=== PATIENT | female | born 1960 | race Caucasian/White ===

== ENCOUNTER → 2020-07-28 10:13 | Outpatient (BNVA) | payer OTHER, SELFPAY | PROVIDERS: PCP Internal Medicine Endocrinology, Diabetes & Metabolism; Referring Provider Internal Medicine Endocrinology, Diabetes & Metabolism; Visit Provider Internal Medicine Pulmonary Disease | DX: Z13.89 Encounter for screening for other disorder (principal) ==

== ENCOUNTER → 2021-02-09 11:28 | Outpatient (BNVA) | payer OTHER, SELFPAY | PROVIDERS: PCP Internal Medicine Endocrinology, Diabetes & Metabolism; Visit Provider Internal Medicine Pulmonary Disease ==

== ENCOUNTER 2021-07-04 10:20 | Day surgery (SDC) | payer OTHER, SELFPAY ==
[2021-07-04 10:52] VITALS: BP 125/78; PULSE 82; RESP 20; TEMP 36.6; O2SAT 98; BMI 22.4
[2021-07-04 12:12] VITALS: BP 98/64; PULSE 83; RESP 12; TEMP 36.6; O2SAT 96
--- NOTE | 2021-07-04 12:14 | P.BOP_ITS ---
Brief Operative Note Date of Service: 07/04/21 Pre-op diagnosis: GERD, Dysphagia Post-op diagnosis: other (Gastritis, Hiatal hernia, R/O EOE) Procedure: EGD with Balloon dilation of EG Junction, and biopsies Surgeon: Dominic Weems Anesthesia: MAC Was an Captain Waiter/Waitress used for this Procedure?: No Estimated blood loss (mL): 3.0 Pathology: other (A. Gastric antrum B. Esophagus at 25cm) Condition: stable Disposition: PACU
[2021-07-04 12:27] VITALS: BP 121/70; PULSE 71; RESP 18; TEMP 36.6; O2SAT 97
--- NOTE | 2021-07-04 22:09 | OP_ITS ---
SURGEON: Dominic Weems MD INDICATIONS: The patient presents for evaluation of dysphagia and gastroesophageal reflux. Full consent has been obtained from her for this, including risks of bleeding and perforation. PREOPERATIVE DIAGNOSIS: POSTOPERATIVE DIAGNOSIS: PROCEDURE PERFORMED: Esophagogastroduodenoscopy with balloon dilation of gastroesophageal junction, and biopsies. ESTIMATED BLOOD LOSS: COMPLICATIONS: ANESTHESIA: Monitored anesthesia care. ASSISTANTS: SPECIMENS: PREOPERATIVE DIAGNOSES: Gastroesophageal reflux and dysphagia. POSTOPERATIVE DIAGNOSES: Gastroesophageal reflux and dysphagia, small hiatal hernia, gastritis, rule out eosinophilic esophagitis. DESCRIPTION OF PROCEDURE: The patient was placed in the left lateral decubitus position. The Olympus video gastroscope was passed in the posterior oropharynx and upper esophagus under direct vision. The scope was passed slowly into the distal esophagus. The gastroesophageal junction appeared at 35 cm. There was no sign of any esophagitis. There was no sign of any esophageal stricture nor ring. The scope passed into the stomach easily. There was a minimal hiatal hernia. The scope was advanced to pylorus and duodenum was cannulated to the descending portion. The duodenum including the bulb appeared normal without mass or ulceration. The scope was withdrawn back into the stomach. The gastric antrum and body had some changes of edema and some erythema with associated some mild friability. There were no erosions or ulceration. There was good peristalsis. Biopsies were obtained from the antrum. Scope was retroflexed visualizing the proximal stomach carefully, which also appeared to show some changes consistent with gastritis, but there was no mass or ulceration. The scope was straightened out and withdrawn back into the esophagus. Given her symptomatology, I did use a [employer] incremental balloon to dilate the gastroesophageal junction from 18 mm to 19 mm to 20 mm at the recommended pressure for between 30 and 60 seconds each. Post dilation, there was some small amount of heme noted. The scope was withdrawn through the remainder of the esophagus, which appeared normal. There was no evidence of any proximal esophageal rings nor webs. Biopsies were obtained at 25 cm. The scope was withdrawn from the patient. She tolerated the procedure well and was returned to the recovery area in stable condition. IMPRESSION: 1. Small hiatal hernia. 2. Gastritis. 3. Rule out eosinophilic esophagitis. 4. Status post balloon dilation of gastroesophageal junction. PLAN: The results of the biopsy will be checked. We shall see how she does in response to today's balloon dilation. I shall have her increase the omeprazole to 20 mg b.i.d. and then see her in followup. She may need further evaluation with esophageal motility studies if her symptoms persist. She was advised to resume her aspirin tomorrow. MD EROS Dockery/LULU / [id number]
== END 2021-07-04 12:56 | disposition home or self-care (01) ==
PROVIDERS: Visit Provider Internal Medicine
PROC: (CPT 43249; principal; 2021-07-04 11:30)
DX: R13.19 Other dysphagia (principal); K21.9 Gastro-esophageal reflux disease without esophagitis; K29.70 Gastritis, unspecified, without bleeding; K44.9 Diaphragmatic hernia without obstruction or gangrene; I10 Essential (primary) hypertension; J44.9 Chronic obstructive pulmonary disease, unspecified; I25.2 Old myocardial infarction; Z79.82 Long term (current) use of aspirin; Z79.899 Other long term (current) drug therapy
CPT/HCPCS: 43249; 43239; 88305; 88342; C1726

== ENCOUNTER 2021-07-09 08:12 | Outpatient (REF) | payer OTHER, SELFPAY ==
--- NOTE | ~2021-07-09 | CT_ITS ---
EXAMINATION: CT CHEST WITHOUT CONTRAST CLINICAL INFORMATION: 61-year-old female with history of an abnormal finding of lung. COMPARISON: None TECHNIQUE: Multidetector volumetric CT imaging of the chest was done. Axial MIP volume rendering provided. Sagittal and coronal reformatted images were obtained. This CT examination was performed using dose optimization techniques as appropriate, variously including the following: *Automated exposure control *Adjustment of mA and/or kV according to patient size (this includes techniques or standardized protocols for targeted exams where dose is matched to indication/reason for exam; i.e. extremities or head) *Use of iterative reconstruction technique DLP: 131 mGy-cm FINDINGS: LUNGS AND PLEURA: Trachea and central airways are widely patent and normal in caliber. Mild centrilobular emphysema. Also, mild paraseptal emphysema is noted at lung apices. The subtle centrilobular groundglass attenuation in both lungs likely reflects presence of respiratory bronchiolitis secondary to chronic cigarette smoking (if in the proper clinical context). There is a suture line from wedge resection in the posterior left upper lobe. Linear opacities of atelectasis or scar are present in the lingula and lower lobes. No pulmonary consolidation or pleural effusion. Multiple noncalcified and calcified micronodules are present in both lungs, including a 0.3 cm noncalcified nodule in the lateral left lung apex (image 63, series 7). No suspicious-appearing nodule or mass. A small lymph node is seen along the left major fissure. CARDIOVASCULAR: The heart size is normal. [id number] atherosclerotic calcification of left anterior descending and left circumflex coronary arteries. There is scattered atherosclerotic calcification of the thoracic aorta without aneurysm. Pulmonary arteries are normal in size. Pericardial effusion. MEDIASTINUM AND LOWER NECK: The esophagus and visualized inferior portion of the thyroid gland are unremarkable. No mediastinal mass. LYMPHATICS: No axillary or internal mammary lymphadenopathy. No pathologic sized mediastinal or hilar lymph nodes. UPPER ABDOMEN: Gallbladder is surgically absent. Adrenal glands are normal. SKELETAL AND CHEST WALL: There is hyperkyphosis of the degenerated thoracic spine. Mild height loss of several thoracic vertebra. Also, there is an old T8 vertebral body compression fracture, approximately 45% anterior height loss, status post cement augmentation. No acute compression fractures. Multiple old, healed left rib fractures. CT/CT chest wo con IMPRESSION: * Mild pulmonary emphysema. * Prior wedge resection of posterior left upper lobe. No evidence of nodule or mass in the area of prior surgery. No lymphadenopathy. * Multiple noncalcified and calcified micronodules are present in both lungs, and some of the nodular foci likely represent secretions in peripheral airways. There are no large or suspicious appearing lung nodules. Based on Fleischner Society guidelines, noncontrast chest CT follow-up is not required in a low-risk patient and may be considered optional at 12 months in a high risk patient. * No acute fractures in the degenerated, hyperkyphotic thoracic spine. There has been cement augmentation of the T8 vertebral body compression fracture.
== END 2021-07-09 08:13 | disposition home or self-care (01) ==
LOC: HO.CT 08:12
PROVIDERS: PCP Internal Medicine Endocrinology, Diabetes & Metabolism; Visit Provider Internal Medicine Pulmonary Disease
DX: R91.8 Other nonspecific abnormal finding of lung field (principal)
CPT/HCPCS: 71250

== ENCOUNTER → 2021-07-30 09:57 | Outpatient (BNVA) | payer OTHER, SELFPAY | PROVIDERS: Visit Provider Internal Medicine Pulmonary Disease ==

== ENCOUNTER → 2022-01-11 13:56 | Outpatient (BNVA) | payer OTHER, SELFPAY | PROVIDERS: PCP Internal Medicine Endocrinology, Diabetes & Metabolism; Visit Provider Internal Medicine Pulmonary Disease | DX: Z13.89 Encounter for screening for other disorder (principal) ==

== ENCOUNTER 2022-01-29 12:22 | Outpatient (REF) | payer OTHER, SELFPAY ==
--- NOTE | ~2022-01-29 | CT_ITS ---
EXAMINATION: CT CHEST WITHOUT CONTRAST CLINICAL INFORMATION: Post COVID. COMPARISON: 07/09/2021 TECHNIQUE: Multidetector volumetric CT imaging of the chest was done. Axial MIP volume rendering provided. Sagittal and coronal reformatted images were obtained. This CT examination was performed using dose optimization techniques as appropriate, variously including the following: *Automated exposure control *Adjustment of mA and/or kV according to patient size (this includes techniques or standardized protocols for targeted exams where dose is matched to indication/reason for exam; i.e. extremities or head) *Use of iterative reconstruction technique DLP: 233 mGy-cm FINDINGS: LUNGS: No confluent parenchymal disease is identified. There is some bibasilar dependent atelectasis seen versus scarring. There is some mild bronchial wall thickening present without bronchiectasis which may be related to respiratory bronchiolitis of smoking. There are mild findings of centrilobular emphysema seen bilaterally. Numerous sub-4 mm densities are present bilaterally. Some of these have the appearance of tree-in-bud disease which could be infectious or related to mucus plugging. Calcified granulomas are seen. Patient is status post previous left upper lobe surgery with suture line in place. MEDIASTINUM: Visualized thyroid gland unremarkable. No mediastinal or hilar lymphadenopathy is seen. Heart normal size. Prominent coronary artery calcification present. No pericardial effusion. Nonocclusive calcified plaque seen within the aortic arch. No thoracic aortic aneurysm. PLEURA: There is no pleural effusion. No pleural mass or thickening. AXILLA: No lymphadenopathy. UPPER ABDOMEN: Status post cholecystectomy. OSSEOUS STRUCTURES: No suspicious destructive bony lesion identified. Multiple old healed left rib fractures, some of which may be postsurgical in nature. There is multilevel degenerative disc disease present with augmentation of previous T8 vertebral body fracture. Schmorl's nodes are seen at multiple levels. CT/CT chest wo con IMPRESSION: Old granulomatous disease. Status post previous left upper lobe surgery. Prominent atherosclerotic calcified plaque. No suspicious lung nodules identified. According to the UPDATED 2017 Fleischner Society recommendations, the advised followup imaging for solid nodules < 6 mm is: LOW RISK PATIENT: No routine followup. HIGH RISK PATIENT: Optional CT at 12 months.
== END 2022-01-29 12:23 | disposition home or self-care (01) ==
LOC: HO.CT 12:22
PROVIDERS: PCP Internal Medicine Endocrinology, Diabetes & Metabolism; Visit Provider Internal Medicine Pulmonary Disease
DX: U09.9 Post COVID-19 condition, unspecified (principal); Z90.49 Acquired absence of other specified parts of digestive tract
CPT/HCPCS: 71250

== ENCOUNTER → 2022-02-07 14:23 | Outpatient (BNVA) | payer OTHER, SELFPAY | PROVIDERS: PCP Internal Medicine Endocrinology, Diabetes & Metabolism; Visit Provider Internal Medicine Pulmonary Disease | DX: Z13.89 Encounter for screening for other disorder (principal) ==

== ENCOUNTER → 2022-09-05 14:01 | Outpatient (BNVA) | payer OTHER, SELFPAY | PROVIDERS: PCP Internal Medicine Endocrinology, Diabetes & Metabolism; Visit Provider Internal Medicine Pulmonary Disease | DX: J44.9 Chronic obstructive pulmonary disease, unspecified (principal); Z99.81 Dependence on supplemental oxygen | CPT/HCPCS: 94618 ==

== ENCOUNTER 2022-10-01 07:57 | Outpatient (REF) | payer OTHER, SELFPAY ==
--- NOTE | ~2022-10-01 | XR_ITS ---
EXAMINATION: XR CHEST CLINICAL INFORMATION: COPD COMPARISON: Correlation chest CT 01/29/2022 TECHNIQUE: 2 views of the chest were obtained. FINDINGS: Cardiac and mediastinal silhouette is within normal limits. Relative lucency of the upper lungs bilaterally, suggesting emphysematous changes. There is mild bronchial wall thickening. Patchy opacities in the right lung base, could represent atelectasis or infiltrate. No significant effusion. No pulmonary edema or pneumothorax. Evidence of vertebral body height loss and kyphoplasty in the mid thoracic spine. Osteopenia.. Multilevel dorsal spine degeneration. Surgical clips in the upper abdomen. XR/XR chest 2V IMPRESSION: Emphysema. Bronchial wall thickening can be seen with a small airway process such as asthma or atypical/viral infections. Right basilar opacities could reflect atelectasis or infiltrate.
== END 2022-10-01 07:58 | disposition home or self-care (01) ==
LOC: HO.XRAY 07:57
PROVIDERS: PCP Internal Medicine Endocrinology, Diabetes & Metabolism; Visit Provider Internal Medicine Pulmonary Disease
DX: J44.9 Chronic obstructive pulmonary disease, unspecified (principal)
CPT/HCPCS: 71046

== ENCOUNTER 2023-01-31 08:53 | Outpatient (REF) | payer OTHER, SELFPAY ==
--- NOTE | 2023-01-31 09:57 | PFT_ITS ---
INDICATION: COPD. SPIROMETRY: FEV1 to FVC of 57% with an FEV1 of 0.83 L, which is 34% predicted and FVC of 1.46 L, which is 46% predicted. No significant response to bronchodilator is noted. The maximum voluntary ventilation of 41% predicted. LUNG VOLUMES: Total lung capacity 96% predicted with an expiratory residual volume of 140% predicted. DIFFUSION CAPACITY: DLCO 37% predicted. COMPARISON: None. INTERPRETATION: There is an obstructive ventilatory defect consistent with severe COPD. No significant response to bronchodilator is noted. Severe decrease in the maximum voluntary ventilation secondary to deconditioning and also worsening dynamic inspiratory capacity. Lung volumes are significant air trapping due to the COPD and there is also a severe diffusion impairments secondary to likely emphysematous changes and/or other parenchymal lung condition should be considered. Should also correct for hemoglobin. Clinical correlation warranted. MD DENNY Hubbard/[facility]UL[facility] / [id number]
== END 2023-01-31 08:54 | disposition home or self-care (01) ==
LOC: HO.RESP 08:53
PROVIDERS: PCP Internal Medicine Endocrinology, Diabetes & Metabolism; Visit Provider Internal Medicine Pulmonary Disease
DX: J44.9 Chronic obstructive pulmonary disease, unspecified (principal)
CPT/HCPCS: 94010; 94727; 94729

== ENCOUNTER → 2023-03-20 09:51 | Outpatient (BNVA) | payer OTHER, SELFPAY | PROVIDERS: PCP Internal Medicine Endocrinology, Diabetes & Metabolism; Visit Provider Internal Medicine Pulmonary Disease ==

== ENCOUNTER → 2023-04-29 13:43 | Outpatient (REF) | payer OTHER, SELFPAY | LOC: HO.SL 13:43 | PROVIDERS: PCP Internal Medicine Endocrinology, Diabetes & Metabolism; Visit Provider Internal Medicine Pulmonary Disease | DX: G47.33 Obstructive sleep apnea (adult) (pediatric) (principal); R06.83 Snoring | CPT/HCPCS: 95806 ==

== ENCOUNTER → 2023-04-29 13:52 | Outpatient (BNV) | payer OTHER, SELFPAY ==
[2023-04-08 08:04] VITALS: BMI 22.6
== END ==
PROVIDERS: PCP Internal Medicine Endocrinology, Diabetes & Metabolism; Visit Provider Internal Medicine
DX: R06.83 Snoring (principal)
CPT/HCPCS: 95806

== ENCOUNTER 2023-05-16 13:50 | Outpatient (AMB) | payer OTHER, SELFPAY ==
[2023-04-08 08:04] VITALS: BMI 22.6
[2023-05-07 07:21] VITALS: BMI 22.6
--- NOTE | 2023-05-16 13:52 | MHC.OFFVIS ---
Intake Vital Signs 05/16/23 13:53 Height 5 ft 5 in Weight 138 lb 14.259 oz BMI 23.1 BP 147/72 H Blood Pressure Location Lt brachial Position Sitting Pulse 89 Pulse Source Doppler Pulse Oximetry (%) 98 Oxygen Delivery Method Room Air Intake Visit Reasons: copd Allergies meperidine [From DEMEROL] Allergy (Severe, Verified 05/16/23 13:57) NAUSEA & VOMITING,SWELLING morphine [MORPHINE] Allergy (Mild, Verified 05/16/23 13:57) NAUSEA & VOMITING, SWELLING HPI copd HPI Details 63-year-old lady, recent 35+ pack-year smoker, followed for severe to very severe COPD and pulmonary nodules.? She has been using BrezTri, Wixela, theophylline, and albuterol MDI.? She has been working with pulmonary rehab with improvement in her symptoms.? She has had her sleep study that showed no underlying sleep apnea. [facility] Medical History (Updated 05/16/23 @ 14:22 by Mandeep Ivan MD) COPD (chronic obstructive pulmonary disease) High cholesterol HTN (hypertension) Myocardial infarct Surgical History (Updated 07/04/21 @ 10:45 by Marta Buchanan RN) H/O: hysterectomy Hx of section Social History (Updated 05/16/23 @ 13:58 by SKY Scott) Household Members: Spouse and Significant Other Household Members Other:: Patient Tobacco Use Status: Current everyday Tobacco user Cigarettes Per Day: 7 Years Smoked: 35+ Second Hand Smoke Exposure: No Review of Systems Const Denies daytime sleepiness, Denies excessive sweating, Denies fatigue, Denies fever(s), Denies lethargy, Denies malaise, Denies night sweats, Denies snoring and Denies weight loss Eyes Denies blurry vision and Denies itchy eyes ENT Denies nasal congestion, Denies post nasal drip, Denies sinus pain, Denies sinus pressure and Denies other ( Thrush) Card Denies chest pain, Denies pedal edema, Denies dyspnea, Reports dyspnea on exertion, Denies orthopnea and Denies paroxysmal nocturnal dyspnea Resp Denies cough, Denies hemoptysis, Denies excessive phlegm production, Denies dyspnea, Reports dyspnea on exertion, Denies snoring and Denies wheezing GI Denies abdominal pain and Denies heartburn Musc Denies myalgias, Denies arthralgias and Denies joint swelling Skin/Breast Denies rash Neuro Denies memory loss and Denies seizure-like activity Psych Denies abnormal sleep pattern, Denies anxiety and Denies memory loss Endo Denies excessive sweating, Denies fatigue and Denies heat intolerance Anders/Lymph Denies easy bruising Aller/Immun Denies itchy eyes, Denies seasonal rhinorrhea and Denies wheezing Physical Exam Vital Signs: Last Vital Signs Pulse 89 05/16/23 13:53 BP 147/72 H 05/16/23 13:53 Pulse Ox 98 05/16/23 13:53 Oxygen Delivery Method Room Air 05/16/23 13:53 BMI result Body Mass Index 23.1 Const General: no acute distress and alert Nutritional Appearance: not obese Orientation/consciousness: Other orientation findings ( oriented) HEENT Head: Yes atraumatic Eyes General: appearance normal, both eyes and all related structures Sclerae: sclerae normal EOM: EOMs intact bilaterally Neck Neck: Yes supple Lymphatic: no lymphadenopathy noted Resp Effort & Inspection: normal respiratory effort and no use of accessory muscles Auscultation: clear to auscultation bilaterally Cardio Rate: regular rate Rhythm: regular rhythm Heart sounds: no gallops, no murmurs and no rubs Skin General skin exam: other ( warm) Extrem General: No clubbing, No cyanosis and No edema Assessment & Plan Assessment & Plan (1) COPD (chronic obstructive pulmonary disease): Code(s): J44.9 - Chronic obstructive pulmonary disease, unspecified Plan: Underlying very severe COPD on maximum medical therapy with breath 3, Wixela, duo nebs, albuterol MDI, and theophylline. Continue current regimen. Continue pulmonary rehab. (2) Pulmonary nodules: Code(s): R91.8 - Other nonspecific abnormal finding of lung field Plan: CT chest requested. (3) Supplemental oxygen dependent: Code(s): Z99.81 - Dependence on supplemental oxygen Plan: Continue supplemental oxygen to maintain O2 saturation of 88-92%. Orders: Orders CT chest wo IV con Today R91.8 - Other nonspecific abnormal finding of lung field Coding Level of Care Code Est Pt Level 4 (47265) Diagnoses COPD (chronic obstructive pulmonary disease) J44.9 Pulmonary nodules R91.8 Supplemental oxygen dependent Z99.81
[2023-05-16 13:53] VITALS: BP 147/72; PULSE 89; O2SAT 98; BMI 23.1
== END 2023-05-16 14:19 | disposition home or self-care (01) ==
PROVIDERS: PCP Internal Medicine Endocrinology, Diabetes & Metabolism; Visit Provider Internal Medicine Pulmonary Disease
DX: J44.9 Chronic obstructive pulmonary disease, unspecified (principal); R91.8 Other nonspecific abnormal finding of lung field; Z99.81 Dependence on supplemental oxygen
CPT/HCPCS: 99214

== ENCOUNTER → 2023-05-16 13:50 | Outpatient (BNVA) | payer OTHER, SELFPAY ==
[2023-05-07 07:21] VITALS: BMI 22.6
== END ==
PROVIDERS: PCP Internal Medicine Endocrinology, Diabetes & Metabolism; Visit Provider Internal Medicine Pulmonary Disease

== ENCOUNTER 2023-05-29 09:47 | Emergency (ER) | payer OTHER, SELFPAY ==
[2023-05-07 07:21] VITALS: BMI 22.6
[2023-05-29 10:32] VITALS: BP 137/98; PULSE 73; RESP 16; TEMP 36.7; O2SAT 95; BMI 23.4
== END 2023-05-29 15:35 | disposition left against medical advice (07) ==
LOC: HO.ED 15:35
PROVIDERS: Emergency Provider Emergency Medicine; PCP Internal Medicine Endocrinology, Diabetes & Metabolism
DX: K62.5 Hemorrhage of anus and rectum (principal)
CPT/HCPCS: 99281

== ENCOUNTER 2023-06-13 07:41 | Outpatient (REF) | payer OTHER, SELFPAY ==
[2023-05-07 07:21] VITALS: BMI 22.6
--- NOTE | ~2023-06-13 | CT_ITS ---
EXAMINATION: CT CHEST WITHOUT CONTRAST CLINICAL INFORMATION: Pulmonary nodules. COMPARISON: CT chest 01/29/2022: Numerous sub-4 mm densities are present bilaterally. Some of these have the appearance of tree-in-bud disease which could be infectious or related to mucus... No suspicious lung nodules identified. TECHNIQUE: Multidetector volumetric CT imaging of the chest was done. Axial MIP volume rendering provided. Sagittal and coronal reformatted images were obtained. This CT examination was performed using dose optimization techniques as appropriate, variously including the following: *Automated exposure control *Adjustment of mA and/or kV according to patient size (this includes techniques or standardized protocols for targeted exams where dose is matched to indication/reason for exam; i.e. extremities or head) *Use of iterative reconstruction technique DLP: 195 mGy-cm FINDINGS: LUNGS: Again seen are underlying changes of COPD along with a suture line in the left upper lobe consistent with prior partial pneumonectomy. Again seen are scattered micronodules most subpleural in location. 2 largest are in the right lower lobe posteriorly measuring no more than 3 mm in size each (4:254) and these are entirely unchanged when compared to the prior study (prior 5:242). No new worrisome lung mass is seen. MEDIASTINUM: Some small mediastinal lymph nodes are present but there is no adenopathy. Heart size is normal. CORONARY ARTERY CALCIFICATION: Extensive. PLEURA: There is no pleural effusion. No pleural mass or thickening. AXILLA: No lymphadenopathy. UPPER ABDOMEN: Unremarkable. OSSEOUS STRUCTURES: There is a thoracic kyphosis associated with a compression fracture of T8 previously treated with kyphoplasty. No new worrisome bony destructive lesions are seen. CT/CT chest wo IV con IMPRESSION: 1. Stable postoperative changes left upper lobe. 2. Stable micronodules. 3. No new worrisome lung mass is seen. 4. Other incidental findings as described above including COPD, extensive coronary artery calcifications and stable previously treated T8 compression fracture. Fleischner guidelines were followed.
== END 2023-06-13 07:42 | disposition home or self-care (01) ==
LOC: HO.CT 07:41
PROVIDERS: PCP Internal Medicine Endocrinology, Diabetes & Metabolism; Visit Provider Internal Medicine Pulmonary Disease
DX: R91.8 Other nonspecific abnormal finding of lung field (principal)
CPT/HCPCS: 71250

== ENCOUNTER 2023-09-11 13:38 | Outpatient (AMB) | payer OTHER, SELFPAY ==
[2023-05-07 07:21] VITALS: BMI 22.6
[2023-09-11 13:39] VITALS: BP 142/82; PULSE 88; O2SAT 95; BMI 23.1
--- NOTE | 2023-09-11 13:39 | A.OFFVIS_ITS ---
Intake Vital Signs 09/11/23 13:39 Height 5 ft 5 in Weight 138 lb 14.259 oz BMI 23.1 BP 142/82 H Blood Pressure Location Lt brachial Position Sitting Pulse 88 Pulse Source Doppler Pulse Oximetry (%) 95 Oxygen Delivery Method Nasal Cannula Oxygen Flow Rate 2 Intake Visit Reasons: copd Allergies meperidine [From DEMEROL] Allergy (Severe, Verified 09/11/23 13:44) NAUSEA & VOMITING,SWELLING morphine [MORPHINE] Allergy (Mild, Verified 09/11/23 13:44) NAUSEA & VOMITING, SWELLING HPI copd HPI Details 63-year-old lady, recent 35+ pack-year s moker, followed for severe to very severe supplemental oxygen dependent COPD and pulmonary nodules.? She has been using BrezTri, theophylline, and albuterol MDI.? She complains today of an acute exacerbation symptomatic with cough productive of greenish sputum. [facility] Medical History (Updated 09/11/23 @ 14:10 by Mandeep Ivan MD) High cholesterol HTN (hypertension) Myocardial infarct COPD (chronic obstructive pulmonary disease) Surgical History (Updated 07/04/21 @ 10:45 by Marta Buchanan RN) H/O: hysterectomy Hx of section Social History Household Members: Spouse and Significant Other Household Members Other:: Patient Tobacco Use Status: Current everyday Tobacco user Cigarettes Per Day: 7 Years Smoked: 35+ Second Hand Smoke Exposure: No Review of Systems Const Denies daytime sleepiness, Denies excessive sweating, Denies fatigue, Denies fever(s), Denies lethargy, Denies malaise, Denies night sweats, Denies snoring and Denies weight loss Eyes Denies blurry vision and Denies itchy eyes ENT Denies nasal congestion, Denies post nasal drip, Denies sinus pain, Denies sinus pressure and Denies other ( Thrush) Card Denies chest pain, Denies pedal edema, Denies dyspnea, Denies orthopnea and Denies paroxysmal nocturnal dyspnea Resp Reports cough, Denies hemoptysis, Denies excessive phlegm production, Denies dyspnea, Denies snoring and Reports wheezing GI Denies abdominal pain and Denies heartburn Musc Denies myalgias, Denies arthralgias and Denies joint swelling Skin/Breast Denies rash Neuro Denies memory loss and Denies seizure-like activity Psych Denies abnormal sleep pattern, Denies anxiety and Denies memory loss Endo Denies excessive sweating, Denies fatigue and Denies heat intolerance Anders/Lymph Denies easy bruising Aller/Immun Denies itchy eyes, Denies seasonal rhinorrhea and Reports wheezing Physical Exam Vital Signs: Last Vital Signs Pulse 88 09/11/23 13:39 BP 142/82 H 09/11/23 13:39 Pulse Ox 95 09/11/23 13:39 Oxygen Delivery Method Nasal Cannula 09/11/23 13:39 Oxygen Flow Rate 2 09/11/23 13:39 BMI result Body Mass Index 23.1 Const General: no acute distress and alert Nutritional Appearance: not obese Orientation/consciousness: Other orientation findings ( oriented) HEENT Head: Yes atraumatic Eyes General: appearance normal, both eyes and all related structures Sclerae: sclerae normal EOM: EOMs intact bilaterally Neck Neck: Yes supple Lymphatic: no lymphadenopathy noted Resp Effort & Inspection: normal respiratory effort and no use of accessory muscles Auscultation: clear to auscultation bilaterally Cardio Rate: regular rate Rhythm: regular rhythm Heart sounds: no gallops, no murmurs and no rubs Skin General skin exam: other ( warm) Extrem General: No clubbing, No cyanosis and No edema Assessment & Plan Assessment & Plan (1) COPD (chronic obstructive pulmonary disease): Code(s): J44.9 - Chronic obstructive pulmonary disease, unspecified Plan: Baseline controlled current regimen of BrezTri, theophylline, duo nebs, and albuterol MDI. Continue current regimen. Will treat acute exacerbation with a course of levofloxacin prednisone. (2) Supplemental oxygen dependent: Code(s): Z99.81 - Dependence on supplemental oxygen Plan: Continue supplemental oxygen to maintain O2 saturation of 88-92%. (3) Pulmonary nodules: Code(s): R91.8 - Other nonspecific abnormal finding of lung field Plan: Results of follow-up CT chest reviewed, stable underlying pulmonary nodules. Will repeat CT chest in 12 months. (4) Preop pulmonary/respiratory exam: Code(s): Z01.811 - Encounter for preprocedural respiratory examination Plan: At this time patient is at low risk for pulmonary perioperative complications for the proposed colonoscopy either under general anesthesia, or monitored anesthesia care. Medications: New guaifenesin ER 600 mg PO Q12H 60 tabs 0RF Refilled levofloxacin 750 mg PO DAILY 10 tabs 0RF prednisone 40 mg (2 x 20 mg) PO DAILY 10 tabs 0RF 5 days Coding Level of Care Code Est Pt Level 4 (71837) Diagnoses COPD (chronic obstructive pulmonary disease) J44.9 Supplemental oxygen dependent Z99.81 Pulmonary nodules R91.8 Preop pulmonary/respiratory exam Z01.811
== END 2023-09-11 14:07 | disposition home or self-care (01) ==
PROVIDERS: PCP Internal Medicine Endocrinology, Diabetes & Metabolism; Visit Provider Internal Medicine Pulmonary Disease
DX: J44.9 Chronic obstructive pulmonary disease, unspecified (principal); Z99.81 Dependence on supplemental oxygen; R91.8 Other nonspecific abnormal finding of lung field; Z01.811 Encounter for preprocedural respiratory examination
CPT/HCPCS: 99214

== ENCOUNTER → 2023-09-11 13:38 | Outpatient (BNVA) | payer OTHER, SELFPAY ==
[2023-05-07 07:21] VITALS: BMI 22.6
== END ==
PROVIDERS: PCP Internal Medicine Endocrinology, Diabetes & Metabolism; Visit Provider Internal Medicine Pulmonary Disease
DX: Z01.811 Encounter for preprocedural respiratory examination (principal); J44.9 Chronic obstructive pulmonary disease, unspecified; R91.8 Other nonspecific abnormal finding of lung field; Z99.81 Dependence on supplemental oxygen
CPT/HCPCS: 99212

== ENCOUNTER 2023-09-29 13:34 | Outpatient (AMB) | payer OTHER, SELFPAY ==
[2023-05-07 07:21] VITALS: BMI 22.6
[2023-09-29 14:00] VITALS: BP 124/78; PULSE 78; O2SAT 95; BMI 23.1
--- NOTE | 2023-09-29 14:00 | MHC.OFFVIS ---
Intake Vital Signs 09/29/23 14:00 Height 5 ft 5 in Weight 138 lb 14.259 oz BMI 23.1 BP 124/78 Blood Pressure Location Lt brachial Position Sitting Pulse 78 Pulse Source Pulse Oximeter Pulse Oximetry (%) 95 Oxygen Delivery Method Room Air Intake Visit Reasons: 6 min walk/flu shot Allergies meperidine [From DEMEROL] Allergy (Severe, Verified 09/29/23 14:02) NAUSEA & VOMITING,SWELLING morphine [MORPHINE] Allergy (Mild, Verified 09/29/23 14:02) NAUSEA & VOMITING, SWELLING Medication List - Last Reconciled 09/29/23 by Socorro Dodson LPN albuterol sulfate 2.5 mg (3 mL) inhalation Q4H PRN albuterol sulfate 90 mcg/actuation 2 puffs inhalation Q4-6H PRN amlodipine 5 mg PO DAILY benzonatate 200 mg PO BID PRN 30 days Breztri Aerosphere 160-9-4.8 mcg/actuation (cwzugreggd-rfxsbyic-sdggovwceq) INHALE 2 PUFFS BY MOUTH INTO LUNGS TWICE A DAY FOR 30 DAYS NS budesonide-formoterol 160-4.5 mcg/actuation (Symbicort) 2 puffs inhalation BID 30 days clonidine HCl 0.2 mg PO BID doxycycline hyclate 100 mg PO BID 10 days evolocumab mg subcut Q2W gabapentin 300 mg PO TID guaifenesin ER 600 mg PO Q12H levalbuterol HCl mg inhalation levofloxacin 750 mg PO DAILY lorazepam 1 mg PO BID losartan 100 mg PO DAILY metoprolol tartrate 100 mg PO BID montelukast 10 mg PO BEDTIME nirmatrelvir-ritonavir 300 mg (150 mg x 2)-100 mg (Paxlovid) take TWO 150 mg tablets of nirmatrelvir with ONE 100 mg tablet of ritonavir twice daily for 5 days PO omeprazole 20 mg PO DAILY prednisone 40 mg (2 x 20 mg) PO DAILY 5 days theophylline ER (Demond-24) 200 mg PO DAILY PFSH Medical History (Updated 09/11/23 @ 14:10 by Mandeep Ivan MD) High cholesterol HTN (hypertension) Myocardial infarct COPD (chronic obstructive pulmonary disease) Surgical History (Updated 07/04/21 @ 10:45 by Marta Buchanan RN) H/O: hysterectomy Hx of section Social History Household Members: Spouse and Significant Other Household Members Other:: Patient Tobacco Use Status: Current everyday Tobacco user Cigarettes Per Day: 7 Years Smoked: 35+ Second Hand Smoke Exposure: No Physical Exam Vital Signs: Last Vital Signs Pulse 78 09/29/23 14:00 BP 124/78 09/29/23 14:00 Pulse Ox 95 09/29/23 14:00 Oxygen Delivery Method Room Air 09/29/23 14:00 BMI result Body Mass Index 23.1 Office Procedures 6 Minute Walk Time:: 13:45 SPO2 % at rest: 95 Pulse at rest: 78 SPO2 % during excercise: 88 Pulse during excercise: 89 SPO2 % after excercise: 96 Pulse after excercise: 87 Distance in yards walked: 260 [place] Score: 3 Performance Observations:: Connie walked on level ground without assistance, she walked for 3 minutes on room air before her SPO2 decreased to 88%, O2 started at 2 lpm and with a brief rest her SPO2 recovered to 95%. She maintained her SPO2 95-96% on O2 2 lpm for the remainder of the walk. [id number] - 6 Minute Walk Flu Questionnaire Does the patient have a severe egg allergy?: No Does the patient have severe life threatening allergies?: No Does the patient have a fever or illness today?: No Has the patient ever had Guillain-[place] Syndrome?: No Has the patient ever had any past reaction to a flu shot?: No Immunizations flu vacc [id number] 6mos up(PF) 60 mcg(15 mcgx4)/0.5 mL IM syringe Performing Provider: Aidna Duff MD Performing Location: [facility] Administered by: Socorro Dodson LPN on 09/29/23 14:02 Dose Route Admin Location Dispensed Lot Number Expiration Date [facility] Installer Inspector Final 0.5 mL IM Right Deltoid 0.5 mL [id number] 03/21/24 95402-390-65 Appy Couple VIS Given Date VIS Provided VIS Publication Date 09/29/23 Single Vaccine 21 Eligibility Eligibility Date Funding Source Not [facility] Eligible 09/29/23 Private Assessment & Plan Assessment & Plan (1) COPD (chronic obstructive pulmonary disease): Code(s): J44.9 - Chronic obstructive pulmonary disease, unspecified (2) Supplemental oxygen dependent: Code(s): Z99.81 - Dependence on supplemental oxygen Plan Supplemental oxygen/6 minute walk test Orders: Orders AMB 6 minute walk 09/29/23 J44.9 - Chronic obstructive pulmonary disease, unspecified Mandeep Ivan MD Influenza [id number] Immunization 09/29/23 J44.9 - Chronic obstructive pulmonary disease, unspecified Aidan Duff MD Coding Level of Care Code Established Pt Est Pt Level 1 (54992) Patient Type Established Diagnoses COPD (chronic obstructive pulmonary disease) J44.9 Supplemental oxygen dependent Z99.81 CPT Codes Coding ([id number]) Comment NURSE VISIT ONLY
[2023-09-29 14:07] VITALS: PULSE 78; O2SAT 95
== END 2023-09-29 14:00 | disposition home or self-care (01) ==
PROVIDERS: PCP Internal Medicine Endocrinology, Diabetes & Metabolism; Visit Provider Internal Medicine Pulmonary Disease
DX: J44.9 Chronic obstructive pulmonary disease, unspecified (principal); Z99.81 Dependence on supplemental oxygen

== ENCOUNTER → 2023-09-29 13:34 | Outpatient (BNVA) | payer OTHER, SELFPAY ==
[2023-05-07 07:21] VITALS: BMI 22.6
== END ==
PROVIDERS: PCP Internal Medicine Endocrinology, Diabetes & Metabolism; Visit Provider Internal Medicine Pulmonary Disease
DX: Z23 Encounter for immunization (principal); J44.9 Chronic obstructive pulmonary disease, unspecified; Z99.81 Dependence on supplemental oxygen
CPT/HCPCS: 90471; 90686; 99211

== ENCOUNTER 2023-10-13 10:23 | Day surgery (SDC) | payer OTHER, SELFPAY ==
[2023-05-07 07:21] VITALS: BMI 22.6
[2023-10-09 10:15] VITALS: BMI 23.1
--- NOTE | 2023-10-10 08:21 | HO.ANESPROP2 ---
Documented by User: Ileana Barron NP 10/10/23 09:01 HPI - Anesthesia Eval Consult details Narrative: 63yo F for Colonoscopy Pulmo cleared. Supplemental O2, COPD, COVID x 2 in 2022 Follows [facility] cardiology: CAD s/p stent 2013, htn, hld. ECHO 10/2022 WNL PMFSH Active Problems Active Problems: All Active Problems (Updated 10/09/23 @ 10:23 by Perla Farrar RN) Preop pulmonary/respiratory exam (Acute) Supplemental oxygen dependent (Acute) Post covid-19 condition, unspecified (Acute) Pulmonary nodules (Acute) Environmental allergies (Acute) COPD (chronic obstructive pulmonary disease) (Acute) Past Medical History Medical History High cholesterol HTN (hypertension) Myocardial infarct COPD (chronic obstructive pulmonary disease) Surgical History Surgical History Hx of cataract extraction History of lung surgery Hx of heart artery stent Hx of excision of mass History of nasal surgery H/O colonoscopy History of esophagogastroduodenoscopy (EGD) H/O: hysterectomy Hx of section Social History Social History Household Members: Spouse and Significant Other Household Members Other:: Patient Tobacco Use Status: Current everyday Tobacco user Cigarettes Per Day: 7 Years Smoked: 35+ Second Hand Smoke Exposure: No Advance Directives: No Advance Directives Information Provided: Yes Meds Allergies Allergy/AdvReac Type Severity Reaction Status Date / Time meperidine [From DEMEROL] Allergy Severe NAUSEA & Verified 09/29/23 14:02 VOMITING,SWELLING morphine [MORPHINE] Allergy Mild NAUSEA & Verified 09/29/23 14:02 VOMITING, SWELLING Home Medications Medication Instructions Recorded Confirmed Last Taken Type amlodipine 5 mg tablet 5 mg PO DAILY blood pressure 07/28/20 10/09/23 10/13/23 06:30 History evolocumab 140 mg/mL subcutaneous 140 mg subcut Q2W 07/28/20 10/09/23 Unknown History pen injector levalbuterol HCl 1.25 mg/3 mL 1.25 mg inhalation Q4H PRN 07/28/20 10/09/23 Unknown History solution for nebulization Shortness Of Breath Or Wheezing lorazepam 1 mg tablet 1 mg PO BID 07/28/20 10/09/23 Unknown History losartan 100 mg tablet 100 mg PO DAILY 07/28/20 10/09/23 Unknown History metoprolol tartrate 100 mg tablet 100 mg PO BID 07/28/20 10/09/23 10/13/23 06:30 History clonidine HCl 0.2 mg tablet 0.2 mg PO BID 07/30/21 10/09/23 Unknown History gabapentin 300 mg capsule 300 mg PO TID 07/30/21 10/09/23 Unknown History omeprazole 20 mg capsule,delayed 20 mg PO DAILY 07/30/21 10/09/23 Unknown History release budesonide 160 mcg-glycopyr 9 2 inh inhalation BID 10/09/23 10/09/23 10/13/23 06:30 History mcg-formot 4.8 mcg/actuation HFA inhaler (Take the [employer] Vanilla Forumsphere) Exam Height,Weight and Vital Signs: Height 5 ft 5 in Weight 63.049 kg Assessment and Plan Assessment Anesthesia Assessment: Chart Reviewed Documented by User: Dennise Fajardo MD 10/13/23 10:55 PMFSH Past Medical History Medical History High cholesterol HTN (hypertension) Myocardial infarct COPD (chronic obstructive pulmonary disease) Family History Family history of problems with anesthesia: No Surgical History Surgical History Hx of cataract extraction History of lung surgery Hx of heart artery stent Hx of excision of mass History of nasal surgery H/O colonoscopy History of esophagogastroduodenoscopy (EGD) H/O: hysterectomy Hx of section History of Problems with Anesthesia: No Social History Social History Household Members: Spouse and Significant Other Household Members Other:: Patient Tobacco Use Status: Current everyday Tobacco user Cigarettes Per Day: 7 Years Smoked: 35+ Second Hand Smoke Exposure: No Advance Directives: No Advance Directives Information Provided: Yes Meds Allergies Allergy/AdvReac Type Severity Reaction Status Date / Time meperidine [From DEMEROL] Allergy Severe NAUSEA & Verified 09/29/23 14:02 VOMITING,SWELLING morphine [MORPHINE] Allergy Mild NAUSEA & Verified 09/29/23 14:02 VOMITING, SWELLING Home Medications Medication Instructions Recorded Confirmed Last Taken Type amlodipine 5 mg tablet 5 mg PO DAILY blood pressure 07/28/20 10/09/23 10/13/23 06:30 History evolocumab 140 mg/mL subcutaneous 140 mg subcut Q2W 07/28/20 10/09/23 Unknown History pen injector levalbuterol HCl 1.25 mg/3 mL 1.25 mg inhalation Q4H PRN 07/28/20 10/09/23 Unknown History solution for nebulization Shortness Of Breath Or Wheezing lorazepam 1 mg tablet 1 mg PO BID 07/28/20 10/09/23 Unknown History losartan 100 mg tablet 100 mg PO DAILY 07/28/20 10/09/23 Unknown History metoprolol tartrate 100 mg tablet 100 mg PO BID 07/28/20 10/09/23 10/13/23 06:30 History clonidine HCl 0.2 mg tablet 0.2 mg PO BID 07/30/21 10/09/23 Unknown History gabapentin 300 mg capsule 300 mg PO TID 07/30/21 10/09/23 Unknown History omeprazole 20 mg capsule,delayed 20 mg PO DAILY 07/30/21 10/09/23 Unknown History release budesonide 160 mcg-glycopyr 9 2 inh inhalation BID 10/09/23 10/09/23 10/13/23 06:30 History mcg-formot 4.8 mcg/actuation HFA inhaler (Take the Interviewztri Vanilla Forumsphere) Exam Airway Mallampati Class: II TM Dist: >3cm Neck ROM: Limited Heart: rrr Lungs: cta Other: on 2 liters home oxygen Assessment and Plan Assessment Anesthesia Assessment: Anesthesia Plan Discussed Final Anesthetic Review Family History of Problems with Anesthesia: No History of Problems with Anesthesia: No NPO: Yes ASA Class: III Final Preanesthetic Review: No Changes in Pt Med Stat, Meds/Allgs Chart Reviewed, Consent Obtained/Reviewed and Anes Risks/Benef Reviewed Patient Risk: Intermediate Procedure Risk: Low Anesthetic Plan Anesthetic Plan: MAC: Disposition: Standard PACU
[2023-10-13 10:45] VITALS: BMI 22.4
[2023-10-13 10:53] VITALS: BMI 22.4
[2023-10-13 11:06] VITALS: BP 170/99; PULSE 83; RESP 16; TEMP 36.5; O2SAT 98
[2023-10-13] MEDS: Lactated Ringers 1,000 ML 100 ML IVCONT (11:08)
[2023-10-13 12:25] VITALS: BP 138/87; PULSE 84; RESP 16; TEMP 37.1; O2SAT 97
--- NOTE | 2023-10-13 12:32 | PM.OP ---
Brief Operative Note Date of Service: 10/13/23 Pre-op diagnosis: Screening, Hx of polyps, Rectal bleeding Post-op diagnosis: other (Colon polyps) Procedure: Colonoscopy to the cecum with hot snare polypectomy x 4, Placement of 2 Resolution clips on proximal ascending colon polypectomy site, bx/removal of cecal polyp Surgeon: Dominic Weems MD Anesthesia: MAC Was an Physical Therapy Aide used for this Procedure?: No Estimated blood loss (mL): 2.0 Pathology: other (A. Polyp at 50cm B. Cecal polyp C. Proximal ascending colon polyp D. Transverse colon polyps) Condition: stable Disposition: PACU
[2023-10-13 12:40] VITALS: BP 152/80; PULSE 82; RESP 16; TEMP 37.1; O2SAT 99
--- NOTE | 2023-10-13 13:05 | OP_ITS ---
DATE OF SERVICE: 10/13/2023 SURGEON: Dominic Weems MD INDICATIONS: The patient presents for evaluation of intermittent hematochezia, personal history of tubular adenoma of the colon, and family history of colon cancer. Full consent has been obtained from her for this, including risks of bleeding and perforation. PREOPERATIVE DIAGNOSIS: POSTOPERATIVE DIAGNOSIS: PROCEDURE PERFORMED: Colonoscopy to the cecum with hot snare polypectomy x 4 and biopsy and removal of polyp. ESTIMATED BLOOD LOSS: COMPLICATIONS: ANESTHESIA: Monitored anesthesia care. ASSISTANTS: SPECIMENS: PREOPERATIVE DIAGNOSES: Hematochezia, personal history of tubular adenoma of the colon, and family history of colon cancer. POSTOPERATIVE DIAGNOSES: Hematochezia, personal history of tubular adenoma of the colon, family history of colon cancer, colon polyps, diverticulosis, and internal hemorrhoids. DESCRIPTION OF PROCEDURE: The patient was placed in the left lateral decubitus position. The digital rectal exam revealed no abnormalities. The Olympus video pediatric colonoscope was entered into the rectum and advanced to 50 cm. At this level was an approximately 1.2 cm polyp, which was removed by hot snare polypectomy and recovered by withdrawing it on the tip of the scope. The scope was then readvanced back in the polypectomy site at 50 cm, which appeared clean, without any sign of residual polyp nor bleeding. I then advanced to the cecum without difficulty. Once in the cecum, I did identify cecal pouch with appendiceal orifice and a normal-appearing ileocecal valve. The entire cecum appeared normal other than a 3 mm polyp, which was biopsied and completely removed with a cold biopsy forceps. The scope was then slowly withdrawn assessing all mucosal surfaces carefully. Preparation was excellent. In the proximal ascending colon, about 2 folds from the cecum, was a fairly large, approximately 3 x 1 cm polypoid lesion. This appeared to be grossly adenomatous and did not appear suspicious for malignancy. It was removed completely in piecemeal fashion. One piece was recovered by suction, and the other 2 pieces were recovered simultaneously with the retrieval net by taking the scope out of the patient. The scope was then readvanced back to that polypectomy site. This appeared clean, without any sign of residual polyp nor bleeding. Two resolution clips were applied to the polypectomy site with good deployment and good hemostasis. The scope was then slowly withdrawn assessing all mucosal surfaces carefully. Preparation was excellent. In the transverse colon were 2 approximately 8 mm polyps, which were each removed by hot snare polypectomy, recovered by suction, and placed in the same jar. I did not visualize any other polyps, colitis, nor angiodysplasia. There was a mild amount of sigmoid diverticulosis. In the rectum, scope was retroflexed visualizing internal hemorrhoids, but no other pathology. The rectal mucosa appeared normal. The scope was straightened and withdrawn the patient. She tolerated the procedure well and was returned to the recovery area in stable condition. IMPRESSION: 1. Colon polyps. 2. Diverticulosis. 3. Internal hemorrhoids. PLAN: The results of the pathology will be checked. Given these findings, in particular that of the large polyp, I would recommend a repeat colonoscopy within 1-2 years for further screening and surveillance. She was advised not to use any aspirin and NSAIDs for at least 1 week. She will otherwise see me on a p.r.n. basis. MD EROS Dockery/LULU / [id number] MTDD
== END 2023-10-13 13:09 | disposition home or self-care (01) ==
PROVIDERS: PCP Internal Medicine Endocrinology, Diabetes & Metabolism; Visit Provider Internal Medicine
PROC: 0DJD8ZZ Inspection of Lower Intestinal Tract, Via Natural or Artificial Opening Endoscopic (ICD-10-PCS; CPT 45378; principal; 2023-10-13 11:30)
DX: D12.0 Benign neoplasm of cecum (principal); D12.2 Benign neoplasm of ascending colon; D12.3 Benign neoplasm of transverse colon; D12.5 Benign neoplasm of sigmoid colon; K57.30 Diverticulosis of large intestine without perforation or abscess without bleeding; K64.8 Other hemorrhoids; Z86.010 Personal history of colon polyps; Z80.0 Family history of malignant neoplasm of digestive organs; K62.5 Hemorrhage of anus and rectum; I10 Essential (primary) hypertension; E78.5 Hyperlipidemia, unspecified; J44.9 Chronic obstructive pulmonary disease, unspecified; I25.2 Old myocardial infarction; Z99.81 Dependence on supplemental oxygen
CPT/HCPCS: 45385; 45380; 88305; J2704

== ENCOUNTER 2023-12-23 12:58 | Outpatient (AMB) | payer OTHER, SELFPAY ==
[2023-05-07 07:21] VITALS: BMI 22.6
[2023-12-23 13:22] VITALS: BP 138/64; PULSE 88; O2SAT 96; BMI 22.7
--- NOTE | 2023-12-23 13:22 | MHC.OFFVIS ---
Intake Vital Signs 12/23/23 13:22 Height 5 ft 5 in Weight 136 lb 10.986 oz BMI 22.7 BP 138/64 Blood Pressure Location Lt brachial Position Sitting Pulse 88 Pulse Source Doppler Pulse Oximetry (%) 96 Oxygen Delivery Method Room Air Intake Visit Reasons: COPD Allergies meperidine [From DEMEROL] Allergy (Severe, Verified 09/29/23 14:02) NAUSEA & VOMITING,SWELLING morphine [MORPHINE] Allergy (Mild, Verified 09/29/23 14:02) NAUSEA & VOMITING, SWELLING HPI COPD HPI Details 63-year-old lady, recent 35+ pack-year smoker, followed for severe to very severe supplemental oxygen 2-3L dependent COPD and pulmonary nodules.? She has been using BrezTri, theophylline, and albuterol MDI.? She denies recent exacerbations. Patient would like to restart pulmonary rehab. She also has been using lorazepam twice a day for anxiety to reduce hyperventilation and air trapping. [facility] Medical History High cholesterol HTN (hypertension) Myocardial infarct COPD (chronic obstructive pulmonary disease) Surgical History Hx of cataract extraction History of lung surgery Hx of heart artery stent Hx of excision of mass History of nasal surgery H/O colonoscopy History of esophagogastroduodenoscopy (EGD) H/O: hysterectomy Hx of section Social History Household Members: Spouse and Significant Other Household Members Other:: Patient Tobacco Use Status: Current everyday Tobacco user Cigarettes Per Day: 7 Years Smoked: 35+ Second Hand Smoke Exposure: No Review of Systems Const Denies daytime sleepiness, Denies excessive sweating, Denies fatigue, Denies fever(s), Denies lethargy, Denies malaise, Denies night sweats, Denies snoring and Denies weight loss Eyes Denies blurry vision and Denies itchy eyes ENT Denies nasal congestion, Denies post nasal drip, Denies sinus pain, Denies sinus pressure and Denies other ( Thrush) Card Denies chest pain, Denies pedal edema, Denies dyspnea, Denies orthopnea and Denies paroxysmal nocturnal dyspnea Resp Denies cough, Denies hemoptysis, Denies excessive phlegm production, Denies dyspnea, Denies snoring and Denies wheezing GI Denies abdominal pain and Denies heartburn Musc Denies myalgias, Denies arthralgias and Denies joint swelling Skin/Breast Denies rash Neuro Denies memory loss and Denies seizure-like activity Psych Denies abnormal sleep pattern, Denies anxiety and Denies memory loss Endo Denies excessive sweating, Denies fatigue and Denies heat intolerance Anders/Lymph Denies easy bruising Aller/Immun Denies itchy eyes, Denies seasonal rhinorrhea and Denies wheezing Physical Exam Vital Signs: Last Vital Signs Pulse 88 12/23/23 13:22 BP 138/64 12/23/23 13:22 Pulse Ox 96 12/23/23 13:22 Oxygen Delivery Method Room Air 12/23/23 13:22 BMI result Body Mass Index 22.7 Const General: no acute distress and alert Nutritional Appearance: not obese Orientation/consciousness: Other orientation findings ( oriented) HEENT Head: Yes atraumatic Eyes General: appearance normal, both eyes and all related structures Sclerae: sclerae normal EOM: EOMs intact bilaterally Neck Neck: Yes supple Lymphatic: no lymphadenopathy noted Resp Effort & Inspection: normal respiratory effort and no use of accessory muscles Auscultation: clear to auscultation bilaterally Cardio Rate: regular rate Rhythm: regular rhythm Heart sounds: no gallops, no murmurs and no rubs Skin General skin exam: other ( warm) Extrem General: No clubbing, No cyanosis and No edema Assessment & Plan Assessment & Plan (1) COPD (chronic obstructive pulmonary disease): Code(s): J44.9 - Chronic obstructive pulmonary disease, unspecified Plan: Reasonably well controlled on current regimen of BrezTri/Symbicort, duo nebs, albuterol MDI, Singulair, theophylline. Patient also has been using Ativan 1 mg twice a day for anxiety to prevent hyperventilation and air trapping associated dyspnea. (2) Pulmonary nodules: Code(s): R91.8 - Other nonspecific abnormal finding of lung field Plan: Results of CT chest reviewed, no worrisome nodules at this time. Continue with yearly screening. (3) Supplemental oxygen dependent: Code(s): Z99.81 - Dependence on supplemental oxygen Plan: Continue supplemental oxygen to maintain O2 saturation of 88-92%. Coding Level of Care Code Est Pt Level 4 (78379) Diagnoses COPD (chronic obstructive pulmonary disease) J44.9 Pulmonary nodules R91.8 Supplemental oxygen dependent Z99.81
== END 2023-12-23 13:47 | disposition home or self-care (01) ==
PROVIDERS: PCP Internal Medicine Endocrinology, Diabetes & Metabolism; Visit Provider Internal Medicine Pulmonary Disease
DX: J44.9 Chronic obstructive pulmonary disease, unspecified (principal); R91.8 Other nonspecific abnormal finding of lung field; Z99.81 Dependence on supplemental oxygen
CPT/HCPCS: 99214

== ENCOUNTER → 2023-12-23 12:58 | Outpatient (BNVA) | payer OTHER, SELFPAY ==
[2023-05-07 07:21] VITALS: BMI 22.6
== END ==
PROVIDERS: PCP Internal Medicine Endocrinology, Diabetes & Metabolism; Visit Provider Internal Medicine Pulmonary Disease
DX: J44.9 Chronic obstructive pulmonary disease, unspecified (principal); R91.8 Other nonspecific abnormal finding of lung field; Z99.81 Dependence on supplemental oxygen
CPT/HCPCS: 99212

== ENCOUNTER 2024-03-26 07:03 | Outpatient (REF) | payer OTHER, SELFPAY ==
[2023-05-07 07:21] VITALS: BMI 22.6
[2024-03-26 07:13] LABS: MANUAL DIFF FLAG NO
[2024-03-26 07:38] LABS: Basophils Absolute Auto 0.1 X10*3/uL (0.0-0.2); Basophils Percent Auto 0.6 % (0-2); Eosinophils Absolute Auto 0.1 X10*3/uL (0.0-0.4); Eosinophils Percent Auto 0.9 % (0-4); Hematocrit 46.2 % (37.0-47.0); Hemoglobin 15.8 g/dl (12.0-16.0); Imm Gran Pct Auto 0.8 % (0.0-0.4); Lymphocytes Absolute Auto 3.5 X10*3/uL (1.2-4.9); Lymphocytes Percent Auto 28.1 % (20-40); Mean Corpuscular HGB Conc 34.2 g/dl (31.0-35.0); Mean Corpuscular Hemoglobin 34.3 pg (27.0-33.0); Mean Corpuscular Volume 100.2 fL (80.0-98.0); Mean Platelet Volume 8.3 fL (9.4-12.3); Monocytes Absolute Auto 0.8 X10*3/uL (0.1-1.2); Monocytes Percent Auto 6.5 % (2-11); Neutrophils Absolute Auto 7.8 x10*3/uL (2.0-8.3); Neutrophils Percent Auto 63.1 % (45-73); Platelet Count 270 X10*3/uL (160-400); Red Blood Count 4.61 X10*6/uL (4.20-5.50); Red Cell Distribution Width 12.4 % (11.0-16.0); White Blood Count 12.4 X10*3/uL (4.8-10.8)
[2024-03-26 08:12] LABS: Alanine Aminotransferase 16 U/L (0-31); Albumin Level 4.4 g/dL (3.5-5.0); Alkaline Phosphatase 98 U/L (39-117); Anion Gap 14 (12-20); Aspartate Amino Transferase 19 U/L (5-31); Bilirubin Total 0.3 mg/dL (0.0-1.0); Blood Urea Nitrogen 9 mg/dL (9-16); Calcium 10.1 mg/dL (8.4-10.2); Carbon Dioxide 28 mmol/L (22-29); Chloride 96 mmol/L (96-108); Cholesterol 183 mg/dL (<200); Estimated Glomerular Filt Rate > 60; Glucose Random 106 mg/dL (60-115); HDL Cholesterol 72 mg/dL (>40); LDL Cholesterol Calculated 77 mg/dL (<100); Potassium 4.7 mmol/L (3.3-5.1); Sodium 133 mmol/L (135-145); Total Protein 7.7 g/dL (6.5-8.0); Triglycerides 172 mg/dL (<150)
[2024-03-26 08:20] LABS: Vitamin D 25-OH Total 16.5 ng/mL (>30)
== END 2024-03-26 07:04 | disposition home or self-care (01) ==
LOC: HO.LAB 07:03
PROVIDERS: PCP Internal Medicine; Visit Provider Internal Medicine
DX: Z00.00 Encounter for general adult medical examination without abnormal findings (principal); E78.00 Pure hypercholesterolemia, unspecified; I10 Essential (primary) hypertension; J44.9 Chronic obstructive pulmonary disease, unspecified; M81.8 Other osteoporosis without current pathological fracture; R09.02 Hypoxemia; Z86.010 Personal history of colon polyps
CPT/HCPCS: 36415; 80053; 80061; 82306; 85025

== ENCOUNTER 2024-04-12 09:55 | Emergency (ER) | payer OTHER, SELFPAY ==
[2023-05-07 07:21] VITALS: BMI 22.6
--- NOTE | ~2024-04-12 | CT_ITS ---
EXAMINATION: CT ABDOMEN AND PELVIS WITH AND WITHOUT CONTRAST: CT GI BLEEDING STUDY CLINICAL INFORMATION: Reason for Exam gi bleeding. COMPARISON: No pertinent prior studies are available for comparison. TECHNIQUE: Multidetector volumetric imaging was performed from the lung bases to the pubic symphysis before and after the administration of: Intravenous contrast: 100 mL Omnipaque 350 2 sets of post contrast imaging were obtained one during the arterial phase and another after a 2 minute delay to look for extravasation into bowel lumen. No contrast reaction reported MIP coronal, sagittal and coronal reformatted images were obtained on the technologist workstation. This CT examination was performed using dose optimization techniques as appropriate, variously including the following: *Automated exposure control *Adjustment of mA and/or kV according to patient size (this includes techniques or standardized protocols for targeted exams where dose is matched to indication/reason for exam; i.e. extremities or head) *Use of iterative reconstruction technique Total exam dose-length product 887 mGy-cm FINDINGS: There is dense contrast seen on the noncontrast images throughout the colon most prominent in the right colon which decreases utility for detecting extravasation. STOMACH: No abnormal wall thickening or mass. No intraluminal contrast accumulation to suggest hemorrhage. SMALL BOWEL: No abnormal wall thickening or dilation. No intraluminal contrast accumulation to suggest hemorrhage. COLON: No new accumulation intraluminal contrast accumulation to suggest active hemorrhage. No colonic wall thickening or pericolonic inflammatory changes. Diverticulosis without evidence of diverticulitis. Normal appendix. LUNG BASES: Bibasilar atelectasis/scarring is seen. No suspicious lung masses or infiltrates. PLEURA: No pleural effusion. LIVER, GALLBLADDER, AND BILIARY TREE: The liver is normal in size, shape, and attenuation. No focal hepatic lesion or biliary ductal dilatation is present. At is post cholecystectomy. PANCREAS: Normal; no mass or surrounding fluid. SPLEEN: Normal size. No focal lesion. ADRENAL GLANDS: Normal; no mass. KIDNEYS AND URETERS: The kidneys are normal in size, shape, and attenuation. No hydronephrosis, hydroureter, or calculi. A few tiny bilateral benign Bosniak class I renal cysts are noted which require no additional imaging or follow-up. No solid renal masses are seen. ABDOMINAL WALL: No hernia seen. LYMPHOVASCULAR STRUCTURES: No lymphadenopathy. Calcific atherosclerotic changes are present in the aorta and iliofemoral vessels. There is no evidence of an abdominal aortic aneurysm. . BLADDER: No focal mass or wall thickening seen. There is mixing of contrast media seen in the bladder which is not fully evaluated. No bladder calculi. PELVIC VISCERA: The uterus is not seen. An abnormal adnexal mass is not detected. No free intraperitoneal fluid is present. OSSEOUS STRUCTURES: No acute or suspicious osseous abnormality. CT/CT gi bleed abd pel wo/w IVcon IMPRESSION: 1. No evidence of active GI bleeding. Study is limited because of high density material within bowel on the precontrast images. If the patient is hemodynamically unstable, tagged radionuclide blood cell study may be useful. 2. Incidental note made of cholecystectomy, diverticulosis without diverticulitis and hysterectomy.
[2024-04-12 10:04] VITALS: BP 140/90; PULSE 116; RESP 18; TEMP 36.8; O2SAT 97; BMI 22.5
[2024-04-12 10:26] LABS: Basophils Absolute Auto 0.1 X10*3/uL (0.0-0.2); Basophils Percent Auto 0.4 % (0-2); Eosinophils Absolute Auto 0.2 X10*3/uL (0.0-0.4); Eosinophils Percent Auto 0.7 % (0-4); Hematocrit 47.3 % (37.0-47.0); Hemoglobin 16.6 g/dl (12.0-16.0); Imm Gran Abs Auto 0.17 X10*3/uL (0.00-0.03); Imm Gran Pct Auto 0.7 % (0.0-0.4); Lymphocytes Absolute Auto 2.5 X10*3/uL (1.2-4.9); Lymphocytes Percent Auto 10.8 % (20-40); MANUAL DIFF FLAG SCAN; Mean Corpuscular HGB Conc 35.1 g/dl (31.0-35.0); Mean Corpuscular Hemoglobin 34.2 pg (27.0-33.0); Mean Corpuscular Volume 97.5 fL (80.0-98.0); Mean Platelet Volume 8.2 fL (9.4-12.3); Monocytes Absolute Auto 1.6 X10*3/uL (0.1-1.2); Neutrophils Absolute Auto 18.5 x10*3/uL (2.0-8.3); Neutrophils Percent Auto 80.4 % (45-73); Platelet Count 222 X10*3/uL (160-400); Red Blood Count 4.85 X10*6/uL (4.20-5.50); SCAN SMEAR FLAG 1; White Blood Count 23.1 X10*3/uL (4.8-10.8)
[2024-04-12 10:28] LABS: Red Cell Distribution Width 12.4 % (11.0-16.0)
--- NOTE | 2024-04-12 10:28 | ED_ITS ---
HPI - General Adult General Chief complaint: GI Bleed Stated complaint: Rectal bleeding/pain Time Seen by Provider: 04/12/24 10:25 Source: patient Mode of arrival: ambulatory Limitations: no limitations History of Present Illness ED Provider: Gab GAMINO Related Data Home Medications ?Medication ?Instructions ?Recorded ?Confirmed amlodipine 5 mg tablet 5 mg PO DAILY blood pressure 07/28/20 10/09/23 evolocumab 140 mg/mL subcutaneous 140 mg subcut Q2W 07/28/20 10/09/23 pen injector levalbuterol HCl 1.25 mg/3 mL 1.25 mg inhalation Q4H PRN 07/28/20 10/09/23 solution for nebulization Shortness Of Breath Or Wheezing losartan 100 mg tablet 100 mg PO DAILY 07/28/20 10/09/23 metoprolol tartrate 100 mg tablet 100 mg PO BID 07/28/20 10/09/23 clonidine HCl 0.2 mg tablet 0.2 mg PO BID 07/30/21 10/09/23 gabapentin 300 mg capsule 300 mg PO TID 07/30/21 10/09/23 omeprazole 20 mg capsule,delayed 20 mg PO DAILY 07/30/21 10/09/23 release Previous Rx's ?Medication ?Instructions ?Recorded montelukast 10 mg tablet 10 mg PO BEDTIME #90 tabs 12/26/21 albuterol sulfate 2.5 mg/3 mL 2.5 mg (3 mL) inhalation Q4H PRN 08/30/22 (0.083 %) solution for nebulization for wheezing #150 mL benzonatate 200 mg capsule 200 mg PO BID PRN cough 30 days 02/05/23 #60 caps nirmatrelvir 300 mg (150 mg See Rx Instructions PO .COMPLEX 02/09/23 x2)-ritonavir 100 mg tablet,dose #30 ea pack (Paxlovid) guaifenesin 600 mg tablet, 600 mg PO Q12H #60 tabs 09/11/23 extended release 12 hr lorazepam 1 mg tablet (Ativan) 1 mg PO BID PRN anxiety 30 days 01/07/24 #60 tabs budesonide 160 mcg-glycopyr 9 2 inh inhalation BID 30 days #1 ea 01/14/24 mcg-formot 4.8 mcg/actuation HFA inhaler (Breztri Aerosphere) budesonide-formoterol HFA 160 2 puff PO BID #10.2 ea 03/08/24 mcg-4.5 mcg/actuation aerosol inhaler (Symbicort) levofloxacin 500 mg tablet 500 mg PO DAILY #7 tabs 04/02/24 prednisone 20 mg tablet 40 mg (2 x 20 mg) PO DAILY #10 tabs 04/02/24 albuterol sulfate 90 mcg/actuation 2 puff inhalation Q4-6H PRN for 04/07/24 aerosol inhaler wheezing #20.1 ea theophylline 200 mg 200 mg PO DAILY #90 caps 04/07/24 capsule,extended release 24 hr (Demond-24) dicyclomine 10 mg capsule 10 mg PO QID PRN abdominal pain 04/12/24 #30 caps ondansetron HCl 4 mg tablet 4 mg PO Q8H PRN nausea and 04/12/24 vomiting #14 tabs Allergies Allergy/AdvReac Type Severity Reaction Status Date / Time meperidine [From DEMEROL] Allergy Severe NAUSEA & Verified 04/12/24 10:09 VOMITING,SWELLING morphine [MORPHINE] Allergy Mild NAUSEA & Verified 04/12/24 10:09 VOMITING, SWELLING Review of Systems 2 Review of Systems: Yes all other systems are reviewed and are negative PMFSH Past Medical History Attestation statement: The following information was validated with the patient. Source: old records reviewed and nursing notes reviewed Medical History High cholesterol HTN (hypertension) Myocardial infarct COPD (chronic obstructive pulmonary disease) Surgical History Hx of cataract extraction History of lung surgery Hx of heart artery stent Hx of excision of mass History of nasal surgery H/O colonoscopy History of esophagogastroduodenoscopy (EGD) H/O: hysterectomy Hx of section Social History Social History Household Members: Spouse and Significant Other Household Members Other:: Patient Tobacco Use Status: Current everyday Tobacco user Cigarettes Per Day: 7 Years Smoked: 35+ Smoked in Last 30 Days: Yes Second Hand Smoke Exposure: No Use of substances other than those prescribed or required for medical reasons: No Advance Directives: No Advance Directives Information Provided: Yes Do you have a plan to hurt others: No Plan Patient : No Physical Exam ED Vital Signs: Vital Signs - 24 hr 04/12/24 10:04 04/12/24 11:43 04/12/24 14:21 Temperature 98.2 F 98.2 F 98.2 F Pulse Rate 116 H 112 H 111 H Respiratory Rate 18 22 H 15 Blood Pressure 140/90 H 147/79 H 123/64 Pulse Oximetry 97 96 95 Oxygen Delivery Method Nasal Cannula Room Air Nasal Cannula Oxygen Flow Rate 2 04/12/24 15:43 Temperature 97.8 F Pulse Rate 115 H Respiratory Rate 16 Blood Pressure 115/59 L Pulse Oximetry 86 L Oxygen Delivery Method Nasal Cannula Oxygen Flow Rate 2 BMI result Body Mass Index 22.5 slightly tachy Course Reevaluation(s) Reevaluation #1: CBC with leukocytosis 23.1 and slight left shift. Stable H&H. Chemistry unremarkable. Normal lactic acid. Time: 11:00 Reevaluation #2: Repeat CBC with a white blood cell count of 17.2, patient is still in significant pain requiring Dilaudid. I did discuss this case with GI who recommended the 2nd CBC, state as long as this is stable in hemodynamic stability is noted patient can be discharged home. I am however concerned about continuing left lower quadrant abdominal pain that is severe, history and physical exam not consistent with dissection. He recommends dicyclomine now. I also reached out to general surgeon Dr. Ortega to evaluate patient at the bedside due to severe LLQ Abd pain Time: 15:23 Reevaluation #3: Surgery evaluated patient, do not think that this is a surgical abdomen. Patient comfortably resting on the stretcher at this time. Improvement with dicyclomine and another dose of Dilaudid. Patient tolerating p.o.. Patient has not had any large episodes of rectal bleeding. She is hemodynamically stable much more comfortable appearing. Both GI and surgery feels the patient can be discharged. Patient to be discharged with dicyclomine and Zofran. Educated patient on diagnosis and treatment plan, answered all question, patient verbalizes understanding. At this time patient will be discharged home, advised to return with new or worsening symptoms. Educated on worrisome signs and symptoms and when to return. At this time I feel comfortable discharge home. Time: 15:39 Additional Reevaluation(s): CXR and viral test ordered patient wants to leave. She understands why we ordered them and feels like she doesnt need them. Patient has been 95-96% on home O2 her entire visit Plan dc patient refusing viral test and CXR no cough or crackles on exam low suspicion for ARDS, pna, pe Medications Administered Discontinued Medications Generic Name Dose Route Start Last Admin Trade Name Freq PRN Reason Stop Dose Admin Dicyclomine HCl 20 mg 04/12/24 15:14 04/12/24 15:25 Dicyclomine Hcl 10 Mg Capsule PO 04/12/24 15:15 20 mg ONCE ONE Administration Hydromorphone HCl 1 mg 04/12/24 11:49 04/12/24 11:58 Hydromorphone Hcl 1 Mg/Ml Syringe IVPUSH 04/12/24 11:50 1 mg ONCE ONE Administration Protocol Hydromorphone HCl 1 mg 04/12/24 15:01 04/12/24 15:17 Hydromorphone Hcl 1 Mg/Ml Syringe IVPUSH 04/12/24 15:02 1 mg ONCE ONE Administration Protocol Sodium Chloride 1,837.05 mls @ 1,837.05 mls/hr 04/12/24 10:31 04/12/24 13:20 Ns 30 ml/kg infuse over 1 hr (1837.05 ml) 04/12/24 11:30 Infused IV Infusion .Q1H STA Ceftriaxone Sodium 1 gm/ 50 mls @ 100 mls/hr 04/12/24 10:31 04/12/24 11:58 Sodium Chloride IV 04/12/24 11:00 Infused ONCE ONE Infusion Iohexol 85 ml 04/12/24 11:27 04/12/24 11:27 Iohexol 350 Mg/Ml 100 Ml Infus..Btl IV 04/12/24 11:28 85 ml ONCE ONE Administration Medical Decision Making Medical Decision Making MDM Narrative: 1030 Lab Data 04/12/24 14:37 04/12/24 10:19 Labs: Lab Results 04/12/24 04/12/24 04/12/24 Range/Units 10:19 10:40 11:59 WBC 23.1 H (4.8-10.8) X10*3/uL RBC 4.85 (4.20-5.50) X10*6/uL Hgb 16.6 H (12.0-16.0) g/dl Hct 47.3 H (37.0-47.0) % MCV 97.5 (80.0-98.0) fL MCH 34.2 H (27.0-33.0) pg MCHC 35.1 H (31.0-35.0) g/dl RDW 12.4 (11.0-16.0) % Plt Count 222 (160-400) X10*3/uL MPV 8.2 L (9.4-12.3) fL Immature Gran % (Auto) 0.7 H (0.0-0.4) % Neut % (Auto) 80.4 H (45-73) % Lymph % (Auto) 10.8 L (20-40) % [place] % (Auto) 7.0 (2-11) % Eos % (Auto) 0.7 (0-4) % Baso % (Auto) 0.4 (0-2) % Lymph # (Auto) 2.5 (1.2-4.9) X10*3/uL [place] # (Auto) 1.6 H (0.1-1.2) X10*3/uL Eos # (Auto) 0.2 (0.0-0.4) X10*3/uL Baso # (Auto) 0.1 (0.0-0.2) X10*3/uL Abs Immat Gran (auto) 0.17 H (0.00-0.03) X10*3/uL Absolute Neuts (auto) 18.5 H (2.0-8.3) x10*3/uL Absolute Nucleated RBC 0.000 (0.0-0.012) X10*3/uL Nucleated RBC % (auto) 0.0 (0.0-0.2) /100WBC Smear Tech's Comments VERIFIED Sodium 136 (135-145) mmol/L Potassium 3.9 (3.3-5.1) mmol/L Chloride 99 (96-108) mmol/L Carbon Dioxide 24 (22-29) mmol/L Anion Gap 17 (12-20) BUN 7 L (9-16) mg/dL Creatinine 0.74 (0.5-1.4) mg/dL Estim Creat Clear Calc 69.1 Estimated GFR > 60 Random Glucose 133 H (60-115) mg/dL Lactic Acid 1.2 1.0 (0.5-2.0) mmol/L Calcium 10.2 (8.4-10.2) mg/dL Total Bilirubin 0.5 (0.0-1.0) mg/dL AST 14 (5-31) U/L ALT 10 (0-31) U/L Alkaline Phosphatase 102 (39-117) U/L Total Protein 7.3 (6.5-8.0) g/dL Albumin 4.1 (3.5-5.0) g/dL Urine Color Urine Appearance Urine pH (5.0-9.0) Ur Specific [place] (1.005-1.025) Urine Protein (Neg-Trace) mg/dL Urine Glucose (UA) (Negative) mg/dL Urine Ketones (Negative) mg/dL Urine Blood (Negative) Urine Nitrite (Negative) Ur Leukocyte Esterase (Negative) Stool Occult Blood POSITIVE (NEGATIVE) Influenza Type A (PCR) NEGATIVE (Negative) Influenza Type B (PCR) NEGATIVE (Negative) RSV RNA Qual (PCR) NEGATIVE (Negative) SARS-CoV-2 RNA (RT-PCR) NEGATIVE (Negative) 04/12/24 04/12/24 Range/Units 14:37 15:04 WBC 17.2 H (4.8-10.8) X10*3/uL RBC 4.43 (4.20-5.50) X10*6/uL Hgb 15.3 (12.0-16.0) g/dl Hct 44.0 (37.0-47.0) % MCV 99.3 H (80.0-98.0) fL MCH 34.5 H (27.0-33.0) pg MCHC 34.8 (31.0-35.0) g/dl RDW 12.4 (11.0-16.0) % Plt Count 184 (160-400) X10*3/uL MPV 8.2 L (9.4-12.3) fL Immature Gran % (Auto) 0.7 H (0.0-0.4) % Neut % (Auto) 79.3 H (45-73) % Lymph % (Auto) 13.0 L (20-40) % [place] % (Auto) 6.2 (2-11) % Eos % (Auto) 0.5 (0-4) % Baso % (Auto) 0.3 (0-2) % Lymph # (Auto) 2.2 (1.2-4.9) X10*3/uL [place] # (Auto) 1.1 (0.1-1.2) X10*3/uL Eos # (Auto) 0.1 (0.0-0.4) X10*3/uL Baso # (Auto) 0.1 (0.0-0.2) X10*3/uL Abs Immat Gran (auto) 0.12 H (0.00-0.03) X10*3/uL Absolute Neuts (auto) 13.6 H (2.0-8.3) x10*3/uL Absolute Nucleated RBC 0.000 (0.0-0.012) X10*3/uL Nucleated RBC % (auto) 0.0 (0.0-0.2) /100WBC Smear Tech's Comments Sodium (135-145) mmol/L Potassium (3.3-5.1) mmol/L Chloride (96-108) mmol/L Carbon Dioxide (22-29) mmol/L Anion Gap (12-20) BUN (9-16) mg/dL Creatinine (0.5-1.4) mg/dL Estim Creat Clear Calc Estimated GFR Random Glucose (60-115) mg/dL Lactic Acid (0.5-2.0) mmol/L Calcium (8.4-10.2) mg/dL Total Bilirubin (0.0-1.0) mg/dL AST (5-31) U/L ALT (0-31) U/L Alkaline Phosphatase (39-117) U/L Total Protein (6.5-8.0) g/dL Albumin (3.5-5.0) g/dL Urine Color Yellow Urine Appearance Clear Urine pH 7.0 (5.0-9.0) Ur Specific [place] 1.015 (1.005-1.025) Urine Protein Negative (Neg-Trace) mg/dL Urine Glucose (UA) Negative (Negative) mg/dL Urine Ketones Negative (Negative) mg/dL Urine Blood Negative (Negative) Urine Nitrite Negative (Negative) Ur Leukocyte Esterase Negative (Negative) Stool Occult Blood (NEGATIVE) Influenza Type A (PCR) (Negative) Influenza Type B (PCR) (Negative) RSV RNA Qual (PCR) (Negative) SARS-CoV-2 RNA (RT-PCR) (Negative) Critical Care Time Critical Care Time Critical Care Time: Yes Total Critical Care Time: 45 Attestation: I attest to this time spent taking care of the patient, obtaining history, physical, reviewing labs, imaging, speaking to my attending, specialist or hospitalist. Discharge Plan Discharge Clinical Impression: Acute lower GI bleeding, Abdominal pain, LLQ Patient Disposition: Home, Self-Care Instructions: Abdominal Pain (ED) Additional Instructions: Take your medications as prescribed. If you were prescribed antibiotics today, it is important that you take your medication to their entirety, do not skip any doses, do not finish them early. Follow-up with your primary care provider this week. Return to the emergency department with new or worsening symptoms. Such as fevers, chills, chest pain, shortness of breath, nausea, vomiting, dizziness, headache, vision changes, lethargy, worsening rectal bleeding In case of emergency call 911 CT/CT gi bleed abd pel wo/w IVcon IMPRESSION: 1. No evidence of active GI bleeding. Study is limited because of high density material within bowel on the precontrast images. If the patient is hemodynamically unstable, tagged radionuclide blood cell study may be useful. 2. Incidental note made of cholecystectomy, diverticulosis without diverticulitis and hysterectomy. Prescriptions: New dicyclomine 10 mg capsule 10 mg PO QID PRN (Reason: abdominal pain) Qty: 30 0RF ondansetron HCl 4 mg tablet 4 mg PO Q8H PRN (Reason: nausea and vomiting) Qty: 14 0RF No Action montelukast 10 mg tablet 10 mg PO BEDTIME Qty: 90 2RF albuterol sulfate 2.5 mg /3 mL (0.083 %) solution for nebulization 2.5 mg inhalation Q4H PRN (Reason: for wheezing) Qty: 150 0RF benzonatate 200 mg capsule 200 mg PO BID PRN (Reason: cough) 30 Days Qty: 60 0RF Paxlovid 300 mg (150 mg x 2)-100 mg tablets,dose pack See Rx Instructions PO .COMPLEX Qty: 30 0RF Rx Instructions: take TWO 150 mg tablets of nirmatrelvir with ONE 100 mg tablet of ritonavir twice daily for 5 days PO lorazepam [Ativan] 1 mg tablet 1 mg PO BID PRN (Reason: anxiety) 30 Days Qty: 60 3RF Breztri Aerosphere 160-9-4.8 mcg/actuation HFA aerosol inhaler 2 inh inhalation BID 30 Days Qty: 1 6RF budesonide-formoterol [Symbicort] 160-4.5 mcg/actuation HFA aerosol inhaler 2 puff PO BID Qty: 10.2 6RF levofloxacin 500 mg tablet 500 mg PO DAILY Qty: 7 0RF prednisone 20 mg tablet 40 mg PO DAILY Qty: 10 0RF albuterol sulfate 90 mcg/actuation HFA aerosol inhaler 2 puff inhalation Q4-6H PRN (Reason: for wheezing) Qty: 20.1 1RF Demond-24 200 mg capsule,extended release 24hr 200 mg PO DAILY Qty: 90 1RF clonidine HCl 0.2 mg tablet 0.2 mg PO BID gabapentin 300 mg capsule 300 mg PO TID omeprazole 20 mg capsule,delayed release(DR/EC) 20 mg PO DAILY Repatha SureClick 140 mg/mL pen injector 140 mg subcut Q2W amlodipine 5 mg tablet 5 mg PO DAILY metoprolol tartrate 100 mg tablet 100 mg PO BID losartan 100 mg tablet 100 mg PO DAILY levalbuterol HCl 1.25 mg/3 mL solution for nebulization 1.25 mg inhalation Q4H PRN (Reason: Shortness Of Breath Or Wheezing) guaifenesin 600 mg tablet extended release 12hr 600 mg PO Q12H Qty: 60 0RF Referrals: [facility] [Provider Group] - 1 day Physician,Unknown J [Primary Care Provider] - 2 days Print Language: [place]
[2024-04-12 10:37] LABS: Lactic Acid 1.2 mmol/L (0.5-2.0)
[2024-04-12 10:41] LABS: Alanine Aminotransferase 10 U/L (0-31); Albumin Level 4.1 g/dL (3.5-5.0); Alkaline Phosphatase 102 U/L (39-117); Anion Gap 17 (12-20); Aspartate Amino Transferase 14 U/L (5-31); Bilirubin Total 0.5 mg/dL (0.0-1.0); Blood Urea Nitrogen 7 mg/dL (9-16); Calcium 10.2 mg/dL (8.4-10.2); Carbon Dioxide 24 mmol/L (22-29); Chloride 99 mmol/L (96-108); Creatinine Clr Calc Pharmacy 69.1; Estimated Glomerular Filt Rate > 60; Glucose Random 133 mg/dL (60-115); Potassium 3.9 mmol/L (3.3-5.1); Sodium 136 mmol/L (135-145); Total Protein 7.3 g/dL (6.5-8.0)
[2024-04-12 10:48] LABS: SLIDE REVIEW VERIFIED
[2024-04-12] MEDS: cefTRIAXone sodium 1 GM in 0.9 % Sodium Chloride 50 ML IV (11:13)
[2024-04-12] MEDS: 0.9 % Sodium Chloride 1,837.05 ML 1837.05 ML IV (11:14)
[2024-04-12 11:21] LABS: Influenza A PCR NEGATIVE (Negative); Influenza B PCR NEGATIVE (Negative); Resp Syncy Virus RNA Qual PCR NEGATIVE (Negative); SARS COV2 PCR INHOUSE NEGATIVE (Negative)
[2024-04-12] MEDS: iohexoL 350 MG/ML 100 ML INFUS..BTL 85 ML IV (11:27)
[2024-04-12 11:43] VITALS: BP 147/79; PULSE 112; RESP 22; TEMP 36.8; O2SAT 96
[2024-04-12] MEDS: HYDROmorphone HCl 1 MG/ML SYRINGE IVPUSH ×2 (11:58→15:17)
[2024-04-12 12:16] LABS: OBS Int Ctl Valid YES; OBS1 POSITIVE (NEGATIVE)
[2024-04-12 14:21] VITALS: BP 123/64; PULSE 111; RESP 15; TEMP 36.8; O2SAT 95
[2024-04-12 14:40] LABS: MANUAL DIFF FLAG NO
[2024-04-12 14:43] LABS: Basophils Absolute Auto 0.1 X10*3/uL (0.0-0.2); Basophils Percent Auto 0.3 % (0-2); Eosinophils Absolute Auto 0.1 X10*3/uL (0.0-0.4); Eosinophils Percent Auto 0.5 % (0-4); Hemoglobin 15.3 g/dl (12.0-16.0); Imm Gran Abs Auto 0.12 X10*3/uL (0.00-0.03); Imm Gran Pct Auto 0.7 % (0.0-0.4); Lymphocytes Absolute Auto 2.2 X10*3/uL (1.2-4.9); Mean Corpuscular HGB Conc 34.8 g/dl (31.0-35.0); Mean Corpuscular Hemoglobin 34.5 pg (27.0-33.0); Mean Corpuscular Volume 99.3 fL (80.0-98.0); Mean Platelet Volume 8.2 fL (9.4-12.3); Monocytes Absolute Auto 1.1 X10*3/uL (0.1-1.2); Monocytes Percent Auto 6.2 % (2-11); Neutrophils Absolute Auto 13.6 x10*3/uL (2.0-8.3); Neutrophils Percent Auto 79.3 % (45-73); Platelet Count 184 X10*3/uL (160-400); Red Blood Count 4.43 X10*6/uL (4.20-5.50); Red Cell Distribution Width 12.4 % (11.0-16.0); White Blood Count 17.2 X10*3/uL (4.8-10.8)
[2024-04-12 15:22] LABS: Appearance Urine Clear; Color Urine Yellow; Glucose Urine UA Negative (Negative); Leukocyte Esterase Urine Negative (Negative); Nitrite Urine Negative (Negative); Specific Gravity - Urine 1.015 (1.005-1.025); Urine Blood Negative (Negative); Urine Ketones Negative (Negative); Urine Protein Negative (Neg-Trace)
[2024-04-12] MEDS: Dicyclomine HCl 10 MG CAPSULE 20 MG PO (15:25)
[2024-04-12 15:43] VITALS: BP 115/59; PULSE 115; RESP 16; TEMP 36.6; O2SAT 86
[2024-04-12 15:52] VITALS: O2SAT 95
[2024-04-12 15:53] VITALS: BP 115/59; PULSE 115; RESP 16; TEMP 36.6; O2SAT 95
== END 2024-04-12 15:56 | disposition home or self-care (01) ==
PROVIDERS: Physician Assistant; Emergency Provider Emergency Medicine
DX: K92.2 Gastrointestinal hemorrhage, unspecified (principal); R10.32 Left lower quadrant pain; R11.2 Nausea with vomiting, unspecified; Z03.818 Encounter for observation for suspected exposure to other biological agents ruled out; Z79.899 Other long term (current) drug therapy
CPT/HCPCS: 0241U; 36415; 74178; 80053; 81003; 82272; 83605; 85025; 87040; 96361; 96365; 96375; 96376; 99284; 99285; J0696; J1170; Q9967

== ENCOUNTER 2024-04-14 13:37 | Outpatient (AMB) | payer OTHER, SELFPAY ==
[2023-05-07 07:21] VITALS: BMI 22.6
[2024-04-14 13:42] VITALS: BP 114/64; PULSE 116; O2SAT 95
--- NOTE | 2024-04-14 13:42 | MHC.OFFVIS ---
Vital Signs 04/14/24 13:42 Weight 131 lb 2.801 oz BP 114/64 Blood Pressure Location Rt brachial Position Sitting Pulse 116 H Pulse Source Doppler Pulse Oximetry (%) 95 Oxygen Delivery Method Nasal Cannula Oxygen Flow Rate 2 Intake Visit Reasons: COPD Allergies meperidine [From DEMEROL] Allergy (Severe, Verified 04/12/24 10:09) NAUSEA & VOMITING,SWELLING morphine [MORPHINE] Allergy (Mild, Verified 04/12/24 10:09) NAUSEA & VOMITING, SWELLING HPI HPI COPD: Details: 64-year-old lady, recent 35+ pack-year smoker, followed for severe to very severe supplemental oxygen 2-3L dependent COPD and pulmonary nodules.? She has been using BrezTri, theophylline, and albuterol MDI.? She denies recent exacerbations. She also has been using lorazepam twice a day for anxiety to reduce hyperventilation and air trapping. [facility] Medical History High cholesterol HTN (hypertension) Myocardial infarct COPD (chronic obstructive pulmonary disease) Surgical History Hx of cataract extraction History of lung surgery Hx of heart artery stent Hx of excision of mass History of nasal surgery H/O colonoscopy History of esophagogastroduodenoscopy (EGD) H/O: hysterectomy Hx of section Social History Household Members: Spouse and Significant Other Household Members Other:: Patient Tobacco Use Status: Current everyday Tobacco user Cigarettes Per Day: 7 Years Smoked: 35+ Second Hand Smoke Exposure: No Review of Systems Const Denies daytime sleepiness, Denies excessive sweating, Denies fatigue, Denies fever(s), Denies lethargy, Denies malaise, Denies night sweats, Denies snoring and Denies weight loss Eyes Denies blurry vision and Denies itchy eyes ENT Denies nasal congestion, Denies post nasal drip, Denies sinus pain, Denies sinus pressure and Denies other ( Thrush) Card Denies chest pain, Denies pedal edema, Denies dyspnea, Denies orthopnea and Denies paroxysmal nocturnal dyspnea Resp Denies cough, Denies hemoptysis, Denies excessive phlegm production, Denies dyspnea, Denies snoring and Denies wheezing GI Denies abdominal pain and Denies heartburn Musc Denies myalgias, Denies arthralgias and Denies joint swelling Skin/Breast Denies rash Neuro Denies memory loss and Denies seizure-like activity Psych Denies abnormal sleep pattern, Denies anxiety and Denies memory loss Endo Denies excessive sweating, Denies fatigue and Denies heat intolerance Anders/Lymph Denies easy bruising Aller/Immun Denies itchy eyes, Denies seasonal rhinorrhea and Denies wheezing Physical Exam Vital Signs: Last Vital Signs Pulse 116 H 04/14/24 13:42 BP 114/64 04/14/24 13:42 Pulse Ox 95 04/14/24 13:42 Oxygen Delivery Method Nasal Cannula 04/14/24 13:42 Oxygen Flow Rate 2 04/14/24 13:42 Const General: no acute distress and alert Nutritional Appearance: not obese Orientation/consciousness: Other orientation findings ( oriented) HEENT Head: Yes atraumatic Eyes General: appearance normal, both eyes and all related structures Sclerae: sclerae normal EOM: EOMs intact bilaterally Neck Neck: Yes supple Lymphatic: no lymphadenopathy noted Resp Effort & Inspection: normal respiratory effort and no use of accessory muscles Auscultation: clear to auscultation bilaterally Cardio Rate: regular rate Rhythm: regular rhythm Heart sounds: no gallops, no murmurs and no rubs Skin General skin exam: other ( warm) Extrem General: No clubbing, No cyanosis and No edema Assessment & Plan Assessment & Plan (1) COPD (chronic obstructive pulmonary disease): Code(s): J44.9 - Chronic obstructive pulmonary disease, unspecified Category: Medical Plan: Baseline reasonably controlled on current regimen of BrezTri, Symbicort, albuterol MDI/nebs, theophylline, and Ativan for air trapping. Continue current regimen. (2) Supplemental oxygen dependent: Code(s): Z99.81 - Dependence on supplemental oxygen Category: Medical Plan: Continue supplemental oxygen to maintain O2 saturation of 88-92%. Coding Level of Care Code Est Pt Level 4 (61070) Diagnoses COPD (chronic obstructive pulmonary disease) J44.9 Supplemental oxygen dependent Z99.81
== END 2024-04-14 14:18 | disposition home or self-care (01) ==
PROVIDERS: PCP Internal Medicine; Visit Provider Internal Medicine Pulmonary Disease
DX: J44.9 Chronic obstructive pulmonary disease, unspecified (principal); Z99.81 Dependence on supplemental oxygen
CPT/HCPCS: 99214

== ENCOUNTER → 2024-04-14 13:37 | Outpatient (BNVA) | payer OTHER, SELFPAY ==
[2023-05-07 07:21] VITALS: BMI 22.6
== END ==
PROVIDERS: PCP Internal Medicine; Visit Provider Internal Medicine Pulmonary Disease
DX: J44.9 Chronic obstructive pulmonary disease, unspecified (principal); Z99.81 Dependence on supplemental oxygen
CPT/HCPCS: 99212

== ENCOUNTER 2024-08-05 14:34 | Outpatient (REF) | payer MEDICAID, SELFPAY ==
[2023-05-07 07:21] VITALS: BMI 22.6
[2024-07-27 11:31] VITALS: BMI 22.6
== END 2024-08-05 14:35 | disposition home or self-care (01) ==
LOC: HO.CT 14:34
PROVIDERS: PCP Internal Medicine; Visit Provider Internal Medicine Pulmonary Disease
DX: Z12.2 Encounter for screening for malignant neoplasm of respiratory organs (principal); Z87.891 Personal history of nicotine dependence
CPT/HCPCS: 71271

== ENCOUNTER 2024-09-03 11:06 | Outpatient (REF) | payer MEDICAID, SELFPAY ==
[2024-07-27 11:31] VITALS: BMI 22.6
--- OUTSIDE RECORDS SUMMARY | 2024-09-03 11:08 | XMS_ITS ---
Author Organization [facility] Address [address] [place] [address] Care Team Providers Care User Experience Designer Name Role Phone Alfred Alfaro MD Primary Care Provider Dominic Omalley [phone] ALLERGIES Allergen (clinical drug ingredient) Drug/Non Drug [...] 06/17/2024 Encounters Encounter Location Date Provider Diagnosis [facility] [address] [place] [phone] 06/17/2024 Dominic Weems Irritable bowel syndrome with [...] Provider Name:Dominic Weems , 10/18/2024 11:30:00 AM, [address] [place] [address], [phone], Progress Notes * Examination Category Sub-Category Detail [...]
--- OUTSIDE RECORDS SUMMARY | 2024-09-03 11:09 | XMS_ITS | Patient Health Record ---
Author Organization [facility] Address [address] [facility] [address] [place] [address] Care Team Providers Care Engine Lathe Operator Name Role Phone Angelina BILLINGS, Alfred Primary Care Provider Dominic Omalley Unavailable [phone] ALLERGIES Allergen (clinical drug ingredient) Drug/Non Drug Allergy documented on EMR Reaction Allergy Type Onset Date Status morphine Morphine Sulfate Unknown Drug Allergy Active meperidine Demerol Unknown Drug Allergy Active Blueberries blueberries (uncoded) Unknown Allergy Active RESULTS Component Value Reference Range Notes Pathology Reviewed date:10/27/2023 07:24:54 AM Interpretation: Performing Lab:[facility], [address] [place] [phone] Notes/Report: REASON FOR REFERRAL Referring Provider First Name Socorro Referring Provider Last Name Gilbert Referring Provider Speciality Internal M edicine Referred Organization [facility] Referred Provider Dominic Weems Referred Address [address] [facility] [address] [place] [phone], Referred Provider Specialty Gastroentero logy General Notes Charo Ypa 024 04:03:46 PM EST > Call Dr. [...] Problem Colon cancer screening (Z12.11) Active confirmed 269926173 Problem Rectal bleeding (K62.5) Active confirmed 47988830 Problem History of adenomatous polyp of colon (Z86.010) Active confirmed 875049803 Problem Diverticulosis of large intestine without perforation or abscess without bleeding (K57.30) Active confirmed Diverticul ar disease of colon (284280079) Problem Dysphagia (R13.10) Active confirmed Dys phagia (42026777) Problem Family history of colon cancer (Z80.0) Active confirmed 592358569 Problem Rectal bleed (K62.5) Active confirmed 86017982 Problem Gastritis (K29.70) Active confirmed Gas tritis (1634927) Problem Irregular bowel habits (R19.8) Active confirmed 483447268 Problem Gastroesophageal reflux (K21.9) Active confirmed Esophageal reflux finding (481808577) Problem Diarrhea, unspecified type (R19.7) Active confirmed 90275978 Problem Irritable bowel syndrome with both constipation and diarrhea (K58.2) Active confirmed 79184974 Problem Gastroesophageal reflux disease, unspecified whether esophagitis present (K21.9) Active confirmed 741626213 Problem Esophageal dysphagia (R13.19) Active confirmed 99090307 VITAL SIGNS Blood pressure diastolic 00 mm Hg 06/17/2024 Height 64 in 06/17/2024 Blood pressure systolic 00 mm Hg 06/17/2024 Weight 135 lbs 06/17/2024 BMI 23.17 kg/m2 06/17/2024 Encounters Encounter Location Date Provider Diagnosis [facility] Out[facility] [address] [place] [phone] 10/13/2023 Dominic Weems Colon polyps K63.5 ; Hematochezia K92.1 ; Diverticulosis of large intestine without perforation or abscess without bleeding K57.30 and Other hemorrhoids K64.8 [facility] [address] [place] [address] 06/17/2024 Dominic Weems Irritable bowel syndrome with both constipation and diarrhea K58.2 ; History of adenomatous polyp of colon Z86.010 ; Family history of colon cancer Z80.0 and Colon cancer screening Z12.11 [facility] [address] [facility] [address] [place] [address] 10/14/2023 Dominic Weems [facility] [address] [place] [phone] 11/17/2023 Dominic Weems [facility] [address] [place] [address] [place] [phone] 2024 Dominic Weems ASSESSMENTS Encounter Date Diagnosis [...] Name:Dominic Weems , 10/18/2024 11:30:00 AM, [address] [facility] , [place], [place], [phone], Insurance Providers Payer Name Payer Address Payer Phone Subscriber Number Group Number Insured Name Patient Relationship to Insured Coverage Start Date Coverage End Date MEDICAID OF [employer] [address] [place] [phone] [id number] MINOO GOMEZ Self - patient is the insured MEDICAL (GENERAL) HISTORY Medical History History ICD Code COPD--wears oxygen for walking--sees Dr. Ivan at [facility] Hypertension [place] in 12/2013--had 1 stent placed---fine since Colonoscopies [...]
--- OUTSIDE RECORDS SUMMARY | 2024-09-03 11:09 | XMS_ITS ---
Author Organization [facility] Address [address] [place] [address] Care Team Providers Care Slitter Cut Off Operator Name Role Phone Angelina BILLINGS, Alfred Primary Care Provider Dominic Omalley Unavailable [phone] REASON FOR VISIT rectal bleeding and abd pain Encounters Encounter Location Date Provider Diagnosis [facility] [address] [place] [phone] 2024 Dominic Weems PLAN OF TREATMENT Next Appt Details Provider Name:Dominic Weems , 10/18/2024 11:30:00 AM, [address] [facility] , [place], [place], [phone],
--- OUTSIDE RECORDS SUMMARY | 2024-09-03 11:09 | XMS_ITS ---
Author Organization [facility] Address [address] [place] [address] Care Team Providers Care Sped Teacher Name Role Phone Angelina BILLINGS, Alfred Primary Care Provider Dominic Omalley Unavailable [phone] REASON FOR VISIT FYI only Encounters Encounter Location Date Provider Diagnosis [facility] [address] [facility] [address] [place] [phone] 11/17/2023 Dominic Weems PLAN OF TREATMENT Next Appt Details Provider Name:Dominic Weems , 10/18/2024 11:30:00 AM, [address] [facility] , [place], [place], [phone],
[2024-09-03 13:50] LABS: Alanine Aminotransferase 19 U/L (0-31); Albumin Level 4.2 g/dL (3.5-5.0); Alkaline Phosphatase 118 U/L (39-117); Anion Gap 14 (12-20); Aspartate Amino Transferase 25 U/L (5-31); Bilirubin Total 0.4 mg/dL (0.0-1.0); Blood Urea Nitrogen 12 mg/dL (9-16); Calcium 9.8 mg/dL (8.4-10.2); Carbon Dioxide 25 mmol/L (22-29); Chloride 99 mmol/L (96-108); Estimated Glomerular Filt Rate > 60; Glucose Random 91 mg/dL (60-115); Sodium 134 mmol/L (135-145); Total Protein 7.6 g/dL (6.5-8.0)
[2024-09-03 13:59] LABS: Thyroid Stimulating Hormone 1.53 uIU/mL (0.32-4.0); Vitamin D 25-OH Total 100.6 ng/mL (>30)
[2024-09-05 09:13] LABS: Theophylline 6.4
== END 2024-09-03 11:07 | disposition home or self-care (01) ==
LOC: HO.LAB 11:06
PROVIDERS: PCP Internal Medicine; Visit Provider Internal Medicine
DX: E55.9 Vitamin D deficiency, unspecified (principal); E78.00 Pure hypercholesterolemia, unspecified; E87.1 Hypo-osmolality and hyponatremia; I10 Essential (primary) hypertension; M81.8 Other osteoporosis without current pathological fracture; Z01.811 Encounter for preprocedural respiratory examination; J44.9 Chronic obstructive pulmonary disease, unspecified; Z72.0 Tobacco use; Z99.81 Dependence on supplemental oxygen
CPT/HCPCS: 36415; 80053; 80198; 82306; 84443; 99212

== ENCOUNTER 2024-09-03 11:32 | Outpatient (AMB) | payer MEDICAID, SELFPAY ==
[2023-05-07 07:21] VITALS: BMI 22.6
[2024-07-27 11:31] VITALS: BMI 22.6
[2024-09-03 11:33] VITALS: BP 106/62; PULSE 91; O2SAT 95; BMI 23.1
--- NOTE | 2024-09-03 11:33 | A.OFFVIS_ITS ---
Vital Signs 09/03/24 11:33 Height 5 ft 5 in Weight 138 lb 14.259 oz BMI 23.1 BP 106/62 Blood Pressure Location Lt brachial Position Sitting Pulse 91 Pulse Source Doppler Pulse Oximetry (%) 95 Oxygen Delivery Method Room Air Intake Visit Reasons: pre-op colonscopy Allergies meperidine [From DEMEROL] Allergy (Severe, Verified 04/12/24 10:09) NAUSEA & VOMITING,SWELLING morphine [MORPHINE] Allergy (Mild, Verified 04/12/24 10:09) NAUSEA & VOMITING, SWELLING HPI HPI pre-op colonscopy: Details: 64-year-old lady, recent 35+ pack-year smoker, followed for severe to very severe supplemental oxygen 2-3L dependent COPD and pulmonary nodules.? She has been using BrezTri, theophylline, and albuterol MDI.? She denies recent exacerbations. She also has been using lorazepam twice a day for anxiety to reduce hyperventilation and air trapping with good effect. Her follow-up lung cancer screening CT chest is pending. [facility] Medical History High cholesterol HTN (hypertension) Myocardial infarct COPD (chronic obstructive pulmonary disease) Surgical History Hx of cataract extraction History of lung surgery Hx of heart artery stent Hx of excision of mass History of nasal surgery H/O colonoscopy History of esophagogastroduodenoscopy (EGD) H/O: hysterectomy Hx of section Social History Household Members: Spouse and Significant Other Household Members Other:: Patient Tobacco Use Status: Current everyday Tobacco user Cigarettes Per Day: 7 Years Smoked: 35+ Second Hand Smoke Exposure: No Review of Systems Const Denies daytime sleepiness, Denies excessive sweating, Denies fatigue, Denies fever(s), Denies lethargy, Denies malaise, Denies night sweats, Denies snoring and Denies weight loss Eyes Denies blurry vision and Denies itchy eyes ENT Denies nasal congestion, Denies post nasal drip, Denies sinus pain, Denies sinus pressure and Denies other ( Thrush) Card Denies chest pain, Denies pedal edema, Denies dyspnea, Reports dyspnea on exertion (At baseline), Denies orthopnea and Denies paroxysmal nocturnal dyspnea Resp Denies cough, Denies hemoptysis, Denies excessive phlegm production, Denies dyspnea, Reports dyspnea on exertion (At baseline), Denies snoring and Denies wheezing GI Denies abdominal pain and Denies heartburn Musc Denies myalgias, Denies arthralgias and Denies joint swelling Skin/Breast Denies rash Neuro Denies memory loss and Denies seizure-like activity Psych Denies abnormal sleep pattern, Denies anxiety and Denies memory loss Endo Denies excessive sweating, Denies fatigue and Denies heat intolerance Anders/Lymph Denies easy bruising Aller/Immun Denies itchy eyes, Denies seasonal rhinorrhea and Denies wheezing Physical Exam Vital Signs: Last Vital Signs Pulse 91 09/03/24 11:33 BP 106/62 09/03/24 11:33 Pulse Ox 95 09/03/24 11:33 Oxygen Delivery Method Room Air 09/03/24 11:33 BMI result Body Mass Index 23.1 Const General: no acute distress and alert Nutritional Appearance: not obese Orientation/consciousness: Other orientation findings ( oriented) HEENT Head: Yes atraumatic Eyes General: appearance normal, both eyes and all related structures Sclerae: sclerae normal EOM: EOMs intact bilaterally Neck Neck: Yes supple Lymphatic: no lymphadenopathy noted Resp Effort & Inspection: normal respiratory effort and no use of accessory muscles Auscultation: clear to auscultation bilaterally Cardio Rate: regular rate Rhythm: regular rhythm Heart sounds: no gallops, no murmurs and no rubs Skin General skin exam: other ( warm) Extrem General: No clubbing, No cyanosis and No edema Assessment & Plan Assessment & Plan (1) COPD (chronic obstructive pulmonary disease): Code(s): J44.9 - Chronic obstructive pulmonary disease, unspecified Category: Medical Plan: Controlled on current regimen of Breztri, Symbicort, theophylline, duo nebs, albuterol MDI. Continue current regimen. Continue Ativan for hyperventilation/air trapping component. (2) Supplemental oxygen dependent: Code(s): Z99.81 - Dependence on supplemental oxygen Category: Medical Plan: Continue supplemental oxygen to maintain O2 saturation of 88-92% (3) Personal history of nicotine dependence: Code(s): Z87.891 - Personal history of nicotine dependence Category: Medical Plan: Lung cancer screening CT chest results are not available for this visit. On my review, no worrisome nodules, continue with yearly screening. (4) Preop pulmonary/respiratory exam: Code(s): Z01.811 - Encounter for preprocedural respiratory examination Category: Medical Plan: At this time patient is at low risk for pulmonary preoperative complications for the proposed colonoscopy either under general anesthesia, or monitored anesthesia care. Coding Level of Care Code Est Pt Level 4 (12935) Complex EM visit Add On G2211 Diagnoses COPD (chronic obstructive pulmonary disease) J44.9 Supplemental oxygen dependent Z99.81 Personal history of nicotine dependence Z87.891 Preop pulmonary/respiratory exam Z01.811
== END 2024-09-03 11:53 | disposition home or self-care (01) ==
PROVIDERS: PCP Internal Medicine; Visit Provider Internal Medicine Pulmonary Disease
DX: J44.9 Chronic obstructive pulmonary disease, unspecified (principal); Z99.81 Dependence on supplemental oxygen; Z87.891 Personal history of nicotine dependence; Z01.811 Encounter for preprocedural respiratory examination
CPT/HCPCS: 99214

== ENCOUNTER 2024-10-18 08:23 | Day surgery (SDC) | payer MEDICAID, SELFPAY ==
[2023-05-07 07:21] VITALS: BMI 22.6
[2024-07-27 11:31] VITALS: BMI 22.6
--- OUTSIDE RECORDS SUMMARY | 2024-08-31 16:27 | XMS_ITS ---
Author Organization [facility] Address [address] [place] [address] Care Team Providers Care Mental Health Nurse Name Role Phone Alfred Alfaro MD Primary Care Provider Dominic Omalley [phone] ALLERGIES Allergen (clinical drug ingredient) Drug/Non Drug Allergy documented on EMR Reaction Allergy Type Onset Date Status morphine Morphine Sulfate Unknown Drug Allergy Active meperidine Demerol Unknown Drug Allergy Active Blueberries blueberries (uncoded) Unknown Allergy Active REASON FOR VISIT Patient presents today for a colon screening MEDICATIONS Medication SIG (Take, Route, Frequency, Duration) Notes Start Date End Date Status Breo Ellipta 200-25 MCG/INH INHALE 1 PUFF INTO THE LUNGS ONCE DAILY DIRECTED Inhalation for 90 Active Losartan Potassium 100 MG TAKE 1 TABLET BY MOUTH EVERY DAY Oral for 90 Active LORazepam 1 MG TAKE 1 TABLET BY MAIRA TH TWICE A DAY NEEDED FOR ANXIETY Oral for 30 Active amLODIPine Besylate 5 MG as directed Ora lly Once a day Active Omeprazole 20 MG Oral for 90 A ctive Albuterol Sulfate HFA 108 (90 Base) MCG/ACT 1 puff as needed Inhalation every 4 hrs Active Aspirin 81 MG 1 tablet Orally Once a day Not-Taking Metoprolol Tartrate 100 MG TAKE 1 TABLET BY MOUTH TWICE A DAY Oral for 90 Active Wixela Inhub 500-50 MCG/ACT INHALE 1 DOSE BY MOUTH TWICE DAILY. RINSE MOUTH AFTER USE Inhalation for 90 Active Dicyclomine HCl 10 MG 1 or 2 capsules Or ally Every 6 hours as needed for abdominal cramps/discomfort for 30 day(s) 06/17/2024 Active SOCIAL HISTORY Tobacco Use: Social History Observation Description Date Details (start date - stop date) Current Smoker NA - NA Sex Assigned At : Social History Observation Description Sex Assigned At Unknown Tobacco Use/Smoking Question Answer Notes Patient is a current smoker How often do you smoke cigarettes? every day How many cigarettes a day do you smoke? 6-10 Alcohol Screen Question Answer Notes Did you have a drink contain ing alcohol in the past year? Yes How often did you have a dri nk containing alcohol in the past year? Monthly or less (1 point) How many drinks did you have on a typical day when you were drinking in the past year? 1 or 2 drinks (0 point) How often did you have 6 or more drinks on one occasion in the past year? Never (0 point) Points 1 Interpretation Negative VITAL SIGNS BMI 23.17 kg/m2 06/17/2024 Blood pressure systolic 00 mm Hg 06/17/20 24 Blood pressure diastolic 00 mm Hg 024 Height 64 in 06/17/2024 Weight 135 lbs 06/17/2024 Encounters Encounter Location Date Provider Diagnosis [facility] [address] [place] [address] 06/17/2024 Dominic Weems Irritable bowel syndrome with both constipation and diarrhea K58.2 ; History of adenomatous polyp of colon Z86.010 ; Family history of colon cancer Z80.0 and Colon cancer screening Z12.11 ASSESSMENTS Encounter Date Diagnosis Assessment Notes Treatment Notes Treatment Clinical Notes 06/17/2024 Irritable bowel syndrome with both constipation and diarrhea (ICD-10 - K58.2) 06/17/2024 History of adenomatous polyp of colon (ICD-10 - Z86.010) 06/17/2024 Family history of colon cancer (ICD-10 - Z80.0) Need clearance from Dr. Ivan after her 08/2024 appt with him 06/17/2024 Colon cancer screening (ICD-10 - Z12.11) PLAN OF TREATMENT Medication Medication Name Sig Start Date Stop Date Notes Dicyclomine HCl 10 MG 1 or 2 capsules Or ally Every 6 hours as needed for abdominal cramps/discomfort for 30 day(s) 06/17/2024 Treatment Notes Assessment Notes Family history of colon cancer Need nathalie marroquin from Dr. Ivan after her 08/2024 appt with him Future Test Test Name Order Date COLONOSCOPY 06/17/2024 Next Appt Details Follow Up: prn, Reason: Provider Name:Dominic Weems , 10/18/2024 11:30:00 AM, [address] [place] [address], [phone], Progress Notes * Examination Category Sub-Category Detail Notes General Examination GENERAL APPEARANCE: pleasant , well nourished, well developed, in no acute distress EYES: sclera non-icteric NECK/THYROID: no cervical lymphade nopathy, neck supple HEART: S1, S2 normal LUNGS: clear to auscultatio n bilaterally ABDOMEN: normal bowel sounds, no guarding or rigidity, no hepatosplenomegaly, no masses palpable, soft, nontender, nondistended. NEUROLOGIC: alert and oriented SKIN: nonjaundiced, no spi linda angiomata. EXTREMITIES: no edema ORAL CAVITY: mucosa moist
--- OUTSIDE RECORDS SUMMARY | 2024-08-31 16:27 | XMS_ITS ---
Author Organization [facility] Address [address] [place] [address] Care Team Providers Care Film Process Operator Name Role Phone Angelina BILLINGS, Alfred Primary Care Provider Dominic Omalley Unavailable [phone] REASON FOR VISIT rectal bleeding and abd pain Encounters Encounter Location Date Provider Diagnosis [facility] [address] [place] [address] 2024 Dominic Weems PLAN OF TREATMENT Next Appt Details Provider Name:Dominic Weems , 10/18/2024 11:30:00 AM, [address] [facility] , [place], [place], [phone],
--- OUTSIDE RECORDS SUMMARY | 2024-08-31 16:27 | XMS_ITS | Patient Health Record ---
Author Organization [facility] Address [address] [facility] [address] [place] [address] Care Team Providers Care Rn Camp Name Role Phone Angelina BILLINGS, Alfred Primary Care Provider Dominic Omalley Unavailable [phone] ALLERGIES Allergen (clinical drug ingredient) Drug/Non Drug Allergy documented on EMR Reaction Allergy Type Onset Date Status morphine Morphine Sulfate Unknown Drug Allergy Active meperidine Demerol Unknown Drug Allergy Active Blueberries blueberries (uncoded) Unknown Allergy Active RESULTS Component Value Reference Range Notes Pathology Reviewed date:10/27/2023 07:24:54 AM Interpretation: Performing Lab:[facility], [address] [place] [phone] Notes/Report: REASON FOR REFERRAL Referring Provider First Name Socorro Referring Provider Last Name Gilbert Referring Provider Speciality Internal M edicine Referred Organization [facility] Referred Provider Dominic Weems Referred Address [address] [facility] [address] [place] [phone], Referred Provider Specialty Gastroentero logy General Notes Charo Yap 024 04:03:46 PM EST > Call Dr. Hunt's office for [facility] referral for colon with Dr. Weems on 10-18-2024, Charo Yap 08/30/2024 10:04:35 AM EST > REQUESTED REFERRAL Referral Priority Routine MEDICATIONS Medication SIG (Take, Route, Frequency, Duration) Notes Start Date End Date Status Breo Ellipta 200-25 MCG/INH INHALE 1 PUFF INTO THE LUNGS ONCE DAILY DIRECTED Inhalation for 90 Active Losartan Potassium 100 MG TAKE 1 TABLET BY MOUTH EVERY DAY Oral for 90 Active Omeprazole 20 MG Oral for 90 A ctive Wixela Inhub 500-50 MCG/ACT INHALE 1 DOSE BY MOUTH TWICE DAILY. RINSE MOUTH AFTER USE Inhalation for 90 Active LORazepam 1 MG TAKE 1 TABLET BY MAIRA TH TWICE A DAY NEEDED FOR ANXIETY Oral for 30 Active amLODIPine Besylate 5 MG as directed Ora lly Once a day Active Albuterol Sulfate HFA 108 (90 Base) MCG/ACT 1 puff as needed Inhalation every 4 hrs Active Aspirin 81 MG 1 tablet Orally Once a day Not-Taking Metoprolol Tartrate 100 MG TAKE 1 TABLET BY MOUTH TWICE A DAY Oral for 90 Active Dicyclomine HCl 10 MG 1 or 2 capsules Or ally Every 6 hours as needed for abdominal cramps/discomfort for 30 day(s) 06/17/2024 Active IMMUNIZATIONS Vaccine Route Administration Date Status Comme nts Influenza Unknown 05/23/2020 Administered SOCIAL HISTORY Tobacco Use: Social History Observation [...] Never (0 point) Points 1 Interpretation Negative PROBLEMS Problem Type ICD Code Onset Dates Problem Status W/U Status Risk SNOMED Code Notes Problem Colon cancer screening (Z12.11) Active confirmed 865544665 Problem Rectal bleeding (K62.5) Active confirmed 82494784 Problem History of adenomatous polyp of colon (Z86.010) Active confirmed 695522031 Problem Diverticulosis of large intestine without perforation or abscess without bleeding (K57.30) Active confirmed Diverticul ar disease of colon (081720413) Problem Dysphagia (R13.10) Active confirmed Dys phagia (78429153) Problem Family history of colon cancer (Z80.0) Active confirmed 974493106 Problem Rectal bleed (K62.5) Active confirmed 60231810 Problem Gastritis (K29.70) Active confirmed Gas tritis (6464011) Problem Irregular bowel habits (R19.8) Active confirmed 404429931 Problem Gastroesophageal reflux (K21.9) Active confirmed Esophageal reflux finding (926757872) Problem Diarrhea, unspecified type (R19.7) Active confirmed 02857564 Problem Irritable bowel syndrome with both constipation and diarrhea (K58.2) Active confirmed 03701425 Problem Gastroesophageal reflux disease, unspecified whether esophagitis present (K21.9) Active confirmed 234774609 Problem Esophageal dysphagia (R13.19) Active confirmed 17612217 VITAL SIGNS Blood pressure diastolic 00 mm Hg 06/17/2024 Height 64 in 06/17/2024 Blood pressure systolic 00 mm Hg 06/17/2024 Weight 135 lbs 06/17/2024 BMI 23.17 kg/m2 06/17/2024 Encounters Encounter Location Date Provider Diagnosis [facility] Outpatient [address] [place] [phone] 10/13/2023 Dominic Weems Colon polyps K63.5 ; Hematochezia K92.1 ; Diverticulosis of large intestine without perforation or abscess without bleeding K57.30 and Other hemorrhoids K64.8 [facility] [address] [place] [phone] 06/17/2024 Dominic Weems Irritable bowel syndrome with both constipation and diarrhea K58.2 ; History of adenomatous polyp of colon Z86.010 ; Family history of colon cancer Z80.0 and Colon cancer screening Z12.11 [facility] [address] [place] [phone] 10/14/2023 Dominic Weems [facility] [address] [place] [phone] 11/17/2023 Dominic Weems [facility] [address] [place] [address] [place] [address] 2024 Dominic Weems ASSESSMENTS Encounter Date Diagnosis Assessment Notes Treatment Notes Treatment Clinical Notes 10/13/2023 Colon polyps (ICD-10 - K63.5) 10/13/2023 Hematochezia (ICD-10 - K92.1) 06/17/2024 History of adenomatous polyp of colon (ICD-10 - Z86.010) 06/17/2024 Irritable bowel syndrome with both constipation and diarrhea (ICD-10 - K58.2) 10/13/2023 Diverticulosis of large intestine without perforation or abscess without bleeding (ICD-10 - K57.30) 06/17/2024 Family history of colon cancer (ICD-10 - Z80.0) Need clearance from Dr. Ivan after her 08/2024 appt with him 10/13/2023 Other hemorrhoids (ICD-10 - K64.8) 06/17/2024 Colon cancer screening (ICD-10 - Z12.11) PLAN OF TREATMENT Pending Test Test Name Order Date LIVER PROFILE 05/09/2015 CRP 05/09/2015 CBC w DIFF 05/29/2023 CBC with MANUAL DIFFERENTIAL 05/09/2015 SED RATE (ESR) 05/09/2015 CLOSTRIDIUM DIFF TOXIN A&B (C DIFF) 04/22 CLOSTRIDIUM DIFF TOXIN A&B (C DIFF) 03/22 STOOL WBC 05/09/2015 STOOL WBC 04/07/2018 CELIAC PANEL #10 05/09/2015 GIARDIA AG, STOOL EIA 04/07/2018 GIARDIA AG, STOOL EIA 05/09/2015 OVA & PARASITES (O&P) 04/07/2018 OVA & PARASITES (O&P) 05/09/2015 CULTURE, STOOL 04/07/2018 CULTURE, STOOL 05/09/2015 Future Test Test Name Order Date COLONOSCOPY 03/01/2015 COLONOSCOPY 04/07/2018 UPPER GI ENDOSCOPY BALLOOON DILATION OF ESOPH 06/26/2021 COLONOSCOPY 08/12/2023 COLONOSCOPY 06/17/2024 Next Appt Details Provider Name:Dominic Weems , 10/18/2024 11:30:00 AM, [address] [facility] , [place], [place], [phone], Insurance Providers Payer Name Payer Address Payer Phone Subscriber Number Group Number Insured Name Patient Relationship to Insured Coverage Start Date Coverage End Date MEDICAID OF [employer] [address] [place] [address] [id number] MINOO GOMEZ Self - patient is the insured MEDICAL (GENERAL) HISTORY Medical History History ICD Code COPD--wears oxygen for walking--sees Dr. Ivan at [facility] Hypertension [place] in 12/2013--had 1 stent placed---fine since Colonoscopies in 1996 and --hyperplastic polyps; biopsies were negative for any type of inflammatory bowel disease; colonoscopy in 06/2015--small tubular adenoma, diverticulosis, and internal hemorrhoids; there was no colitis EGD in 1996-small hiatal hernia and mild gastroesophageal reflux Denies DM,CVA,renal disease Anxiety Infectious colitis in 2014 Colonoscopy 04/2018 with tubu lar adenomas and microscopic colitis. There was no gross evidence of colitis. Given a Rx for oral budesonide but then never came back for F/U. She had 2 N/S's for OV's. 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 pylori Colonoscopy in September revealed multiple tubular adenomas, one of which was relatively large and flat in the ascending colon that was removed in piecemeal fashion. Surgical History Surgery Date(Month/Year) x 2 [facility] Partial left lung resection--benign Cataracts
--- OUTSIDE RECORDS SUMMARY | 2024-08-31 16:27 | XMS_ITS ---
Author Organization [facility] Address [address] [place] [address] Care Team Providers Care Social Media Intern Name Role Phone Angelina BILLINGS, Alfred Primary Care Provider Dominic Omalley Unavailable [phone] REASON FOR VISIT FYI only Encounters Encounter Location Date Provider Diagnosis [facility] [address] [facility] [address] [place] [phone] 11/17/2023 Dominic Weems PLAN OF TREATMENT Next Appt Details Provider Name:Dominic Weems , 10/18/2024 11:30:00 AM, [address] [place] [address] , [place], [place], [phone],
--- NOTE | 2024-10-15 09:13 | P.CONAN_ITS ---
Documented by User: Ileana Barron NP 10/15/24 09:17 HPI - Anesthesia Eval Consult details Narrative: 64yo F for Colonoscopy Continuous O2 @ 2-3 L. Pulmo optimized. [place]s [facility] [place] CAD s/p NE/Stent 2013 [facility] Active Problems Active Problems: All Active Problems Personal history of nicotine dependence (Acute) Preop pulmonary/respiratory exam (Acute) Supplemental oxygen dependent (Acute) Post covid-19 condition, unspecified (Acute) Pulmonary nodules (Acute) Environmental allergies (Acute) COPD (chronic obstructive pulmonary disease) (Acute) Past Medical History Medical History High cholesterol HTN (hypertension) Myocardial infarct COPD (chronic obstructive pulmonary disease) Family History Family history of problems with anesthesia: No Surgical History Surgical History Hx of cataract extraction History of lung surgery Hx of heart artery stent Hx of excision of mass History of nasal surgery H/O colonoscopy History of esophagogastroduodenoscopy (EGD) H/O: hysterectomy Hx of section History of Problems with Anesthesia: No Social History Social History Household Members: Spouse and Significant Other Household Members Other:: Patient Tobacco Use Status: Current everyday Tobacco user Tobacco use type: Cigarette Cigarettes Per Day: 7 Years Smoked: 35+ Smoked in Last 30 Days: Yes Second Hand Smoke Exposure: No Use of substances other than those prescribed or required for medical reasons: No Are you DNR?: No Advance Directives: No Advance Directives Information Provided: Yes Meds Allergies Allergy/AdvReac Type Severity Reaction Status Date / Time meperidine [From DEMEROL] Allergy Severe NAUSEA & Verified 04/12/24 10:09 VOMITING,SWELLING morphine [MORPHINE] Allergy Mild NAUSEA & Verified 04/12/24 10:09 VOMITING, SWELLING Home Medications ?Medication ?Instructions ?Recorded ?Confirmed ?Last Taken ?Type amlodipine 5 mg tablet 5 mg PO DAILY blood pressure 07/28/20 10/09/23 10/13/23 06:30 History evolocumab 140 mg/mL subcutaneous 140 mg subcut Q2W 07/28/20 10/09/23 Unknown History pen injector levalbuterol HCl 1.25 mg/3 mL 1.25 mg inhalation Q4H PRN 07/28/20 10/09/23 Unknown History solution for nebulization Shortness Of Breath Or Wheezing losartan 100 mg tablet 100 mg PO DAILY 07/28/20 10/09/23 Unknown History metoprolol tartrate 100 mg tablet 100 mg PO BID 07/28/20 10/09/23 10/13/23 06:30 History clonidine HCl 0.2 mg tablet 0.2 mg PO BID 07/30/21 10/09/23 Unknown History gabapentin 300 mg capsule 300 mg PO TID 07/30/21 10/09/23 Unknown History omeprazole 20 mg capsule,delayed 20 mg PO DAILY 07/30/21 10/09/23 Unknown History release Exam Pertinent Lab Results Pertinent Lab Results: Laboratory Tests 04/12/24 09/03/24 14:37 12:23 WBC 17.2 H Hgb 15.3 Hct 44.0 Plt Count 184 Sodium 134 L Potassium 4.0 Chloride 99 Carbon Dioxide 25 BUN 12 Creatinine 0.66 Assessment and Plan Assessment Anesthesia Assessment: Chart Reviewed Final Anesthetic Review Family History of Problems with Anesthesia: No History of Problems with Anesthesia: No Documented by User: Vargas Sims MD 10/18/24 10:29 [facility] Past Medical History Medical History High cholesterol HTN (hypertension) Myocardial infarct COPD (chronic obstructive pulmonary disease) Surgical History Surgical History Hx of cataract extraction History of lung surgery Hx of heart artery stent Hx of excision of mass History of nasal surgery H/O colonoscopy History of esophagogastroduodenoscopy (EGD) H/O: hysterectomy Hx of section Social History Social History Household Members: Spouse and Significant Other Household Members Other:: Patient Tobacco Use Status: Current everyday Tobacco user Tobacco use type: Cigarette Cigarettes Per Day: 7 Years Smoked: 35+ Smoked in Last 30 Days: Yes Second Hand Smoke Exposure: No Use of substances other than those prescribed or required for medical reasons: No Are you DNR?: No Advance Directives: No Advance Directives Information Provided: Yes Meds Allergies Allergy/AdvReac Type Severity Reaction Status Date / Time meperidine [From DEMEROL] Allergy Severe NAUSEA & Verified 04/12/24 10:09 VOMITING,SWELLING morphine [MORPHINE] Allergy Mild NAUSEA & Verified 04/12/24 10:09 VOMITING, SWELLING Home Medications ?Medication ?Instructions ?Recorded ?Confirmed ?Last Taken ?Type amlodipine 5 mg tablet 5 mg PO DAILY blood pressure 07/28/20 10/09/23 10/13/23 06:30 History evolocumab 140 mg/mL subcutaneous 140 mg subcut Q2W 07/28/20 10/09/23 Unknown History pen injector levalbuterol HCl 1.25 mg/3 mL 1.25 mg inhalation Q4H PRN 07/28/20 10/09/23 Unknown History solution for nebulization Shortness Of Breath Or Wheezing losartan 100 mg tablet 100 mg PO DAILY 07/28/20 10/09/23 Unknown History metoprolol tartrate 100 mg tablet 100 mg PO BID 07/28/20 10/09/23 10/13/23 06:30 History clonidine HCl 0.2 mg tablet 0.2 mg PO BID 07/30/21 10/09/23 Unknown History gabapentin 300 mg capsule 300 mg PO TID 07/30/21 10/09/23 Unknown History omeprazole 20 mg capsule,delayed 20 mg PO DAILY 07/30/21 10/09/23 Unknown History release Exam Airway Mallampati Class: II TM Dist: <=3cm Neck ROM: Full Denture: Upper Partial: Lower Heart: see above. Lungs: CTA. Normalexp phase. RA SpO2 92% Assessment and Plan Assessment Anesthesia Assessment: Anesthesia Plan Discussed Final Anesthetic Review NPO: Yes ASA Class: III and IV Final Preanesthetic Review: No Changes in Pt Med Stat, Meds/Allgs Chart R elena, Consent Obtained/Reviewed and Anes Risks/Benef Reviewed Patient Risk: High Procedure Risk: Low Anesthetic Plan Anesthetic Plan: MAC: and Agree w/ Assess. and Plan Disposition: Standard PACU
[2024-10-18 08:31] VITALS: BMI 23.1
[2024-10-18 08:38] VITALS: BP 133/67; PULSE 84; RESP 20; TEMP 36.1; O2SAT 92
[2024-10-18] MEDS: Lactated Ringers 1,000 ML 100 ML IVCONT (08:54)
[2024-10-18 11:10] VITALS: BP 125/59; PULSE 79; RESP 18; TEMP 36.8; O2SAT 93
--- NOTE | 2024-10-18 11:13 | PM.OP ---
Brief Operative Note Date of Service: 10/18/24 Pre-op diagnosis: Screening Post-op diagnosis: other (Colon polyp) Procedure: Colonoscopy to the cecum and TI with hot snare polypectomy x 1 Surgeon: Dominic Weems MD Anesthesia: MAC Was an [employer] Worker used for this Procedure?: No Estimated blood loss (mL): 0 Pathology: other (A. Proximal ascending colon polyp) Condition: stable Disposition: PACU
[2024-10-18 11:20] VITALS: BP 106/55; PULSE 78; RESP 18
[2024-10-18 11:42] VITALS: BP 114/65; PULSE 79; RESP 18; TEMP 36.3; O2SAT 93
--- NOTE | 2024-10-18 11:42 | OP_ITS ---
DATE OF SERVICE: 10/18/2024 SURGEON: Dominic Weems MD INDICATIONS: The patient presents for followup of personal history of tubular adenoma of the colon, family history of colon cancer, and need for colorectal cancer screening. Full consent has been obtained from her for this, including risks of bleeding and perforation. PREOPERATIVE DIAGNOSIS: POSTOPERATIVE DIAGNOSIS: PROCEDURE PERFORMED: Colonoscopy to the cecum with hot snare polypectomy. ESTIMATED BLOOD LOSS: COMPLICATIONS: ANESTHESIA: Monitored anesthesia care. ASSISTANTS: SPECIMENS: PREOPERATIVE DIAGNOSES: Colorectal cancer screening, personal history of tubular adenoma of the colon, and family history of colon cancer. POSTOPERATIVE DIAGNOSES: Colorectal cancer screening, personal history of tubular adenoma of the colon, and family history of colon cancer, colon polyp, diverticulosis, and internal hemorrhoids. DESCRIPTION OF PROCEDURE: The patient was placed in the left lateral decubitus position. The digital rectal exam revealed no abnormalities. The Olympus video pediatric colonoscope was entered into the rectum and advanced easily to the cecum. Once in the cecum, I did identify normal-appearing cecal pouch with appendiceal orifice and a normal-appearing ileocecal valve. The entire cecum and ileocecal valve appeared normal. The terminal ileum was cannulated and appeared normal. The scope was withdrawn back in the colon. The entire cecum and ileocecal valve appeared normal. The scope was then slowly withdrawn assessing all mucosal surfaces carefully. Preparation was excellent. In the proximal ascending colon was evidence of some scarring consistent with the previous polypectomy site. Also, in the same area was an approximately 1.5 cm polyp, which was removed by hot snare polypectomy and recovered with a retrieval basket and brought out of the patient. The scope was then readvanced back into the rectum and to the site of the polypectomy, which appeared clean, without any sign of residual polyp nor bleeding. The scope was then slowly withdrawn assessing all mucosal surfaces carefully. Preparation was excellent. I did not visualize any sign of other polyps, colitis, nor angiodysplasia. There was a mild amount of sigmoid diverticulosis. In the rectum, scope was retroflexed visualizing internal hemorrhoids, but no other pathology. The rectal mucosa appeared normal. The scope was straightened and withdrawn from the patient. She tolerated the procedure well and was returned to the recovery area in stable condition. IMPRESSION: 1. Colon polyp. 2. Diverticulosis. 3. Internal hemorrhoids. PLAN: The results of the pathology will be checked. Given her previous history, today's findings, and her family history, I would recommend a followup colonoscopy within 2 to 3 years. She was advised not to use any aspirin and NSAIDs for 1 week. She will otherwise see me in the interim on a p.r.n. basis. MD EROS Dockery/[facility] / [phone]
== END 2024-10-18 12:07 | disposition home or self-care (01) ==
PROVIDERS: PCP Internal Medicine; Visit Provider Internal Medicine
PROC: 0DJD8ZZ Inspection of Lower Intestinal Tract, Via Natural or Artificial Opening Endoscopic (ICD-10-PCS; CPT 45378; principal; 2024-10-18 09:30)
DX: Z12.11 Encounter for screening for malignant neoplasm of colon (principal); Z86.0101 Personal history of adenomatous and serrated colon polyps; Z80.0 Family history of malignant neoplasm of digestive organs; D12.2 Benign neoplasm of ascending colon; K57.30 Diverticulosis of large intestine without perforation or abscess without bleeding; K64.8 Other hemorrhoids; K58.2 Mixed irritable bowel syndrome; I10 Essential (primary) hypertension; I25.2 Old myocardial infarction; Z95.5 Presence of coronary angioplasty implant and graft; E78.00 Pure hypercholesterolemia, unspecified; J44.9 Chronic obstructive pulmonary disease, unspecified; Z99.81 Dependence on supplemental oxygen; Z79.51 Long term (current) use of inhaled steroids; Z79.899 Other long term (current) drug therapy; Z98.890 Other specified postprocedural states; F17.210 Nicotine dependence, cigarettes, uncomplicated
CPT/HCPCS: 45385; 88305; J2003; J2250; J2704

== ENCOUNTER 2024-12-29 13:32 | Outpatient (AMB) | payer MEDICAID, SELFPAY ==
[2024-07-27 11:31] VITALS: BMI 22.6
[2024-12-29 13:56] VITALS: BP 102/60; PULSE 100; O2SAT 94; BMI 22.6
--- NOTE | 2024-12-29 13:56 | MHC.OFFVIS ---
Vital Signs 12/29/24 13:56 Height 5 ft 5 in Weight 136 lb BMI 22.6 BP 102/60 Blood Pressure Location Rt brachial Position Sitting Pulse 100 Pulse Source Doppler Pulse Oximetry (%) 94 Oxygen Delivery Method Room Air Intake Visit Reasons: copd Allergies meperidine [From DEMEROL] Allergy (Severe, Verified 12/29/24 14:03) NAUSEA & VOMITING,SWELLING morphine [MORPHINE] Allergy (Mild, Verified 12/29/24 14:03) NAUSEA & VOMITING, SWELLING HPI HPI copd: Details: 64-year-old lady, recent 35+ pack-year smoker, followed for severe to very severe supplemental oxygen 2-3L dependent COPD and pulmonary nodules.? She has been using BrezTri, Symbicort, theophylline, and albuterol MDI.? She can no longer afford theophylline. She denies recent exacerbations. She also has been using lorazepam twice a day for anxiety to reduce hyperventilation and air trapping with good effect. Her follow-up lung cancer screening CT chest showed no worrisome pulmonary nodules. [facility] Medical History High cholesterol HTN (hypertension) Myocardial infarct COPD (chronic obstructive pulmonary disease) Surgical History Hx of cataract extraction History of lung surgery Hx of heart artery stent Hx of excision of mass History of nasal surgery H/O colonoscopy History of esophagogastroduodenoscopy (EGD) H/O: hysterectomy Hx of section Social History Household Members: Spouse and Significant Other Household Members Other:: Patient Tobacco Use Status: Current everyday Tobacco user Tobacco use type: Cigarette Cigarettes Per Day: 7 Years Smoked: 35+ Second Hand Smoke Exposure: No Review of Systems Const Denies daytime sleepiness, Denies excessive sweating, Denies fatigue, Denies fever(s), Denies lethargy, Denies malaise, Denies night sweats, Denies snoring and Denies weight loss Eyes Denies blurry vision and Denies itchy eyes ENT Denies nasal congestion, Denies post nasal drip, Denies sinus pain, Denies sinus pressure and Denies other ( Thrush) Card Denies chest pain, Denies pedal edema, Denies dyspnea, Reports dyspnea on exertion, Denies orthopnea and Denies paroxysmal nocturnal dyspnea Resp Denies cough, Denies hemoptysis, Denies excessive phlegm production, Denies dyspnea, Reports dyspnea on exertion, Denies snoring and Denies wheezing GI Denies abdominal pain and Denies heartburn Musc Denies myalgias, Denies arthralgias and Denies joint swelling Skin/Breast Denies rash Neuro Denies memory loss and Denies seizure-like activity Psych Denies abnormal sleep pattern, Denies anxiety and Denies memory loss Endo Denies excessive sweating, Denies fatigue and Denies heat intolerance Anders/Lymph Denies easy bruising Aller/Immun Denies itchy eyes, Denies seasonal rhinorrhea and Denies wheezing Physical Exam Vital Signs: Last Vital Signs Pulse 100 12/29/24 13:56 BP 102/60 12/29/24 13:56 Pulse Ox 94 12/29/24 13:56 Oxygen Delivery Method Room Air 12/29/24 13:56 BMI result Body Mass Index 22.6 Const General: no acute distress and alert Nutritional Appearance: not obese Orientation/consciousness: Other orientation findings ( oriented) HEENT Head: Yes atraumatic Eyes General: appearance normal, both eyes and all related structures Sclerae: sclerae normal EOM: EOMs intact bilaterally Neck Neck: Yes supple Lymphatic: no lymphadenopathy noted Resp Effort & Inspection: normal respiratory effort and no use of accessory muscles Auscultation: clear to auscultation bilaterally Cardio Rate: regular rate Rhythm: regular rhythm Heart sounds: no gallops, no murmurs and no rubs Skin General skin exam: other ( warm) Extrem General: No clubbing, No cyanosis and No edema Assessment & Plan Assessment & Plan (1) COPD (chronic obstructive pulmonary disease): Code(s): J44.9 - Chronic obstructive pulmonary disease, unspecified Category: Medical Plan: Severe to very severe underlying COPD. Can no longer afford theophylline after recent pricing crease. Will try on Ohtuvayre. Continue baseline regimen of Breztri, Symbicort, duo nebs, and albuterol MDI. Restart prednisone 10 mg daily. (2) Supplemental oxygen dependent: Code(s): Z99.81 - Dependence on supplemental oxygen Category: Medical Plan: Continue supplemental oxygen to maintain O2 saturation of 89-93%. (3) Personal history of nicotine dependence: Code(s): Z87.891 - Personal history of nicotine dependence Category: Medical Plan: Results of lung cancer screening CT chest reviewed, no worrisome nodules, continue with yearly screening, next in July of 2025. Orders: Orders CT lung screening 07/31/25 Z87.891 - Personal history of nicotine dependence Medications: New prednisone 5 mg PO BID 60 tabs 6RF ensifentrine (Ohtuvayre) 2.5 mL inhalation BID 150 mL 6RF Z87.891 - Personal history of nicotine dependence Coding Level of Care Code Est Pt Level 4 (44513) Complex EM visit Add On G2211 Diagnoses COPD (chronic obstructive pulmonary disease) J44.9 Supplemental oxygen dependent Z99.81 Personal history of nicotine dependence Z87.891
--- OUTSIDE RECORDS SUMMARY | 2024-12-29 15:41 | XMS_ITS | Clinical Summary ---
Author Organization [facility] Address [address] [place] [address] Phone Care Team Providers Care Software Verification Engineer Name Role Phone Socorro Hunt MD Primary Care Provider [phone] Allergies Active Allergy Reactions Criticality Noted Date Comments Meperidine 12/23/2024 Medications benzonatate (TESSALON) 200 mg capsule TAKE 1 CAPSULE BY MOUTH TWICE DAILY NEEDED FOR COUGH 5 Active Symbicort 160-4.5 mcg/actuation inhaler Inhale 2 puffs by mouth 2 (two) times a day. 5 Active Breztri Aerosphere 160-9-4.8 mcg/actuation HFA aerosol inhaler inhaler Inhale 2 puffs by mouth 2 (two) times a day. 5 Active dicyclomine (BENTYL) 10 mg capsule TAKE 1 TO 2 CAPSULES BY MOUTH EVERY 6 HOURS NEEDED FOR ABDOMINAL CRAMPS/DISCOMF ORT 5 Active levoFLOXacin (LEVAQUIN) 750 mg tablet Take 1 tablet (750 mg total) by mouth 1 (one) time each day. 5 Active LORazepam (ATIVAN) 1 mg tablet Take 1 tablet (1 mg total) by mouth 2 (two) times a day if needed. for anxiety Active losartan (COZAAR) 100 mg tablet Take 1 tablet (100 mg total) by mouth 1 (one) time each day. 5 Active metoprolol tartrate (LOPRESSOR) 100 mg tablet Take 1 tablet (100 mg total) by mouth 2 (two) times a day. Active omeprazole (PriLOSEC) [address] capsule Take 1 capsule (20 mg total) by mouth 1 (one) time each day. Active Demond-24 200 mg 24 hr capsule Take 1 capsule (200 mg total) by mouth 1 (one) time each day. Active amLODIPine (NORVASC) 2.5 mg tablet Take 1 tablet (2.5 mg total) by mouth 1 (one) time each day. Active Active Problems Problem Noted Date Diagnosed Date Chronic obstructive lung disease 12/23/2024 Osteoporosis 12/23/2024 Myocardial infarction 12/23/2024 Overview (12/23/2024): 2014 Lung mass 12/23/2024 Overview (12/23/2024): S/P resection Hypertriglyceridemia 12/23/2024 Cigarette smoker 12/23/2024 Neuropathy involving both lower extremities 11/2024 Assessment & Plan (12/23/2024 3:35 PM EDT): O'Chicho describes her feet going numb and resultant falls. This has been going on for at least a month. She does not have significant back pain or radiation of pain down the legs. She is neurologically intact. An MRI of the lumbar spine from [facility] obtained on December 09, 2024 shows multilevel degenerative changes but no significant canal nor foraminal stenosis there was mild bilateral lateral recess stenosis at L4-5 without significant nerve root compression. I think that she may be suffering from neuropathy. I am going to refer her to neurology for evaluation and also to obtain an EMG of the lower extremities. She is welcome to follow-up with us afterwards but I told her I did not think that this was something surgical. Coronary artery disease 02/15/2015 Overview (12/23/2024): with stent HTN (hypertension) 08/08/2008 Encounters Date Type Department Care Team Description 12/27/2024 Telephone [facility] [place] - [address] [place] [address] Liv Balderas [place] Appointment (EMG/NCS & Neurology Consult appointment) 12/23/2024 2:30 PM EDT Office Visit [facility] [address] [place] [address] Guido Kent PA Neuropathy involving both lower extremities (Primary Dx) from Last 3 Months Immunizations Name Administration Dates Next Due H1N1 Inj Preservative Free 09/07/2009 Influenza trivalent, 0.5mL, preservative free (Fluarix; FluLaval; Fluzone) ages 6mo and older (Afluria) 3 years and older 06/24/2017,09/07/2009 MMR, measles mumps and rubel la Live (Priorix; M-M-R II) 12mo and older 04/01/2006 Surgical History Surgery Date Site/Laterality Comments OTHER SURGICAL HISTORY 11/27 PROCEDURE: PARTIAL LUNG REMOVAL W/WEDGE RESECT OTHER SURGICAL HISTORY 1989 PROCEDURE: HISTORICAL HYSTERECTOMY, FULL (W/O CERVIX) CHOLECYSTECTOMY PROCEDURE: HISTORICAL CHOLECYSTECTOMY GALLBLADDER SURGERY OTHER SURGICAL HISTORY N/A Stent in heart Medical History Medical History Date Comments Historical Medical DX DX:Emphyse ma Historical Medical DX 11/27 DX:Lung no dule; COMMENT: S/P resection Fibrocystic disease of breast DX :Fibrocystic disease of breast Hypertension COPD (chronic obstructive pu lmonary disease) ([facility]) Family History Medical History Relation Name Comments Lung cancer Father Breast cancer Mother Relation Name Status Comments Brother Alive Father Mother Sister 1 Alive Sister 2 Alive Social History Tobacco Use Types Packs/Day Years Used Date Smoking Tobacco: Every Day Cigarettes Smokeless Tobacco: Never Tobacco Cessation:Ready to Q uit: Not Asked; Counseling Given: Not Answered Alcohol Use Standard Drinks/Week Comments No 0 (1 standard drink = 0.6 oz pur e alcohol) Comments Unknown Sex and Gender Information Value Date Recorded Sex Assigned at Not on file Legal Sex Female 8:40 PM EST Gender Identity Not on file Sexual Orientation Not on file Obstetrics History Last Filed Vital Signs Vital Sign Reading Time Taken Comments Blood Pressure - - Pulse - - Temperature - - Respiratory Rate - - Oxygen Saturation - - Inhaled Oxygen Concentration - - Weight 59 kg (130 lb) 12/23/2024 2:28 PM EDT Height 165.1 cm (5' 5 ) 12/23/2024 2:28 PM EDT Body Mass Index 21.63 12/23/2024 2:28 PM EDT Plan of Treatment Health Maintenance Due Date Last Done Comments Breast Cancer Screening 1960 DTaP,Tdap,and Td Vaccines (1 - Tdap) 1979 Pneumococcal Vaccine: 50+ Years (1 of 2 - PCV) 1979 Pneumococcal Vaccine: Pediatrics (0 to 5 Years) and At-Risk Patients (6 to 64 Years) (1 of 2 - PCV) 1979 Cervical Cancer Screening: P ap Smear 1981 Zoster Vaccines (1 of 2) 2010 Cholesterol Screening (Lipid Panel) 10/23/2019 Colorectal Cancer Screening: Colonoscopy 10/23/2019 Depression Screening 10/23/2019 HIV Screening 10/23/2019 Hepatitis C Screening 10/23/2019 Osteoporosis Screening (Bone Density Screening) 10/23/2019 Social Influencers of Health Screening 10/23/2019 RSV Immunization Adult Patients (1 - Risk 60-74 years 1-dose series) 2020 Hypertension/CHF/CAD Annual BMP Blood Test 09/07/2022 COVID-19 Vaccine (4 - 2023-2 5 season) 2024 09/19/2021, 11/06/2020, 10/09/2020 Influenza Vaccine (Season Ended) 2025 06/24/2017, 09/07/2009, 09/07/2009 MMR Vaccines Aged Out 04/01/2006 No longer eligi ble based on patient's age to complete this topic HIB Vaccines Aged Out No longer eligi ble based on patient's age to complete this topic HPV Vaccines Aged Out No longer eligi ble based on patient's age to complete this topic Hepatitis A Vaccines Aged Out No long er eligible based on patient's age to complete this topic Hepatitis B Vaccines Aged Out No long er eligible based on patient's age to complete this topic IPV Vaccines Aged Out No longer eligi ble based on patient's age to complete this topic Meningococcal ACWY Vaccine Aged Out N o longer eligible based on patient's age to complete this topic Meningococcal B Vaccine Aged Out No l onger eligible based on patient's age to complete this topic RSV Immunization Patients Under 20 months Aged Out No longer eligible b ased on patient's age to complete this topic Varicella Vaccines Aged Out No longer eligible based on patient's age to complete this topic Insurance [place]ICAID - [place] Care Teams Software Verification Engineer Relationship Specialty Start Date End Date Socorro Hunt MD [address] [place] [address] [place] [address] PCP - General Internal Medicine 12/20/24
--- OUTSIDE RECORDS SUMMARY | 2024-12-29 15:41 | XMS_ITS | Encounter Summary ---
Author Organization [facility] Address [address] [place] [address] Care Team Providers Care Kosher Dietary Service Supervisor Name Role Phone Socorro Hunt MD Primary Care Provider Reason for Visit * Reason Onset Date Comments Appointment 12/27/2024 EMG/NCS & Neurol ogy Consult appointment Encounter Details Date Type Department Care Team (Late st Contact Info) Description 12/27/2024 Telephone Neurosurgery [facility] [address] [place] [address] Liv Balderas [place] Appointment (EMG/NCS & Neurology Consult appointment) Social History Tobacco Use Types Packs/Day Years Used Date Smoking Tobacco: Every Day Cigarettes Smokeless Tobacco: Never Alcohol Use Standard Drinks/Week Comments No 0 (1 standard drink = 0.6 oz pur e alcohol) Comments Unknown Sex and Gender Information Value Date Recorded Sex Assigned at Not on file Legal Sex Female 8:40 PM EST Gender Identity Not on file Sexual Orientation Not on file documented as of this encounter Progress Notes * Liv Balderas MA - 12/27/2024 2:01 PM EDT EMG/NCS appt scheduled for 01/06/25 @ 12:30pm w/Dr. Escalera [facility] Consult scheduled for 01/20/25 @ 12n w/. @ [facility] Patient aware! documented in this encounter Plan of Treatment Not on file documented as of this encounter Visit Diagnoses Not on filedocumented in this encounter Care Teams Kosher Dietary Service Supervisor Relationship Specialty Start Date End Date Socorro Hunt MD [address] [place] [address] [place] [address] PCP - General Internal Medicine 12/20/24 documented as of this encounter
--- OUTSIDE RECORDS SUMMARY | 2024-12-29 15:41 | XMS_ITS ---
Author Organization [facility] Address [address] [place] [address] Care Team Providers Care Director News Name Role Phone Angelina BILLINGS, Alfred Primary Care Provider Dominic Omalley [phone] Encounters Encounter Location Date Provider Diagnosis [facility] [address] [place] [phone] 10/25/2024 Dominic Weems Plan Of Treatment No Information Progress Notes * LIAM GOMEZEDOB: 0 (64 yo F)Acc No.[id number]:10/25/2024 Patient:?GOMEZ, MINOO :1960???Age:64 Y???Sex:Female Address:[address] [place] [address] * true * Date:? Generated for Merissai colby/Jed/eTransmitting on:?12/29/2024 03:41 PM EDT
--- OUTSIDE RECORDS SUMMARY | 2024-12-29 15:41 | XMS_ITS ---
Author Organization [facility] Address [address] [place] [address] Care Team Providers Care Change Booth Attendant Name Role Phone Alfred Alfaro MD Primary Care Provider Dominic Omalley [facility] [phone] REASON FOR VISIT screening,hx polyps,fam hx colon ca Encounters Encounter Location Date Provider Diagnosis [facility] [address] [place] [id number] 10/18/2024 Dominic Weems Colon cancer scree rupal Z12.11 ; Personal history of colonic polyps Z86.0100 ; Family history of colon cancer Z80.0 ; Diverticulosis of large intestine without perforation or abscess without bleeding K57.30 and Other hemorrhoids K64.8 Assessments Encounter Date Diagnosis (ICD Code) Assessment Notes Treatment Notes Treatment Clinical Notes Section Notes 10/18/2024 Colon cancer screening (ICD-10 - Z12.11) 10/18/2024 Personal history of colonic polyps (ICD-10 - Z86.0100) 10/18/2024 Family history of colon cancer (ICD-10 - Z80.0) 10/18/2024 Diverticulosis of large intestine without perforation or abscess without bleeding (ICD-10 - K57.30) 10/18/2024 Other hemorrhoids (ICD-10 - K64.8) Plan Of Treatment No Information Progress Notes * LIAM GOMEZEDOB: 0 (64 yo F)Acc No.[id number]:10/18/2024 COLON WITH MAC Patient:?MINOO GOMEZ Provider:?Dominic Weems MD :1960???Age:64 Y???Sex:Female D ate:10/18/2024 Address:[address] [place] [address] Pcp:Alfred Alfaro MD Subjective: * Chief Complaints: * ???1. Screening,hx polyps,fa m hx colon ca. * Medical History:? Objective: * Vitals:? Assessment: * Assessment: 1.?Colon cancer screening - Z12.11 (Primary)???2.?Personal history of colonic polyps - Z86.0100???3.?Family history of colon cancer - Z80.0???4.?Diverticulosis of large intestine without perforation or abscess without bleeding - K57.30???5.?Other hemorrhoids - K64.8??? Plan: * Treatment: * Procedure Codes:?69200 LESIO N REMOVAL COLONOSCOPY * * The named appointment provid er may or may not be the originator of this progress note, and it is not deemed complete until electronically signed by the appointment provider. Sign off status: Pending * Provider:?Dominic Weems MD Date:? 025 Generated for Jose bowman/Jde/eTransmitting on:?12/29/2024 03:41 PM EDT
--- OUTSIDE RECORDS SUMMARY | 2024-12-29 15:41 | XMS_ITS | Patient Health Record ---
Author Organization [facility] Address [address] [place] [address] Care Team Providers Care Starch Treating Assistant Name Role Phone Angelina BILLINGS, Alfred Primary Care Provider Dominic Omalley [phone] Allergies Allergen (clinical drug ingredient) Drug/Non Drug Allergy documented on EMR Reaction Allergy Type Onset Date Status morphine Morphine Sulfate Unknown Drug Allergy Active meperidine Demerol Unknown Drug Allergy Active Blueberries blueberries (uncoded) Unknown Allergy Active Results Component Value Reference Range Notes Pathology Reviewed date:10/26/2024 06:38:13 PM Interpretation: Performing Lab:[facility], [address] [place] [phone] Notes/Report: Name: GomezMinoo Age/Sex: 64/F : 1960 Unit#: [id number] Attend Dr: Dominic Weems MD Re10/18/24 Status : [facility] Location: [facility] Disch: SPEC : [id number] RECD: 10/18/24 STATUS: GUILLAUME ZARAGOZA NUM: [id number] MICHAEL: 10/18/[address] [facility] [address]: Dominic Weems MD ENTERED: 10/18/24 SP TYPE: Surgical OTHR DR: Socorro Hunt MD ORDERED: HE Stain/3, Gross Micro L4 Diagnosis Colon, ascending, po lypectomy: Tubular adenoma; negative for high-grade dysplasia or carcinoma. Clinical History Pre-Op Dx: H/o colonic polyps Post-Op Dx: Polyp, diverticulosis, hemorrhoids Microscopic Description Microscopic sections reviewed. Material Received Proximal ascending colon polyp Gross Description Received in formalin labeled ?proximal ascending colon polyp is a 0.9 x 0.6 x 0.5 cm velvety, congested a nd hemorrhagic vincent-maroon polypoid portion of tissue. The resected base is and the specimen is sectioned and entirely submitted in a cassette labeled A. CEDS Copies To: Socorro Hunt MD [facility] [address] [place], [place] [id number] Dominic Weems MD [facility] [address] [place] [address] Signed (si gnature on file) Guido Álvarez MD 10/20/24 1105 END OF REPORT Reason For Referral Referring Provider First Name Socorro Referring Provider Last Name Rajesheliud Referring Provider Speciality Internal M edicine Referred Organization [facility] Referred Provider Dominic Weems Referred Address [address] [place] [address],[place] [address],[place], [place],[address], Referred Provider Specialty Gastroentero logy General Notes Charo Yap 024 04:03:46 PM EST > Call Dr. Hunt's office for [facility] referral for colon with Dr. Weems on 10-18-2024, Charo Yap 08/30/2024 10:04:35 AM EST > REQUESTED REFERRAL Referral Priority Routine Medications Medication SIG (Take, Route, Frequency, Duration) Notes [...] abdominal cramps/discomfort for 30 day(s) 06/17/2024 Active Immunizations Vaccine Route Administration Date Status Comme nts Influenza Unknown 05/23/2020 Administered Social History Tobacco Use: Social History Observation Description Date Details (start date - stop date) Current Smoker NA - NA Tobacco Use/Smoking Question Answer Notes Patient is [...] Never (0 point) Points 1 Interpretation Negative Section Notes: Smoker 1 ppd; no sig alcohol presently--had been having 2 drinks QD until 01/2015 Smoker 1 ppd; no sig alcohol presently--had been having 2 drinks QD until 01/2015 Smoker 1 ppd; no sig alcohol presently--had been having 2 drinks QD until 01/2015 Smoker 1 ppd; no sig alcohol presently--had been having 2 drinks QD until 2022 very occasional drink Smoker 1 ppd; no sig alcohol presently--had been having 2 drinks QD until 2022 very occasional drink Problems Problem Type SNOMED Code ICD Code Onset Dates Problem Status W/U Status Risk Notes Problem 428093311 Colon cancer screening (Z12.11) Active confirmed Problem 67692182 Rectal bleeding (K62.5) Active confirmed Problem 769928330 History of adenomatous polyp of colon (Z86.010) Active confirmed Problem Diverticular disease of colon (920987381) Diverticulosis of large intestine without perforation or abscess without bleeding (K57.30) Active confirmed Problem Dysphagia (26313791) Dysphagia (R13.10) Active confirmed Problem 130927231 Family history o f colon cancer (Z80.0) Active confirmed Problem 90562168 Rectal bleed (K62.5) Active confirmed Problem Gastritis (5761658) Gastritis (K29.70) Active confirmed Problem 298230677 Irregular bowel habits (R19.8) Active confirmed Problem Esophageal reflux finding (370451064) Gastroesophageal reflux (K21.9) Active confirmed Problem 81775916 Diarrhea, unspecified type (R19.7) Active confirmed Problem 44768699 Irritable bowel syndrome with both constipation and diarrhea (K58.2) Active confirmed Problem 336649150 Gastroesophageal reflux disease, unspecified whether esophagitis present (K21.9) Active confirmed Problem 59338187 Esophageal dysphagia (R13.19) Active confirmed Vital Signs Blood pressure diastolic 00 mm Hg 06/17/2024 Height 64 in 06/17/2024 Blood pressure systolic 00 mm Hg 06/17/2024 Weight 135 lbs 06/17/2024 BMI 23.17 kg/m2 06/17/2024 Encounters Encounter Location Date Provider Diagnosis [facility] [address] [place] [phone] 10/18/2024 Dominic Weems Colon cancer screeni ng Z12.11 ; Personal history of colonic polyps Z86.0100 ; Family history of colon cancer Z80.0 ; Diverticulosis of large intestine without perforation or abscess without bleeding K57.30 and Other hemorrhoids K64.8 [facility] [address] [place] [phone] 06/17/2024 Dominic Weems Irritable bowel syndrome with both constipation and diarrhea K58.2 ; History of adenomatous polyp of colon Z86.010 ; Family history of colon cancer Z80.0 and Colon cancer screening Z12.11 [facility] [address] [place] [phone] 2024 Dominic Weems [facility] [address] [place] [phone] 10/25/2024 Dominic Weems Assessments Encounter Date Diagnosis (ICD Code) Assessment Notes Treatment Notes Treatment Clinical Notes Section Notes 10/18/2024 Colon cancer screening (ICD-10 - Z12.11) 10/18/2024 Personal history of colonic polyps (ICD-10 - Z86.0100) 06/17/2024 History of adenomatous polyp of colon (ICD-10 - Z86.010) Overall, Minoo appears well considering her ongoing smoking and significant lung disease. We did review the colonoscopy results from September and I have recommended a followup colonoscopy for the early part of 2024 as a followup due to the large and flat polyp that was removed in the ascending colon. Full consent was obtained for that, including risks of bleeding and perforation. We did view the rationale for that in regards to colorectal cancer prevention. She is seeing Dr. Ivan in August for the underlying lung disease and we shall obtain clearance note from him for the procedure. The procedure will be done with monitored anesthesia care. We did discuss the irritable bowel syndrome and I shall send over a new prescription for the dicyclomine for her to use as needed. Minoo was comfortable with this plan. Thank you again for allowing me to participate in Minoo's care. I shall continue to keep you advised of her progress. 06/17/2024 Irritable bowel syndrome with both constipation and diarrhea (ICD-10 - K58.2) Overall, Minoo appears well considering her ongoing smoking and significant lung disease. We did review the colonoscopy results from September and I have recommended a followup colonoscopy for the early part of 2024 as a followup due to the large and flat polyp that was removed in the ascending colon. Full consent was obtained for that, including risks of bleeding and perforation. We did view the rationale for that in regards to colorectal cancer prevention. She is seeing Dr. Ivan in August for the underlying lung disease and we shall obtain clearance note from him for the procedure. The procedure will be done with monitored anesthesia care. We did discuss the irritable bowel syndrome and I shall send over a new prescription for the dicyclomine for her to use as needed. Minoo was comfortable with this plan. Thank you again for allowing me to participate in Minoo's care. I shall continue to keep you advised of her progress. 10/18/2024 Family history of colon cancer (ICD-10 - Z80.0) 06/17/2024 Family history of colon cancer (ICD-10 - Z80.0) Need clearance from Dr. Ivan after her 08/2024 appt with him Overall, Minoo appears well considering her ongoing smoking and significant lung disease. We did review the colonoscopy results from September and I have recommended a followup colonoscopy for the early part of 2024 as a followup due to the large and flat polyp that was removed in the ascending colon. Full consent was obtained for that, including risks of bleeding and perforation. We did view the rationale for that in regards to colorectal cancer prevention. She is seeing Dr. Ivan in August for the underlying lung disease and we shall obtain clearance note from him for the procedure. The procedure will be done with monitored anesthesia care. We did discuss the irritable bowel syndrome and I shall send over a new prescription for the dicyclomine for her to use as needed. Minoo was comfortable with this plan. Thank you again for allowing me to participate in Minoo's care. I shall continue to keep you advised of her progress. 10/18/2024 Diverticulosis of large intestine without perforation or abscess without bleeding (ICD-10 - K57.30) 06/17/2024 Colon cancer screening (ICD-10 - Z12.11) Overall, Minoo appears well considering her ongoing smoking and significant lung disease. We did review the colonoscopy results from September and I have recommended a followup colonoscopy for the early part of 2024 as a followup due to the large and flat polyp that was removed in the ascending colon. Full consent was obtained for that, including risks of bleeding and perforation. We did view the rationale for that in regards to colorectal cancer prevention. She is seeing Dr. Ivan in August for the underlying lung disease and we shall obtain clearance note from him for the procedure. The procedure will be done with monitored anesthesia care. We did discuss the irritable bowel syndrome and I shall send over a new prescription for the dicyclomine for her to use as needed. Minoo was comfortable with this plan. Thank you again for allowing me to participate in Minoo's care. I shall continue to keep you advised of her progress. 10/18/2024 Other hemorrhoids (ICD-10 - K64.8) Plan Of Treatment Pending Test Test Name Order Date LIVER PROFILE 05/09/2015 CRP 05/09/2015 CBC w DIFF 05/29/2023 CBC with MANUAL DIFFERENTIAL 05/09/2015 SED RATE (ESR) 05/09/2015 CLOSTRIDIUM DIFF TOXIN A&B (C DIFF) 04/22 CLOSTRIDIUM DIFF TOXIN A&B (C DIFF) 03/22 STOOL WBC 05/09/2015 STOOL WBC 04/07/2018 CELIAC PANEL #10 05/09/2015 GIARDIA AG, STOOL EIA 04/07/2018 GIARDIA AG, STOOL EIA 05/09/2015 OVA & PARASITES (O&P) 05/09/2015 OVA & PARASITES (O&P) 04/07/2018 CULTURE, STOOL 04/07/2018 CULTURE, STOOL 05/09/2015 Future Test Test Name Order Date COLONOSCOPY 03/01/2015 COLONOSCOPY 04/07/2018 UPPER GI ENDOSCOPY BALLOOON DILATION OF ESOPH 06/26/2021 COLONOSCOPY 08/12/2023 COLONOSCOPY 06/17/2024 Insurance Providers Payer Name Payer Address Payer Phone Subscriber Number Group Number Insured Name Patient Relationship to Insured Coverage Start Date Coverage End Date MEDICAID OF [employer] [address] [place] [id number] MINOO GOMEZ Self - patient is the insured Medical (General) History Medical History History ICD Code COPD--wears oxygen for walking--se[place] Ivan [place] [facility] [place]pertension [place] in 12/2013--had 1 stent placed---fine since Colonoscopies [...]
--- OUTSIDE RECORDS SUMMARY | 2024-12-29 15:42 | XMS_ITS ---
Author Organization [facility] Address [address] [place] [address] Care Team Providers Care Technical Administrative Assistant Name Role Phone Alfred Alfaro MD Primary Care Provider Dominic Omalley [phone] Allergies Allergen (clinical drug ingredient) Drug/Non Drug Allergy documented on EMR Reaction Allergy Type Onset Date Status morphine Morphine Sulfate Unknown Drug Allergy Active meperidine Demerol Unknown Drug Allergy Active Blueberries blueberries (uncoded) Unknown Allergy Active REASON FOR VISIT Patient presents today for a colon screening Medications Medication SIG (Take, Route, Frequency, Duration) [...] abdominal cramps/discomfort for 30 day(s) 06/17/2024 Active Social History Tobacco Use: Social History Observation [...] drinks QD until 2022 very occasional drink Vital Signs Blood pressure systolic 00 mm Hg 06/17/20 24 Blood pressure diastolic 00 mm Hg 024 Height 64 in 06/17/2024 Weight 135 lbs 06/17/2024 BMI 23.17 kg/m2 06/17/2024 Encounters Encounter Location Date Provider Diagnosis [facility] [address] [place] [address] 06/17/2024 Dominic Weems Irritable bowel syndrome with both constipation and diarrhea K58.2 ; History of adenomatous polyp of colon Z86.010 ; Family history of colon cancer Z80.0 and Colon cancer screening Z12.11 Assessments Encounter Date Diagnosis (ICD Code) Assessment Notes Treatment Notes Treatment Clinical Notes Section Notes 06/17/2024 Irritable bowel syndrome with both [...] keep you advised of her progress. 06/17/2024 History of adenomatous polyp of colon [...] keep you advised of her progress. 06/17/2024 Family history of colon cancer (ICD-10 [...] keep you advised of her progress. 06/17/2024 Colon cancer screening (ICD-10 - Z12.11) [...] to keep you advised of her progress. Plan Of Treatment Medication Medication Name Sig Start Date Stop [...] Next Appt Details Follow Up: prn, Reason: Progress Notes * LIAM GOMEZEDOB: 0 (64 yo F)Acc No.[id number]:06/17/2024 Progress Notes Patient:?MINOO GOMEZ Provider:?Dominic Weems MD :1960???Age:64 Y???Sex:Female D ate:06/17/2024 Address:[address] [place] [address] Pcp:Alfred Alfaro MD Subjective: * Chief Complaints: * ???Patient presents today fo r a colon screening * HPI: ???incontinence:? I saw Minoo in followup today in regard to her underlying history of irritable bowel syndrome, personal history of tubular adenomas of the colon, family history of colon cancer, and need for colorectal cancer screening. ?I last saw Minoo in September of 2023 at which time she underwent a followup screening colonoscopy with removal of multiple tubular adenomas, including a relatively large and flat polyp in the ascending colon. Since that time she has been feeling well but does have intermittent episodes of abdominal pain consistent with her irritable bowel syndrome. Her bowel movements have remained fairly regular but she still has to be careful to avoid constipation. She was seen in the ER March for some abdominal pain and rectal bleeding. However the workup for that, including a CT scan and laboratories, was all negative. She was discharged with some dicyclomine that she does report has helped her in regard to abdominal pain. She had been using it p.r.n. but recently ran out of that. ?She enjoys a good appetite and denies any significant heartburn or dysphagia. She does remain on her daily omeprazole. She has not noticed any further hematochezia since her ER visit in March and she denies any melena. She denies any other abdominal pains besides the abdominal cramping. She denies any jaundice nor unintentional weight loss. Her family history is notable for a sibling having had colon cancer in his 40s. * ROS:?General/Constitutional:?Change in appetite?denies.?Chills?denies.?Fatigue?denies.?Ophthalmologic:?Patient denies? Negative..?ENT:?Patient denies?Negative..?Respiratory:?Patient denies?No coughing/hemoptysis..?Cardiovascular:?Patient denies? No chest pain/orthopnea..?Gastrointestinal:?Comments?See HPI for details.?Genitourinary:?Patient denies? No dysuria/hematuria..?Incontinence?denies.?Musculoskeletal:?Patient denies? No specific arthralgias/myalgias..?Skin:?Patient denies?No rash/pruritus..?Neurologic:?Patient denies? No headaches/seizures..?Psychiatric:?Patient denies?Negative..? * Medical History:? * Surgical History:? x 2 MARY LOU CCY Partial left lung resection--benign Cataracts * Hospitalization/Major Diagno stic Procedure:?No Hospitalization History. * Family History:?Father: dece ased.?Mother: .?Siblings: , Brother had colon cancer in his 40's_ _, diagnosed with Colon polyps.? * Social History:?Tobacco Use:?Tobacco Use/Smoking?Patient is a?current smoker,?How often do you smoke cigarettes??every day,?How many cigarettes a day do you smoke??6-10.?Drugs/Alcohol:?Alcohol Screen?Did you have a drink containing alcohol in the past year??Yes,?How often did you have a drink containing alcohol in the past year??Monthly or less (1 point), How many drinks did you have on a typical day when you were drinking in the past year??1 or 2 drinks (0 point),?How often did you have 6 or more drinks on one occasion in the past year??Never (0 point),?Points?1,?Interpretation?Negative.?Miscellaneous:?Marital status: . Occupation: disabled. ???Smoker 1 ppd; no sig alcohol presently--had been having 2 drinks QD until 01/2015/ 2022 very occasional drink. * Medications:?TakingAlbuterol Sulfate HFA 108 (90 Base) MCG/ACT Aerosol Solution 1 puff as needed Inhalation every 4 hrsMetoprolol Tartrate 100 MG Tablet TAKE 1 TABLET BY MOUTH TWICE A DAY Oral Omeprazole 20 MG Capsule Delayed Release Oral Losartan Potassium 100 MG Tablet TAKE 1 TABLET BY MOUTH EVERY DAY Oral Breo Ellipta 200- 25 MCG/INH Aerosol Powder Breath Activated INHALE 1 PUFF INTO THE LUNGS ONCE DAILY DIRECTED Inhalation amLODIPine Besylate 5 MG Tablet as directed Orally Once a dayLORazepam 1 MG Tablet TAKE 1 TABLET BY MOUTH TWICE A DAY NEEDED FOR ANXIETY Oral Wixela Inhub 500-50 MCG/ACT Aerosol Powder Breath Activated INHALE 1 DOSE BY MOUTH TWICE DAILY. RINSE MOUTH AFTER USE Inhalation Taking Albuterol Sulfate HFA 108 (90 Base) MCG/ACT Aerosol Solution 1 puff as needed Inhalation every 4 hrsTaking Metoprolol Tartrate 100 MG Tablet TAKE 1 TABLET BY MOUTH TWICE A DAY Oral Taking Omeprazole 20 MG Capsule Delayed Release Oral Taking Losartan Potassium 100 MG Tablet TAKE 1 TABLET BY MOUTH EVERY DAY Oral Taking Breo Ellipta 200-25 MCG/INH Aerosol Powder Breath Activated INHALE 1 PUFF INTO THE LUNGS ONCE DAILY DIRECTED Inhalation Taking amLODIPine Besylate 5 MG Tablet as directed Orally Once a dayTaking LORazepam 1 MG Tablet TAKE 1 TABLET BY MOUTH TWICE A DAY NEEDED FOR ANXIETY Oral Taking Wixela Inhub 500-50 MCG/ACT Aerosol Powder Breath Activated INHALE 1 DOSE BY MOUTH TWICE DAILY. RINSE MOUTH AFTER USE Inhalation Not-Taking/PRNAspirin 81 MG Tablet Chewable 1 tablet Orally Once a dayNot-Taking/PRN Aspirin 81 MG Tablet Chewable 1 tablet Orally Once a dayDiscontinuedcloNIDine HCl 0.2 MG Tablet 1 tablet Orally Once a dayGabapentin 300 MG Capsule TAKE 2 CAPSULES BY MOUTH 3 TIMES A DAY DIRECTED Oral Medication List reviewed and reconciled with the patientDiscontinued cloNIDine HCl 0.2 MG Tablet 1 tablet Orally Once a dayDiscontinued Gabapentin 300 MG Capsule TAKE 2 CAPSULES BY MOUTH 3 TIMES A DAY DIRECTED Oral Medication List reviewed and reconciled with the patient * Allergies:?Tiffanie lackey[Allergies Verified] Objective: * Vitals:?Wt: 135 lbs, Ht: 64 in, BMI:23.17 Index, BP: 00/00 mm Hg. * Examination: ???General Examination: ?GENERAL APPEARANCE:?pleasant, well nourished, well developed, in no acute distress.?EYES:?sclera non-icteric.?ORAL CAVITY:?mucosa moist.?NECK/THYROID:?no cervical lymphadenopathy, neck supple.?SKIN:?nonjaundiced, no spider angiomata..?HEART:?S1, S2 normal.?LUNGS:?clear to auscultation bilaterally.?ABDOMEN:?normal bowel sounds, no guarding or rigidity, no hepatosplenomegaly, no masses palpable, soft, nontender, nondistended..?EXTREMITIES:?no edema.?NEUROLOGIC:?alert and oriented.? Assessment: * Assessment: 1.?Irritable bowel syndrome with both constipation and diarrhea - K58.2 (Primary)?2.?History of adenomatous polyp of colon - Z86.010?3.?Family history of colon cancer - Z80.0?4.?Colon cancer screening - Z12.11? Overall, Minoo appears well considering her ongoing [...] to keep you advised of her progress. Plan: * Treatment: 2.?History of adenomatous po lyp of colon?Procedure: COLONOSCOPY (Ordered for 06/17/2024) 3.?Family history of colon cancer?Procedure: COLONOSCOPY (Ordered for 06/17/2024)* with MACsched for 10/18/24 at 11:30 ammiralax Notes: Need clearance from Dr. Ivan after her 08/2024 appt with him??4.?Colon cancer screening?Procedure: COLONOSCOPY (Ordered for 06/17/2024)* with MACsched for 10/18/24 at 11:30 ammiralax * Procedure Codes:?3017F COLOR ECTAL CA SCREEN DOC [id number] Pt scrn tbco and id as [id number] BP SCR NOT PRFRM REC REASON NOS * Follow Up:?prn * * Sign off status: Completed true * Provider:?Dominic Weems MD Date:? 024 Generated for Jose bowman/Jed/Alfred on:?12/29/2024 03:41 PM EDT History and Physical Notes * HPI (History of Present Illness) Category Sub-Category Detail Notes Category Not es incontinence I saw Minoo in followup today in regard to her underlying history of irritable bowel syndrome, personal history of tubular adenomas of the colon, family history of colon cancer, and need for colorectal cancer screening. I last saw Minoo in September of 2023 at which time she underwent a followup screening colonoscopy with removal of multiple tubular adenomas, including a relatively large and flat polyp in the ascending colon. Since that time she has been feeling well but does have intermittent episodes of abdominal pain consistent with her irritable bowel syndrome. Her bowel movements have remained fairly regular but she still has to be careful to avoid constipation. She was seen in the ER March for some abdominal pain and rectal bleeding. However the workup for that, including a CT scan and laboratories, was all negative. She was discharged with some dicyclomine that she does report has helped her in regard to abdominal pain. She had been using it p.r.n. but recently ran out of that. She enjoys a good appetite and denies any significant heartburn or dysphagia. She does remain on her daily omeprazole. She has not noticed any further hematochezia since her ER visit in March and she denies any melena. She denies any other abdominal pains besides the abdominal cramping. She denies any jaundice nor unintentional weight loss. Her family history is notable for a sibling having had colon cancer in his 40s. Examination Category Sub-Category Detail Notes Category Not es General Examination GENERAL APPEARANCE: pleasant , well [...]
== END 2024-12-29 14:25 | disposition home or self-care (01) ==
PROVIDERS: PCP Internal Medicine; Visit Provider Internal Medicine Pulmonary Disease
DX: J44.9 Chronic obstructive pulmonary disease, unspecified (principal); Z99.81 Dependence on supplemental oxygen; Z87.891 Personal history of nicotine dependence
CPT/HCPCS: 99214

== ENCOUNTER → 2024-12-29 13:32 | Outpatient (BNVA) | payer MEDICAID, SELFPAY ==
[2024-07-27 11:31] VITALS: BMI 22.6
== END ==
PROVIDERS: PCP Internal Medicine; Visit Provider Internal Medicine Pulmonary Disease
DX: J44.9 Chronic obstructive pulmonary disease, unspecified (principal); R91.8 Other nonspecific abnormal finding of lung field; F17.210 Nicotine dependence, cigarettes, uncomplicated; Z99.81 Dependence on supplemental oxygen; Z79.899 Other long term (current) drug therapy
CPT/HCPCS: 99212

== ENCOUNTER 2025-01-20 12:37 | Outpatient (REF) | payer MEDICAID, SELFPAY ==
[2024-07-27 11:31] VITALS: BMI 22.6
[2025-01-20 14:51] LABS: Erythrocyte Sedimentation Rate 8 MM/HR (0-20)
[2025-01-20 14:53] LABS: Alanine Aminotransferase 20 U/L (0-31); Albumin Level 4.1 g/dL (3.5-5.0); Alkaline Phosphatase 82 U/L (39-117); Anion Gap 15 (12-20); Aspartate Amino Transferase 24 U/L (5-31); Bilirubin Direct 0.2 mg/dL (0.0-0.5); Bilirubin Total 0.4 mg/dL (0.0-1.0); Blood Urea Nitrogen 11 mg/dL (9-16); Calcium 9.6 mg/dL (8.4-10.2); Carbon Dioxide 23 mmol/L (22-29); Chloride 97 mmol/L (96-108); Estimated Glomerular Filt Rate > 60; Glucose Random 107 mg/dL (60-115); Potassium 4.3 mmol/L (3.3-5.1); Sodium 131 mmol/L (135-145); Total Protein 7.2 g/dL (6.5-8.0)
[2025-01-20 15:20] LABS: Folate 4.8 ng/mL (> or = 4.0); Vitamin B12 279 pg/mL (200-900)
[2025-01-21 09:48] LABS: Lyme Abs Screen <0.90 index
[2025-01-24 22:38] LABS: IgA 305 mg/dL (70-320); IgG 919 mg/dL (600-1540); IgM 184 mg/dL (50-300)
== END 2025-01-20 12:38 | disposition home or self-care (01) ==
LOC: HO.LAB 12:37
PROVIDERS: PCP Internal Medicine; Visit Provider Psychiatry & Neurology Neurology
DX: G62.9 Polyneuropathy, unspecified (principal)
CPT/HCPCS: 36415; 80048; 80076; 82607; 82746; 82784; 85652; 86334; 86617; 86618

== ENCOUNTER 2025-02-18 09:16 | Day surgery (SDC) | payer OTHER, SELFPAY ==
[2024-07-27 11:31] VITALS: BMI 22.6
--- OUTSIDE RECORDS SUMMARY | 2025-01-28 06:11 | XMS_ITS ---
Author Organization [facility] Address [address] [place] [address] Care Team Providers Care Computational Theory Scientist Name Role Phone Alfred Alfaro MD Primary Care Provider Dominic Omalley [facility] [phone] REASON FOR VISIT screening,hx polyps,fam hx colon ca Encounters Encounter Location Date Provider Diagnosis [facility] [place] [address] [place] [phone] 10/18/2024 Dominic Weems Colon cancer scree rupal [...] * LIAM GOMEZEDOB: 0 (64 yo F)Acc No.[id number]:10/18/2024 COLON WITH MAC Patient:?MINOO GOMEZ Provider:?Dominic Weems MD :1960???Age:64 Y???Sex:Female D ate:10/18/2024 Address:[address] [place] [address] Pcp:Alfred Alfaro MD Subjective: * Chief Complaints: * ???1. Screening,hx polyps,fa m hx colon ca. * Medical History:? Objective: * Vitals:? Assessment: * Assessment: 1.?Colon cancer screening - Z12.11 (Primary)???2.?Personal history of colonic polyps - Z86.0100???3.?Family history of colon cancer - Z80.0???4.?Diverticulosis of large intestine without perforation or abscess without bleeding - K57.30???5.?Other hemorrhoids - K64.8??? Plan: * Treatment: * Procedure Codes:?33215 LESIO N REMOVAL COLONOSCOPY * * The named appointment provid er may or may not be the originator of this progress note, and it is not deemed complete until electronically signed by the appointment provider. Sign off status: Pending * Provider:?Dominic Weems MD Date:? 025 Generated for Jose bowman/Jed/eTransmitting on:?01/28/2025 06:11 AM EDT
--- OUTSIDE RECORDS SUMMARY | 2025-01-28 06:11 | XMS_ITS ---
Author Organization [facility] Address [address] [place] [address] Care Team Providers Care Cross Tie Maker Name Role Phone Alfred Alfaro MD Primary Care Provider Dominic Omalley [phone] REASON FOR VISIT dicyclomine Medications Medication SIG (Take, Route, Fr equency, Duration) Notes Start Date End Date Status Dicyclomine HCl 10 MG 1 or 2 capsules Or ally Every 6 hours as needed for abdominal cramps/discomfort for 30 days 06/17/2024 Ac tive Encounters Encounter Location Date Provider Diagnosis [facility] [address] 01/24/2025 Dominic Weems Irritable bowel syndrome with both constipation and diarrhea K58.2 Assessments Encounter Date Diagnosis (ICD Code) Assessment Notes Treatment Notes Treatment Clinical Notes Section Notes 01/24/2025 Irritable bowel syndrome with both constipation and diarrhea (ICD-10 - K58.2) Plan Of Treatment Medication Medication Name Sig Start Date Stop Date Notes Dicyclomine HCl 10 MG 1 or 2 capsules Or ally Every 6 hours as needed for abdominal cramps/discomfort for 30 days 06/17/2024 Progress Notes * LIAM GOMEZEDOB: 0 (64 yo F)Acc No.[id number]:01/24/2025 Patient:?MINOO GOMEZ :1960???Age:64 Y???Sex:Female Address:[address] [place] [address] * Refills? Refill Dicyclomine HCl Capsule, 10 MG, Orally, 30, 1 or 2 capsules, Every 6 hours as needed for abdominal cramps/discomfort, 30 days, Refills=11 * true * Date:? Generated for Jose bowman/Jed/Dylanitting on:?01/28/2025 06:11 AM EDT
--- OUTSIDE RECORDS SUMMARY | 2025-01-28 06:11 | XMS_ITS | Clinical Summary ---
Author Organization [address] [facility] Address [address] [place] [address] Phone Care Team Providers Care Curb Worker Name Role Phone Socorro Hunt MD Primary Care Provider [phone] Allergies Active Allergy Reactions Criticality Noted Date [...] Date Diagnosed Date Chronic obstructive lung disease ([facility] V24, [facility] V28) 12/23/2024 Osteoporosis 12/23/2024 Myocardial infarction ([facility] V24, [facility] V28) 12/23/2024 Overview (12/23/2024): 2014 Lung mass 12/23/2024 [...] Department Care Team Description 12/27/2024 Telephone Neurosurgery [place] [facility] [address] [place] [address] Liv Balderas [place] Appointment (EMG/NCS & Neurology Consult appointment) 12/23/2024 2:30 PM EDT Office Visit [facility] [address] [facility] [address] [place] [address] Guido Kent PA Neuropathy involving [...] Hypertension COPD (chronic obstructive pu lmonary disease) ([facility] V24, [facility] V28) Family History Medical History Relation Name Comments [...] Annual BMP Blood Test 09/07/2022 COVID-19 Vaccine ( - 2023-2 5 season) 2024 09/19/2021, 11/06/2020, [...] topic Insurance MEDICAID - [place] Care Teams Curb Worker Relationship Specialty Start Date End Date Socorro Hunt MD [address] [place] [address] [place] [address] PCP - General Internal Medicine 12/20/24
--- OUTSIDE RECORDS SUMMARY | 2025-01-28 06:11 | XMS_ITS ---
Author Organization [facility] Address [address] [place] [address] Care Team Providers Care Loom Winder Tender Name Role Phone Angelina BILLINGS, Alfred Primary Care Provider Dominic Omalley [phone] Encounters Encounter Location Date Provider Diagnosis [facility] [address] [place] [address] 10/25/2024 Dominic Weems Plan Of Treatment No Information Progress Notes * LIAM GOMEZEDOB: 0 (64 yo F)Acc No.[id number]:10/25/2024 Patient:?GOMEZ, MINOO :1960???Age:64 Y???Sex:Female Address:[address] [place] [address] * true * Date:? Generated for Merissai colby/Jed/eTransmitting on:?01/28/2025 06:11 AM EDT
--- OUTSIDE RECORDS SUMMARY | 2025-01-28 06:11 | XMS_ITS | Patient Health Record ---
Author Organization [facility] Address [address] [place] [address] Care Team Providers Care Fur Cutter Name Role Phone Angelina BILLINGS, Alfred Primary Care Provider Dominic Omalley [phone] Allergies Allergen (clinical drug ingredient) Drug/Non Drug Allergy documented on EMR Reaction Allergy Type Onset Date Status morphine Morphine Sulfate Unknown Drug Allergy Active meperidine Demerol Unknown Drug Allergy Active Blueberries blueberries (uncoded) Unknown Allergy Active Results Component Value Reference Range Notes Pathology Reviewed date:10/26/2024 06:38:13 PM Interpretation: Performing Lab:[facility], [address] [place] [phone] Notes/Report: Name: GomezMinoo Age/Sex: 64/F : 1960 Unit#: [id number] Attend Dr: Dominic Weems MD Re10/18/24 Status : [facility]: [facility] Disch: SPEC : [id number] RECD: 10/18/24 STATUS: GUILLAUME ZARAGOZA NUM: [id number] MICHAEL: 10/18/[address] [facility] [address]: Dominic Weems MD ENTERED: 10/18/24 [...] Care Physicians [address] [place], [place] [id number] oDminic Weems MD [facility] [address] [place] [address] Signed (si gnature on file) Guido Álvarez MD 10/20/24 1105 END OF REPORT Reason For Referral Referring Provider First Name Socorro Referring Provider Last Name Rajesheliud Referring Provider Speciality Internal M edicine Referred Organization [facility] Referred Provider Dominic Weems Referred Address [address] [place] [address],[place] [address],[place], [place],[address], Referred Provider Specialty Gastroentero logy General Notes [...] directed Ora lly Once a day Active Dicyclomine HCl 10 MG 1 or 2 capsules Or ally Every 6 hours as needed for abdominal cramps/discomfort for 30 days 06/17/2024 Active Albuterol Sulfate HFA 108 (90 Base) MCG/ACT 1 puff as needed Inhalation every 4 hrs Active Aspirin 81 MG 1 tablet Orally Once a day Not-Taking Metoprolol Tartrate 100 MG TAKE 1 TABLET BY MOUTH TWICE A DAY Oral for 90 Active Immunizations Vaccine Route Administration Date Status [...] Problem Status W/U Status Risk Notes Problem 429004664 Colon cancer screening (Z12.11) Active confirmed Problem 21434017 Rectal bleeding (K62.5) Active confirmed Problem 576226278 History of adenomatous polyp of colon (Z86.010) Active confirmed Problem Diverticular disease of colon (303708832) Diverticulosis of large intestine without perforation or abscess without bleeding (K57.30) Active confirmed Problem Dysphagia (58878767) Dysphagia (R13.10) Active confirmed Problem 949306514 Family history o f colon cancer (Z80.0) Active confirmed Problem 09875475 Rectal bleed (K62.5) Active confirmed Problem Gastritis (0691911) Gastritis (K29.70) Active confirmed Problem 230571419 Irregular bowel habits (R19.8) Active confirmed Problem Esophageal reflux finding (223372068) Gastroesophageal reflux (K21.9) Active confirmed Problem 57711889 Diarrhea, unspecified type (R19.7) Active confirmed Problem 81751162 Irritable bowel syndrome with both constipation and diarrhea (K58.2) Active confirmed Problem 811844693 Gastroesophageal reflux disease, unspecified whether esophagitis present (K21.9) Active confirmed Problem 72678579 Esophageal dysphagia (R13.19) Active confirmed Vital Signs Blood pressure diastolic 00 mm Hg 06/17/2024 Height 64 in 06/17/2024 Blood pressure systolic 00 mm Hg 06/17/2024 Weight 135 lbs 06/17/2024 BMI 23.17 kg/m2 06/17/2024 Encounters Encounter Location Date Provider Diagnosis [facility] [place] [address] [place], [place] [phone] 10/18/2024 Dominic Weems Colon cancer screeni ng Z12.11 ; Personal history of colonic polyps Z86.0100 ; Family history of colon cancer Z80.0 ; Diverticulosis of large intestine without perforation or abscess without bleeding K57.30 and Other hemorrhoids K64.8 [facility] [address] [place] [address] 06/17/2024 Dominic Weems Irritable bowel syndrome with both constipation and diarrhea K58.2 ; History of adenomatous polyp of colon Z86.010 ; Family history of colon cancer Z80.0 and Colon cancer screening Z12.11 [facility] [address] [place] [address] 2024 Dominic Weems [facility] [address] [place] [phone] 10/25/2024 Dominic Weems [facility] [address] [place] [phone] 01/24/2025 Dominic Weems Irritable bowel syndrome with [...] to keep you advised of her progress. 01/24/2025 Irritable bowel syndrome with both constipation and diarrhea (ICD-10 - K58.2) 10/18/2024 Family history of colon cancer (ICD-10 - Z80.0) 06/17/2024 Family history of colon cancer (ICD-10 - Z80.0) Need clearance from Dr. Ivan after her 08/2024 appt with him Overall, iMnoo appears well considering her ongoing smoking and [...] Start Date Coverage End Date MEDICAID OF [facility] [address] [id number] MINOO GOMEZ Self - patient is the insured Medical (General) History Medical History History ICD Code COPD--wears oxygen for walking--se[facility] Dr. Ivan at [facility] [place] Hypertension AR in 12/2013--had 1 stent placed---fine since Colonoscopies [...]
[2025-02-18] VITALS (9 sets, daily range): BP systolic 111–128; BP diastolic 60–70; PULSE 68–83; RESP 14–20; TEMP 36.6–36.7; O2SAT 91–97; BMI 22.4
--- NOTE | ~2025-02-18 | FL_ITS ---
EXAMINATION: XR LUMBAR PUNCTURE CLINICAL INFORMATION: Peripheral Neuropathy COMPARISON: None available. TECHNIQUE: Following explaining fluoroscopy-guided lumbar puncture procedure, benefits and risk, a written consent was obtained. Patient was placed prone on fluoroscopy table and limited imaging was obtained through the posterior lumbar spine. An optimal site was selected under fluoroscopy to be in marked on the skin. The site marked was cleaned and draped in usual sterile manner. 1% lidocaine was administered at puncture site. A 20-gauge spinal needle was then advanced from the skin intrathecally at the L4-5 disc level. After removing stylet and observing CSF return, patient was quickly placed in left lateral decubitus view and opening CSF pressure was obtained. Subsequently CSF fluid was collected in 4 test tubes and sent to lab. Postprocedure stylet was reintroduced and needle withdrawn. Complete hemostasis achieved at puncture site. Sterile Band-Aid applied postprocedure. FINDINGS: On preliminary fluoroscopy imaging there is mild scoliosis likely positional. The opening CSF pressure measures 8.5 cm of water. Approximately 10.5 ml of clear CSF fluid was collected in 4 test tubes and sent to lab. FLUOROSCOPY TIME: 39 seconds DOSE AREA PRODUCT: 800.4 uGy-m2 (microgray-meter squared) FL/FL guided lumbar puncture LP IMPRESSION: Successful and fluoroscopy-guided lumbar puncture performed at the L4-5 disc levels. Electronically signed by: Bruce Duvall MD 02/18/2025 03:12 PM EDT
[2025-02-18 09:51] LABS: MANUAL DIFF FLAG NO
[2025-02-18 09:54] LABS: Basophils Percent Auto 0.4 % (0-2); Eosinophils Absolute Auto 0.1 X10*3/uL (0.0-0.4); Eosinophils Percent Auto 0.8 % (0-4); Hematocrit 45.2 % (37.0-47.0); Hemoglobin 15.4 g/dl (12.0-16.0); Imm Gran Abs Auto 0.06 X10*3/uL (0.00-0.03); Imm Gran Pct Auto 0.6 % (0.0-0.4); Lymphocytes Absolute Auto 2.8 X10*3/uL (1.2-4.9); Lymphocytes Percent Auto 28.8 % (20-40); Mean Corpuscular HGB Conc 34.1 g/dl (31.0-35.0); Mean Corpuscular Volume 99.8 fL (80.0-98.0); Mean Platelet Volume 8.1 fL (9.4-12.3); Monocytes Absolute Auto 0.7 X10*3/uL (0.1-1.2); Monocytes Percent Auto 6.8 % (2-11); Neutrophils Absolute Auto 6.2 x10*3/uL (2.0-8.3); Neutrophils Percent Auto 62.6 % (45-73); Platelet Count 287 X10*3/uL (160-400); Red Blood Count 4.53 X10*6/uL (4.20-5.50); Red Cell Distribution Width 13.4 % (11.0-16.0); White Blood Count 9.9 X10*3/uL (4.8-10.8)
[2025-02-18 10:04] LABS: Partial Thromboplastin Time 32.5 SEC (26.0-36.8)
[2025-02-18 10:12] LABS: Anion Gap 15 (12-20); Blood Urea Nitrogen 9 mg/dL (9-16); Calcium 9.7 mg/dL (8.4-10.2); Carbon Dioxide 26 mmol/L (22-29); Chloride 98 mmol/L (96-108); Estimated Glomerular Filt Rate > 60; Glucose Random 111 mg/dL (60-115); Potassium 4.4 mmol/L (3.3-5.1); Sodium 135 mmol/L (135-145)
[2025-02-18 13:00] LABS: CSF Appearance Clear, Colorless; CSF Tube # 1
[2025-02-18 13:03] LABS: Glucose CSF 69 mg/dL; Total Protein CSF 32.6 mg/dL (15-45)
[2025-02-18 13:40] LABS: Appearance CSF CLEAR; CSF Monos 11 %; CSF Tube # 4; Color CSF COLORLESS; Lymphocytes CSF 89 %; Red Blood Cell CSF 1 MM*3; White Blood Cell CSF 2 MM*3
[2025-02-19 12:03] LABS: Oligoclonal Serum Yes
[2025-02-21 13:14] LABS: Albumin 3.9 g/dL (3.6-5.1); Albumin, CSF 19.3 mg/dL (8.0-42.0); IgG 846 mg/dL (600-1540); IgG Synthesis Rate -2.1 mg/24 h (-9.9-3.3); IgG, CSF 2.1 mg/dL (0.8-7.7)
[2025-02-22 21:27] LABS: Oligoclonal Banding Absent (Absent)
== END 2025-02-18 13:27 | disposition home or self-care (01) ==
PROVIDERS: Radiology Diagnostic Radiology; PCP Internal Medicine; Visit Provider Psychiatry & Neurology Neurology
PROC: 009U3ZZ Drainage of Spinal Canal, Percutaneous Approach (ICD-10-PCS; CPT 62270; principal; 2025-02-18 11:00)
DX: G62.9 Polyneuropathy, unspecified (principal); J44.9 Chronic obstructive pulmonary disease, unspecified; I10 Essential (primary) hypertension; K21.9 Gastro-esophageal reflux disease without esophagitis; Z79.51 Long term (current) use of inhaled steroids; Z79.899 Other long term (current) drug therapy; Z88.5 Allergy status to narcotic agent; Z98.890 Other specified postprocedural states
CPT/HCPCS: 36415; 62328; 80048; 82042; 82945; 83916; 84157; 85025; 85610; 85730; 87015; 87070; 87205; 89051; J2003

== ENCOUNTER → 2025-02-18 11:18 | Outpatient (BNV) | payer OTHER, SELFPAY ==
[2024-07-27 11:31] VITALS: BMI 22.6
== END ==
PROVIDERS: PCP Internal Medicine; Visit Provider Radiology Diagnostic Radiology
DX: G90.09 Other idiopathic peripheral autonomic neuropathy (principal)
CPT/HCPCS: 62328

== ENCOUNTER 2025-03-04 12:28 | Outpatient (AMB) | payer OTHER, SELFPAY ==
[2024-07-27 11:31] VITALS: BMI 22.6
--- NOTE | 2025-03-04 12:49 | MHC.OFFVIS ---
Vital Signs 03/04/25 12:50 Height 5 ft 5 in Weight 134 lb BMI 22.3 BP 110/72 Blood Pressure Location Rt brachial Position Sitting Pulse 103 H Pulse Source Pulse Oximeter Pulse Oximetry (%) 95 Oxygen Delivery Method Nasal Cannula Intake Visit Reasons: copd Allergies meperidine [From DEMEROL] Allergy (Severe, Verified 02/18/25 10:28) NAUSEA & VOMITING,SWELLING morphine [MORPHINE] Allergy (Mild, Verified 02/18/25 10:28) NAUSEA & VOMITING, SWELLING HPI HPI copd: Details: 64-year-old lady, recent 35+ pack-year smoker, followed for severe to very severe supplemental oxygen 2-3L dependent COPD and pulmonary nodules.? She has been using BrezTri, Symbicort, theophylline, and albuterol MDI.? She can no longer afford theophylline. She also has been using lorazepam twice a day for anxiety to reduce hyperventilation and air trapping with good effect. Her follow-up lung cancer screening CT chest showed no worrisome pulmonary nodules. Her insurance is set to change to [employer] around the 22 of March. [facility] Medical History High cholesterol HTN (hypertension) Myocardial infarct COPD (chronic obstructive pulmonary disease) Surgical History Hx of cataract extraction History of lung surgery Hx of heart artery stent Hx of excision of mass History of nasal surgery H/O colonoscopy History of esophagogastroduodenoscopy (EGD) H/O: hysterectomy Hx of section Social History Household Members: Spouse and Significant Other Household Members Other:: Are you a primary youth care worker to a significant other at home: No Do you presently have visiting nurse or other home services: No Patient Tobacco Use Status: Current everyday Tobacco user Tobacco use type: Cigarette Cigarettes Per Day: 10 Years Smoked: 35+ Second Hand Smoke Exposure: No Review of Systems Const Denies daytime sleepiness, Denies excessive sweating, Denies fatigue, Denies fever(s), Denies lethargy, Denies malaise, Denies night sweats, Denies snoring and Denies weight loss Eyes Denies blurry vision and Denies itchy eyes ENT Denies nasal congestion, Denies post nasal drip, Denies sinus pain, Denies sinus pressure and Denies other ( Thrush) Card Denies chest pain, Denies pedal edema, Denies dyspnea, Denies orthopnea and Denies paroxysmal nocturnal dyspnea Resp Denies cough, Denies hemoptysis, Denies excessive phlegm production, Denies dyspnea, Denies snoring and Denies wheezing GI Denies abdominal pain and Denies heartburn Musc Denies myalgias, Denies arthralgias and Denies joint swelling Skin/Breast Denies rash Neuro Denies memory loss and Denies seizure-like activity Psych Denies abnormal sleep pattern, Denies anxiety and Denies memory loss Endo Denies excessive sweating, Denies fatigue and Denies heat intolerance Anders/Lymph Denies easy bruising Aller/Immun Denies itchy eyes, Denies seasonal rhinorrhea and Denies wheezing Physical Exam Vital Signs: Last Vital Signs Pulse 103 H 03/04/25 12:50 BP 110/72 03/04/25 12:50 Pulse Ox 95 03/04/25 12:50 Oxygen Delivery Method Nasal Cannula 03/04/25 12:50 BMI result Body Mass Index 22.3 Const General: no acute distress and alert Nutritional Appearance: not obese Orientation/consciousness: Other orientation findings ( oriented) HEENT Head: Yes atraumatic Eyes General: appearance normal, both eyes and all related structures Sclerae: sclerae normal EOM: EOMs intact bilaterally Neck Neck: Yes supple Lymphatic: no lymphadenopathy noted Resp Effort & Inspection: normal respiratory effort and no use of accessory muscles Auscultation: clear to auscultation bilaterally Cardio Rate: regular rate Rhythm: regular rhythm Heart sounds: no gallops, no murmurs and no rubs Skin General skin exam: other ( warm) Extrem General: No clubbing, No cyanosis and No edema Assessment & Plan Assessment & Plan (1) COPD (chronic obstructive pulmonary disease): Code(s): J44.9 - Chronic obstructive pulmonary disease, unspecified Category: Medical Plan: Reasonable baseline control on Breztri, Symbicort albuterol MDI/nebs, theophylline, and prednisone 10 mg daily. Continue current regimen. (2) Supplemental oxygen dependent: Code(s): Z99.81 - Dependence on supplemental oxygen Category: Medical Plan: Continue supplemental oxygen to maintain O2 saturation of 89-93%. (3) Personal history of nicotine dependence: Code(s): Z87.891 - Personal history of nicotine dependence Category: Medical Plan: Continue with yearly screening, next in July of 2025. Coding Level of Care Code Est Pt Level 4 (55755) Complex EM visit Add On G2211 Diagnoses COPD (chronic obstructive pulmonary disease) J44.9 Supplemental oxygen dependent Z99.81 Personal history of nicotine dependence Z87.891
[2025-03-04 12:50] VITALS: BP 110/72; PULSE 103; O2SAT 95; BMI 22.3
--- OUTSIDE RECORDS SUMMARY | 2025-03-04 13:03 | XMS_ITS | Clinical Summary ---
Author Organization 175 [facility] Address [address] [place] [address] Phone Care Team Providers Care Analysis Reporting Developer Name Role Phone Socorro Hunt MD Primary Care Provider [phone] Allergies Active Allergy Reactions Criticality Noted Date [...] Date Diagnosed Date Chronic obstructive lung disease ([facility]24, [facility] [place] V28) 12/23/2024 Osteoporosis 12/23/2024 Myocardial infarction ([facility] V24, [facility] V28) 12/23/2024 Overview (12/23/2024): 2014 Lung mass [...] Department Care Team Description 12/27/2024 Telephone Neurosurgery [place] - [place] [address] [facility] [address] [place] [address] Liv Balderas [place] Appointment (EMG/NCS & Neurology Consult appointment) 12/23/2024 2:30 PM EDT Office Visit [facility] 175 [facility] [address] [place] [address] Guido Kent PA Neuropathy involving [...] Hypertension COPD (chronic obstructive pu lmonary disease) ([facility] V24, [facility] V28) Family History Medical History Relation Name [...] topic Insurance MEDICAID - [place] Care Teams Analysis Reporting Developer Relationship Specialty Start Date End Date Socorro Hunt MD [address] [place] [address] [place] [address] PCP - General Internal Medicine 12/20/24
== END 2025-03-04 13:30 | disposition home or self-care (01) ==
PROVIDERS: PCP Internal Medicine; Visit Provider Internal Medicine Pulmonary Disease
DX: J44.9 Chronic obstructive pulmonary disease, unspecified (principal); Z99.81 Dependence on supplemental oxygen; Z87.891 Personal history of nicotine dependence
CPT/HCPCS: 99214; G2211

== ENCOUNTER → 2025-03-04 12:28 | Outpatient (BNVA) | payer MEDICAID, SELFPAY ==
[2024-07-27 11:31] VITALS: BMI 22.6
== END ==
PROVIDERS: PCP Internal Medicine; Visit Provider Internal Medicine Pulmonary Disease
DX: J44.9 Chronic obstructive pulmonary disease, unspecified (principal); Z99.81 Dependence on supplemental oxygen; Z87.891 Personal history of nicotine dependence
CPT/HCPCS: 99212

== ENCOUNTER 2025-03-14 07:11 | Inpatient (IN) | payer OTHER, SELFPAY ==
[2024-07-27 11:31] VITALS: BMI 22.6
[2025-03-14] VITALS (10 sets, daily range): BP systolic 131–149; BP diastolic 61–91; PULSE 82–100; RESP 20–26; TEMP 36.9–37.3; O2SAT 90–98; BMI 23.5; BMI 24.8
--- NOTE | 2025-03-14 | ECG_ITS ---
Test Reason : dyspnea Blood Pressure : */* mmHG Vent. Rate : 80 BPM Atrial Rate : 80 BPM P-R Int : 174 ms QRS Dur : 82 ms QT Int : 380 ms P-R-T Axes : 66 60 62 degrees QTcB Int : 438 ms Normal sinus rhythm Normal ECG When compared with ECG of 16-Nov-2001 20:55, Left posterior fascicular block is no longer Present Minimal criteria for Inferior infarct are no longer Present Nonspecific T wave abnormality no longer evident in Inferior leads T wave inversion no longer evident in Anterolateral leads Referred By: Jer Pierce Electronically Signed By: ANGELA ARCHULETA
--- NOTE | ~2025-03-14 | XR_ITS ---
EXAMINATION: XR CHEST CLINICAL INFORMATION: sob/cp COMPARISON: CT chest 08/05/2024. Chest radiograph on 1023. TECHNIQUE: Frontal view of the chest was obtained. FINDINGS: The cardiac, hilar, and mediastinal contours are normal. Aortic mural calcification. Left upper lobe postop suture line noted, stable. Diffuse pulmonary hyperaeration bilaterally. Lungs otherwise clear. No pneumothorax or effusion. No focal osseous or soft tissue abnormality. Degenerative changes throughout the spine. Healed bilateral rib fractures present. XR/XR chest 1V IMPRESSION: 1. Hyperaeration suggestive of COPD. 2. Similar appearing Postop changes left upper lung. 3. No definite active disease. Electronically signed by: Kashif Price MD 03/14/2025 08:57 AM EDT
--- NOTE | 2025-03-14 07:19 | ED.GENADULT ---
HPI - General Adult General Chief complaint: Dyspnea Stated complaint: SOB/COPD Time Seen by Provider: 03/14/25 07:15 History of Present Illness ED Provider: Stan VINSON narrative: The patient is a 64-year-old woman with a history of COPD. She still smokes. She has a home oxygen. She also has a home nebulizer machine. The patient comes to the emergency room by ambulance after experiencing worsening shortness of breath over the last 3 days. She has tried to treat herself at home without success. Today she hope that she might be able to wait till the pulmonary office opened but ultimately she felt too short of breath and called 911. She feels she has been wheezing a great deal. She does not think she has had a fever. She feels like she has something in her chest that she ?can not cough up. ?. No pain or swelling in her legs. Related Data Home Medications ?Medication ?Instructions ?Recorded ?Confirmed amlodipine 5 mg tablet 5 mg PO DAILY blood pressure 07/28/20 02/18/25 evolocumab 140 mg/mL subcutaneous 140 mg subcut Q2W 07/28/20 10/09/23 pen injector levalbuterol HCl 1.25 mg/3 mL 1.25 mg inhalation Q4H PRN 07/28/20 10/09/23 solution for nebulization Shortness Of Breath Or Wheezing losartan 100 mg tablet 100 mg PO DAILY 07/28/20 02/18/25 metoprolol tartrate 100 mg tablet 100 mg PO BID 07/28/20 10/09/23 clonidine HCl 0.2 mg tablet 0.2 mg PO BID 07/30/21 10/09/23 gabapentin 300 mg capsule 300 mg PO TID 07/30/21 10/09/23 omeprazole 20 mg capsule,delayed 20 mg PO DAILY 07/30/21 02/18/25 release amlodipine 2.5 mg tablet 2.5 mg PO DAILY 03/14/25 budesonide 160 mcg-glycopyr 9 2 inh inhalation BID 03/14/25 mcg-formot 4.8 mcg/actuation HFA inhaler (Breztri Aerosphere) budesonide-formoterol HFA 160 2 puff inhalation BID 03/14/25 mcg-4.5 mcg/actuation aerosol inhaler (Symbicort) theophylline 200 mg 200 mg PO DAILY 03/14/25 capsule,extended release 24 hr (Demond-24) Previous Rx's ?Medication ?Instructions ?Recorded albuterol sulfate 2.5 mg/3 mL 2.5 mg (3 mL) inhalation Q4H PRN 08/30/22 (0.083 %) solution for nebulization for wheezing #150 mL guaifenesin 600 mg tablet, 600 mg PO Q12H #60 tabs 09/11/23 extended release 12 hr albuterol sulfate 90 mcg/actuation 2 puff inhalation Q4-6H PRN for 04/07/24 aerosol inhaler wheezing #20.1 ea dicyclomine 10 mg capsule 10 mg PO QID PRN abdominal pain 04/12/24 #30 caps ondansetron HCl 4 mg tablet 4 mg PO Q8H PRN nausea and 04/12/24 vomiting #14 tabs benzonatate 200 mg capsule 200 mg PO BID PRN cough 30 days 11/12/24 #60 caps levofloxacin 750 mg tablet 750 mg PO DAILY #7 tabs 11/17/24 ensifentrine 3 mg/2.5 mL 2.5 ml inhalation BID #150 mL 12/29/24 suspension for nebulization (Ohtuvayre) prednisone 5 mg tablet 5 mg PO BID #60 tabs 12/29/24 lorazepam 1 mg tablet (Ativan) 1 mg PO BID PRN anxiety 30 days 02/04/25 #60 tabs Allergies Allergy/AdvReac Type Severity Reaction Status Date / Time meperidine (From DEMEROL) Allergy Severe NAUSEA & Verified 03/14/25 07:21 VOMITING,SWELLING morphine (MORPHINE) Allergy Mild NAUSEA & Verified 03/14/25 07:21 VOMITING, SWELLING Review of Systems Review of Systems: Yes all other systems are reviewed and are negative [facility] Past Medical History Medical History High cholesterol HTN (hypertension) Myocardial infarct COPD (chronic obstructive pulmonary disease) Surgical History Hx of cataract extraction History of lung surgery Hx of heart artery stent Hx of excision of mass History of nasal surgery H/O colonoscopy History of esophagogastroduodenoscopy (EGD) H/O: hysterectomy Hx of section Social History Social History Household Members: Spouse and Significant Other Household Members Other:: Are you a primary medicare interviewer to a significant other at home: No Do you presently have visiting nurse or other home services: No Patient Tobacco Use Status: Current everyday Tobacco user Tobacco use type: Cigarette Cigarettes Per Day: 10 Years Smoked: 35+ Smoked in Last 30 Days: Yes Second Hand Smoke Exposure: No Use of substances other than those prescribed or required for medical reasons: No Advance Directives: No Advance Directives Information Provided: Yes Do you have a plan to hurt others: No Plan Physical Exam ED Vital Signs: Vital Signs - 24 hr 03/14/25 07:19 03/14/25 07:37 03/14/25 08:07 Temperature 98.4 F Pulse Rate 83 82 84 Respiratory Rate 20 26 H 23 H Blood Pressure 140/70 H 144/75 H Pulse Oximetry 92 97 Oxygen Delivery Method Nasal Cannula Nasal Cannula Oxygen Flow Rate 4 03/14/25 09:19 Temperature Pulse Rate 84 Respiratory Rate 26 H Blood Pressure Pulse Oximetry Oxygen Delivery Method Oxygen Flow Rate BMI result Body Mass Index 23.5 Const Other: The patient is a very chronically ill-appearing 64-year-old. She looks older than her age. She looks mildly to moderately short of breath. Orientation/consciousness: patient oriented x3 HENMT Other: The face is symmetrical. ?Mucous membranes moist. Eyes Other: Pupils are round equal, conjunctivae are clear, extraocular movements intact Neck Neck: Yes full ROM and Yes no JVD Resp Other: Mild tachypnea, mild increased work of breathing, inspiratory and expiratory wheezes bilaterally Cardio Rate: regular rate Rhythm: regular rhythm Heart sounds: S1 normal heart sound present and S2 normal heart sound present GI Other: Abdomen is soft and nontender Skin Other: The patient's skin is dry. She has extensive chronic bruising to her extremities. Neuro General: patient oriented x3, tone normal, moves all extremities, no focal motor deficits and CN's II-XI intact bilaterally Extrem Other: There is no calf swelling or tenderness. No asymmetry. No peripheral edema. Medications Administered Generic Name Dose Route Start Last Admin Trade Name Freq PRN Reason Stop Dose Admin Albuterol/Ipratropium 3 ml 03/14/25 12:00 03/14/25 11:27 Albuterol/Iprat 2.5/0.5mg 3 Ml Ampul.Neb INHALE 3 ml RQ4H WHILE AWAKE RUIZ Administration Enoxaparin Sodium 40 mg 03/14/25 11:00 03/14/25 11:29 Enoxaparin Sodium 40 Mg/0.4 Ml Syringe SUBCUT 40 mg Q24H RUIZ Administration Sodium Chloride 1,000 mls @ 80 mls/hr 03/14/25 10:30 03/14/25 11:22 Ns IVCONT 80 mls/hr .[id number] RUIZ Administration Methylprednisolone Sodium Succinate 40 mg 03/14/25 10:30 03/14/25 11:29 Methylprednisolone Sod Succ 40 Mg Vial IVPUSH 40 mg Q8H RUIZ Administration Sodium Chloride 3 ml 03/14/25 16:00 03/14/25 11:34 0.9 % Sodium Chloride Flush 3 Ml Syringe IVFLUSH Not Given QSHIFT RUIZ Discontinued Medications Generic Name Dose Route Start Last Admin Trade Name Freq PRN Reason Stop Dose Admin Ceftriaxone Sodium 1 gm 03/14/25 07:41 03/14/25 08:02 Ceftriaxone Sodium 1 Gm Vial IVPUSH 03/14/25 07:42 1 gm ONCE ONE Administration Albuterol Sulfate 5 mg/ 0 mg 03/14/25 07:32 03/14/25 07:37 Albuterol/Ipratropium 3 ml INHALE 03/14/25 07:33 1 each ONCE ONE Administration Levalbuterol HCl 3.75 mg/ 0 mg 03/14/25 09:17 03/14/25 09:18 Ipratropium [place] 0.5 mg INHALE 03/14/25 09:18 1 dose ONCE ONE Administration Magnesium Sulfate 2 gm in 50 mls @ 150 mls/hr 03/14/25 07:37 03/14/25 08:11 Magnesium Sulfate/H2o IV 03/14/25 07:56 Infused ONCE ONE Infusion Azithromycin 500 mg/ Sodium 250 mls @ 125 mls/hr 03/14/25 07:41 03/14/25 08:02 Chloride IV 03/14/25 09:40 125 mls/hr ONCE ONE Administration Methylprednisolone Sodium Succinate 80 mg 03/14/25 07:37 03/14/25 07:51 Methylprednisolone Sod Succ 125 Mg Vial IVPUSH 03/14/25 07:38 80 mg ONCE ONE Administration Ondansetron HCl 4 mg 03/14/25 08:00 03/14/25 08:02 Ondansetron Hcl 4 Mg/2 Ml Vial IVPUSH 03/14/25 08:01 4 mg ONCE ONE Administration Medical Decision Making Medical Decision Making [facility] Narrative: The patient is a 64-year-old woman with fairly significant COPD who presents with a worsening shortness of breath. She has wheezes throughout. She has never been hospitalized for her COPD in the past a, or at least not recently. She received bronchodilator treatments, IV steroids, IV magnesium. No significant improvement in her wheezing. She was started on ceftriaxone and azithromycin as well. She will be admitted for further care. Lab Data 03/14/25 08:04 03/14/25 08:04 Labs: Lab Results 03/14/25 03/14/25 03/14/25 Range/Units 07:53 08:04 08:12 WBC 15.5 H (4.8-10.8) X10*3/uL RBC 4.40 (4.20-5.50) X10*6/uL Hgb 15.0 (12.0-16.0) g/dl Hct 42.9 (37.0-47.0) % MCV 97.5 (80.0-98.0) fL MCH 34.1 H (27.0-33.0) pg MCHC 35.0 (31.0-35.0) g/dl RDW 12.8 (11.0-16.0) % Plt Count 272 (160-400) X10*3/uL MPV 8.0 L (9.4-12.3) fL Immature Gran % (Auto) 0.4 (0.0-0.4) % Neut % (Auto) 81.7 H (45-73) % Lymph % (Auto) 10.3 L (20-40) % [place] % (Auto) 7.4 (2-11) % Eos % (Auto) 0.0 (0-4) % Baso % (Auto) 0.2 (0-2) % Lymph # (Auto) 1.6 (1.2-4.9) X10*3/uL [place] # (Auto) 1.2 (0.1-1.2) X10*3/uL Eos # (Auto) 0.0 (0.0-0.4) X10*3/uL Baso # (Auto) 0.0 (0.0-0.2) X10*3/uL Abs Immat Gran (auto) 0.06 H (0.00-0.03) X10*3/uL Absolute Neuts (auto) 12.7 H (2.0-8.3) x10*3/uL Absolute Nucleated RBC 0.000 (0.0-0.012) X10*3/uL Nucleated RBC % (auto) 0.0 (0.0-0.2) /100WBC VBG pH 7.34 (7.32-7.43) VBG pCO2 55 mmHg VBG pO2 128 mmHg VBG HCO3 30 H (22-26) mmol/L VBG O2 Saturation 99.0 % VBG Base Excess 3.0 mmol/L Sodium 121 L (135-145) mmol/L Potassium 4.4 (3.3-5.1) mmol/L Chloride 85 L (96-108) mmol/L Carbon Dioxide 27 (22-29) mmol/L Anion Gap 13 (12-20) BUN 5 L (9-16) mg/dL Creatinine 0.55 (0.5-1.4) mg/dL Estim Creat Clear Calc 81.7 Estimated GFR > 60 Random Glucose 129 H (60-115) mg/dL Lactic Acid 0.8 (0.5-2.0) mmol/L Calcium 9.3 (8.4-10.2) mg/dL Total Bilirubin 0.4 (0.0-1.0) mg/dL AST 24 (5-31) U/L ALT 13 (0-31) U/L Alkaline Phosphatase 94 (39-117) U/L Troponin I High Sens < 2.7 (<3.5-17.0) ng/L C-Reactive Protein 3.48 H (< or = 0.50) mg/dL Total Protein 7.5 (6.5-8.0) g/dL Albumin 4.4 (3.5-5.0) g/dL Influenza Type A (PCR) NEGATIVE (Negative) Influenza Type B (PCR) NEGATIVE (Negative) RSV RNA Qual (PCR) NEGATIVE (Negative) SARS-CoV-2 RNA (RT-PCR) NEGATIVE (Negative) Independent Interpretation I performed an independent interpretation of an: EKG Interpretation: EKG at 0720 shows normal sinus rhythm at 80 beats per minute. It is an unremarkable EKG. No ischemic changes. Critical Care Time Critical Care Time Critical Care Time: Yes Total Critical Care Time: 35 Attestation: The patient was critically ill with a high probability of imminent or life-threatening deterioration. ?I spent greater than 30 minutes of discontinuous time evaluating the patient, delivering critical care at the bedside, discussing evaluating data with consultants. ?Critical care time does not include time spent performing separately billable procedures or teaching. ?Time spent performing critical care with 35 minutes. Discharge Plan Discharge Clinical Impression: Acute exacerbation of chronic obstructive pulmonary disease Patient Disposition: Admitted As Inpatient
[2025-03-14] MEDS: Albuterol Sulfate 5 MG, Albuterol/Iprat 2.5/0.5MG 3 ML 3 ML INHALE (07:37)
[2025-03-14] MEDS: Magnesium Sulfate/H2O 2 GM/50 ML PIGGYBACK IV (07:51)
[2025-03-14] MEDS: cefTRIAXone sodium 1 GM VIAL IVPUSH (08:02)
[2025-03-14] MEDS: Azithromycin 500 MG in 0.9 % Sodium Chloride 250 ML 125 MG IV (08:02)
[2025-03-14] MEDS: ondansetron HCL 4 MG/2 ML VIAL IVPUSH (08:02)
[2025-03-14 08:09] LABS: MANUAL DIFF FLAG NO
[2025-03-14 08:12] LABS: Basophils Percent Auto 0.2 % (0-2); Hematocrit 42.9 % (37.0-47.0); Imm Gran Abs Auto 0.06 X10*3/uL (0.00-0.03); Imm Gran Pct Auto 0.4 % (0.0-0.4); Lymphocytes Absolute Auto 1.6 X10*3/uL (1.2-4.9); Lymphocytes Percent Auto 10.3 % (20-40); Mean Corpuscular Hemoglobin 34.1 pg (27.0-33.0); Mean Corpuscular Volume 97.5 fL (80.0-98.0); Monocytes Absolute Auto 1.2 X10*3/uL (0.1-1.2); Monocytes Percent Auto 7.4 % (2-11); Neutrophils Absolute Auto 12.7 x10*3/uL (2.0-8.3); Neutrophils Percent Auto 81.7 % (45-73); Platelet Count 272 X10*3/uL (160-400); Red Cell Distribution Width 12.8 % (11.0-16.0); White Blood Count 15.5 X10*3/uL (4.8-10.8)
[2025-03-14 08:13] LABS: Venous Blood Gas Refer to POC result
[2025-03-14 08:16] LABS: VBG HCO3 30 mmol/L (22-26); VBG pCO2 55 mmHg; VBG pH 7.34 (7.32-7.43); VBG pO2 128 mmHg
--- OUTSIDE RECORDS SUMMARY | 2025-03-14 08:27 | XMS_ITS | Clinical Summary ---
Author Organization 175 [facility] Address [address] [place] [address] Phone Care Team Providers Care Disability Specialist Name Role Phone Socorro Hunt MD Primary Care Provider [phone] Allergies Active Allergy Reactions Criticality Noted Date [...] Date Diagnosed Date Chronic obstructive lung disease ([facility] V24, [facility] [place] V28) 12/23/2024 Osteoporosis 12/23/2024 Myocardial infarction ([facility] V24, [facility] V28) 12/23/2024 Overview (12/23/2024): [...] Department Care Team Description 12/27/2024 Telephone Neurosurgery [place] - [place] 175 [facility] [address] [place] [address] Liv Balderas [place] Appointment (EMG/NCS & Neurology Consult appointment) 12/23/2024 2:30 PM EDT Office Visit [facility] 175 [facility] [address] [place] [address] Guido Kent PA Neuropathy involving [...] Hypertension COPD (chronic obstructive pu lmonary disease) ([facility] V24, [facility] V28) Family History Medical [...] topic Insurance MEDICAID - [place] Care Teams Disability Specialist Relationship Specialty Start Date End Date Socorro Hunt MD [address] [place] [address] [place] [address] PCP - General Internal Medicine 12/20/24
[2025-03-14 08:30] LABS: Alanine Aminotransferase 13 U/L (0-31); Albumin Level 4.4 g/dL (3.5-5.0); Alkaline Phosphatase 94 U/L (39-117); Anion Gap 13 (12-20); Aspartate Amino Transferase 24 U/L (5-31); Bilirubin Total 0.4 mg/dL (0.0-1.0); Blood Urea Nitrogen 5 mg/dL (9-16); Calcium 9.3 mg/dL (8.4-10.2); Carbon Dioxide 27 mmol/L (22-29); Chloride 85 mmol/L (96-108); Creatinine Clr Calc Pharmacy 81.7; Estimated Glomerular Filt Rate > 60; Glucose Random 129 mg/dL (60-115); Potassium 4.4 mmol/L (3.3-5.1); Sodium 121 mmol/L (135-145); Total Protein 7.5 g/dL (6.5-8.0)
[2025-03-14 08:32] LABS: Lactic Acid 0.8 mmol/L (0.5-2.0)
[2025-03-14 08:37] LABS: Troponin-I High Sensitivity < 2.7 ng/L (<3.5-17.0)
[2025-03-14 08:52] LABS: C Reactive Protein 3.48 mg/dL (< or = 0.50)
[2025-03-14 09:18] LABS: Influenza A PCR NEGATIVE (Negative); Influenza B PCR NEGATIVE (Negative); Resp Syncy Virus RNA Qual PCR NEGATIVE (Negative); SARS COV2 PCR INHOUSE NEGATIVE (Negative)
[2025-03-14] MEDS: levalbuterol HCL 3.75 MG, Ipratropium Bromide 0.5 MG INHALE (09:18)
--- NOTE | 2025-03-14 10:29 | PM.IMHP ---
History of Present Illness Date of Service: 03/14/25 Chief Complaint: shortnes of breath The patient is a 64-year-old female with a past medical history significant for COPD and chronic respiratory failure with hypoxia on 2-3 L supplemental oxygen, pulmonary nodules, hypertension, hypercholesterolemia, prior HI who presents to the emergency room with a 3-4 day history of progressive shortness of breath and fatigue. The patient reports hypoxia at home on her baseline supplemental oxygen into the 70s. She reports increasing her supplemental oxygen to 5 L with minimal improvement in her oxygenation. She reports nonproductive cough. She denies any fevers or chills. She reports poor oral intake with decreased appetite. Due to ongoing symptoms she presented to the emergency room. She reports her last COPD hospitalization was more than 2 years ago. In the ED, the patient was treated with multiple rounds of nebulized bronchodilators, IV systemic steroids, IV antibiotics, IV magnesium, but remained symptomatic and hence will be admitted for further care. Further workup also revealed hyponatremia with a serum sodium of 121. Review of Systems Review of Systems: Negative except HPI/interval history. [facility] Medical History High cholesterol HTN (hypertension) Myocardial infarct COPD (chronic obstructive pulmonary disease) Surgical History Hx of cataract extraction History of lung surgery Hx of heart artery stent Hx of excision of mass History of nasal surgery H/O colonoscopy History of esophagogastroduodenoscopy (EGD) H/O: hysterectomy Hx of section Social History Household Members: Spouse Household Members Other:: Housing: House Are you a primary career services manager to a significant other at home: No Do you presently have visiting nurse or other home services: No Patient Tobacco Use Status: Current someday Tobacco user Tobacco use type: Cigarette Cigarettes Per Day: 7 Years Smoked: 35+ Smoked in Last 30 Days: Yes e-Cigarette/Vaping Use: Never Used Patient Interested in Nicotine Replacement: No Patient Given Instructions on How to Stop Smoking: No Second Hand Smoke Exposure: No Use of substances other than those prescribed or required for medical reasons: No Have you been hit, kicked, punched, or otherwise hurt by someone within the past year? If so, by whom?: No Do you feel safe in your current relationship?: Yes Is there a partner from a previous relationship who is making you feel unsafe now?: No Are you made to feel afraid or neglected: No Advance Directives: No Advance Directives Information Provided: Yes Do you have a plan to hurt others: No Plan Recently lost weight without trying: No How much weight loss: Not applicable Eating poorly because of decreased appetite: No Nutrition screen score: 0 Nutrition Risks: No Nutritional Risk Patient : No : No Poor oral hygiene: No Meds Allergies Allergy/AdvReac Type Severity Reaction Status Date / Time meperidine (From DEMEROL) Allergy Severe NAUSEA & Verified 03/14/25 07:21 VOMITING,SWELLING morphine (MORPHINE) Allergy Mild NAUSEA & Verified 03/14/25 07:21 VOMITING, SWELLING Active Medications: Current Medications Acetaminophen (Acetaminophen 325 Mg Tablet) 650 mg PO Q6H PRN PRN Reason: Pain, Mild 1-3,fever,headache Melatonin (Melatonin 3 Mg Tablet) 6 mg PO BEDTIME PRN PRN Reason: Insomnia Sodium Chloride (0.9 % Sodium Chloride Flush 3 Ml Syringe) [address] [facility] Home Medications ?Medication ?Instructions ?Recorded ?Confirmed ?Last Taken ?Type amlodipine 5 mg tablet 5 mg PO DAILY blood pressure 07/28/20 03/14/25 03/14/25 History levalbuterol HCl 1.25 mg/3 mL 1.25 mg inhalation Q4H PRN 07/28/20 03/14/25 Unknown History solution for nebulization Shortness Of Breath Or Wheezing losartan 100 mg tablet 100 mg PO DAILY 07/28/20 03/14/25 03/14/25 History metoprolol tartrate 100 mg tablet 100 mg PO BID 07/28/20 03/14/25 03/14/25 History clonidine HCl 0.2 mg tablet 0.2 mg PO BID 07/30/21 03/14/25 03/14/25 History omeprazole 20 mg capsule,delayed 20 mg PO DAILY@0630 07/30/21 03/14/25 03/14/25 History release amlodipine 2.5 mg tablet 2.5 mg PO DAILY 03/14/25 03/14/25 03/14/25 History aspirin 81 mg tablet,delayed 81 mg PO DAILY 03/14/25 03/14/25 03/14/25 History release budesonide 160 mcg-glycopyr 9 2 inh inhalation BID 03/14/25 03/14/25 03/14/25 History mcg-formot 4.8 mcg/actuation HFA inhaler (Breztri Aerosphere) budesonide-formoterol HFA 160 2 puff inhalation BID 03/14/25 03/14/25 03/14/25 History mcg-4.5 mcg/actuation aerosol inhaler (Symbicort) theophylline 200 mg 200 mg PO DAILY 03/14/25 03/14/25 03/14/25 History capsule,extended release 24 hr (Demond-24) Physical Exam Vital Signs and Narrative: Vital Signs: Last Vital Signs Temp 98.4 F 03/14/25 07:19 Pulse 84 03/14/25 09:19 Resp 26 H 03/14/25 09:19 BP 144/75 H 03/14/25 08:07 Pulse Ox 97 03/14/25 08:07 O2 Del Method Nasal Cannula 03/14/25 08:07 O2 Flow Rate 4 03/14/25 08:07 Oxygen Flow Rate 3 03/14/25 07:19 BMI result Body Mass Index 23.5 Const: Other: Constitutional - Awake and Alert, chronically ill appearing Eyes - PERRLA, EOMI Cardiovascular - S1S2, RRR, No edema Respiratory - coarse sounds globally with RR around 22; Sats 92-94% on 4L Gastrointestinal - NT / ND; +BS; No rebound or guarding - No CVA tenderness Extremities - no calf tenderness bilaterally, no swelling Musculoskeletal - Normal inspection, normal ROM Skin - Warm/Dry Neurological - Alert & oriented x3, No focal deficit Psychological - Appropriate affect Results Labs 03/14/25 08:04 03/14/25 14:07 Labs: Laboratory Results - last 24 hr 03/14/25 03/14/25 03/14/25 07:53 08:04 08:12 MCV 97.5 MCH 34.1 H MCHC 35.0 RDW 12.8 Plt Count 272 MPV 8.0 L Immature Gran % (Auto) 0.4 Neut % (Auto) 81.7 H Lymph % (Auto) 10.3 L [place] % (Auto) 7.4 Eos % (Auto) 0.0 Baso % (Auto) 0.2 Lymph # (Auto) 1.6 [place] # (Auto) 1.2 Eos # (Auto) 0.0 Baso # (Auto) 0.0 Abs Immat Gran (auto) 0.06 H Absolute Neuts (auto) 12.7 H Absolute Nucleated RBC 0.000 Nucleated RBC % (auto) 0.0 VBG pH 7.34 VBG pCO2 55 VBG pO2 128 VBG HCO3 30 H VBG O2 Saturation 99.0 VBG Base Excess 3.0 Anion Gap 13 Estim Creat Clear Calc 81.7 Estimated GFR > 60 Random Glucose 129 H Lactic Acid 0.8 Calcium 9.3 Total Bilirubin 0.4 AST 24 ALT 13 Alkaline Phosphatase 94 Troponin I High Sens < 2.7 C-Reactive Protein 3.48 H Total Protein 7.5 Albumin 4.4 Influenza Type A (PCR) NEGATIVE Influenza Type B (PCR) NEGATIVE RSV RNA Qual (PCR) NEGATIVE SARS-CoV-2 RNA (RT-PCR) NEGATIVE Imaging Radiologist's Impressions: Impressions Chest X-Ray 03/14/25 07:23 IMPRESSION: 1. Hyperaeration suggestive of COPD. 2. Similar appearing Postop changes left upper lung. 3. No definite active disease. Electronically signed by: Kashif Price MD 03/14/2025 08:57 AM EDT RP Assessment and Plan (1) COPD (chronic obstructive pulmonary disease): Status: Acute Plan 64 yo F with with COPD, chronic resp failure and steroid dependant who presents with a several day history of progressive SOB, fatigue and non-productive cough. She is also noted to have hypoNa. 1. Acute on chronic COPD exacerbation, chronic resp failure with hypoxia CXR neg for acute findings, but CRP elevated will cover empirically with iv rocephin continue steroids and updrafts scheduled +PRN continue baseline meds 2. HypoNa likely hypovoluemic (pt endores decreased appetite) check urine studies gentle hydration, will raise slowly over the next 24-48 hours recheck BMP later today 3. HTN BP wnl this AM hold antihypertensives for now 4.HLD statin Full Code DVT pptx - lovenox Pt with acute copd + severe hypoNa requiring close monitoring and slow correction, compounded by underlying end state COPD/chronic resp failure therefore expected to require at a min 2 midnights in the hospital for management/treatment/monitoring response. Hence, will be admitted as inpatient. Med rec pending -- resume baseline meds as appropriately Quality Stroke Does the patient have a stroke diagnosis?: No VTE Prior VTE?: No VTE Risk Level:: Medical - moderate - high VTE Device Contraindication: N/A - Device Ordered VTE Drug Contraindication: N/A - Med Ordered
[2025-03-14] MEDS: 0.9 % Sodium Chloride 1,000 ML 80 ML IVCONT (11:22)
[2025-03-14] MEDS: Albuterol/Iprat 2.5/0.5MG 3 ML AMPUL.NEB INHALE ×3 (11:27→18:56)
[2025-03-14] MEDS: Enoxaparin Sodium 40 MG/0.4 ML SYRINGE SUBCUT (11:29)
[2025-03-14] MEDS: methylPREDNISolone Sod Succ 40 MG VIAL IVPUSH ×2 (11:29→18:30)
--- NOTE | 2025-03-14 11:49 | PHA.MEDREC ---
Addendum entered by Aguilar Montero RPh 03/14/25 11:59: MED REC CHECKED BY [facility] Original Note: Pharmacy Consult ? Medication Reconciliation Pharmacy has completed the medication reconciliation. Spoke to patient to confirm med list. Patient had a list of her medications with her. Patient states she is no longer taking Dicyclomine 10 mg, Gabapentin 300 mg, and Zofran 4 mg. Patient last had her medications today.
[2025-03-14 14:33] LABS: Anion Gap 14 (12-20); Blood Urea Nitrogen 6 mg/dL (9-16); Calcium 8.9 mg/dL (8.4-10.2); Carbon Dioxide 26 mmol/L (22-29); Chloride 88 mmol/L (96-108); Creatinine Clr Calc Pharmacy 85.9; Estimated Glomerular Filt Rate > 60; Glucose Random 173 mg/dL (60-115); Potassium 4.6 mmol/L (3.3-5.1); Sodium 123 mmol/L (135-145)
[2025-03-14] MEDS: Acetaminophen 325 MG TABLET 650 MG PO ×2 (14:59→20:56)
[2025-03-14 15:05] LABS: Sodium Urine Random < 20.0 mmol/L
[2025-03-14 15:06] LABS: Osmolality Urine 159 mosm/kg (373-1093)
[2025-03-14] MEDS: LORazepam 1 MG TABLET PO (16:32)
--- NOTE | 2025-03-14 17:24 | HO.SKINPHOTO ---
Location: Category: right buttock Stage: Length: Width: Depth: cm Location: Category: Stage: Length: Width: Depth: cm Location: Category: Stage: Length: Width: Depth: cm Location: Category: Stage: Length: Width: Depth: cm Location: Category: Stage: Length: Width: Depth: cm Location: Category: Stage: Length: Width: Depth: cm
[2025-03-14] MEDS: guaiFENesin 100 MG/5 ML 5 ML LIQUID PO ×2 (18:30→23:57)
[2025-03-14] MEDS: Benzonatate 100 MG CAPSULE PO (18:36)
[2025-03-14] MEDS: Metoprolol Tartrate 100 MG TABLET PO (20:28)
[2025-03-14] MEDS: cloNIDine HCL 0.2 MG TABLET PO (20:28)
[2025-03-14 20:35] LABS: Anion Gap 14 (12-20); Blood Urea Nitrogen 6 mg/dL (9-16); Calcium 8.7 mg/dL (8.4-10.2); Carbon Dioxide 24 mmol/L (22-29); Chloride 91 mmol/L (96-108); Creatinine Clr Calc Pharmacy 90.7; Estimated Glomerular Filt Rate > 60; Glucose Random 156 mg/dL (60-115); Potassium 3.8 mmol/L (3.3-5.1); Sodium 125 mmol/L (135-145)
[2025-03-15] MEDS: methylPREDNISolone Sod Succ 40 MG VIAL IVPUSH ×3 (02:09→18:22)
[2025-03-15] MEDS: 0.9 % Sodium Chloride 1,000 ML 50 ML IVCONT ×2 (02:09→19:53)
[2025-03-15 03:40] VITALS: BP 162/75; PULSE 90; RESP 16; TEMP 36.3; O2SAT 94
[2025-03-15] MEDS: Benzonatate 100 MG CAPSULE PO ×2 (04:19→22:42)
[2025-03-15] MEDS: guaiFENesin 100 MG/5 ML 5 ML LIQUID PO ×3 (04:19→18:22)
[2025-03-15] MEDS: Omeprazole 20 MG CAPSULE.DR PO (05:32)
[2025-03-15 06:21] LABS: Hematocrit 40.7 % (37.0-47.0); Hemoglobin 13.8 g/dl (12.0-16.0); Mean Corpuscular HGB Conc 33.9 g/dl (31.0-35.0); Mean Corpuscular Hemoglobin 33.8 pg (27.0-33.0); Mean Corpuscular Volume 99.8 fL (80.0-98.0); Mean Platelet Volume 8.1 fL (9.4-12.3); Platelet Count 268 X10*3/uL (160-400); Red Blood Count 4.08 X10*6/uL (4.20-5.50); Red Cell Distribution Width 12.5 % (11.0-16.0); White Blood Count 11.9 X10*3/uL (4.8-10.8)
[2025-03-15 07:12] LABS: Anion Gap 13 (12-20); Blood Urea Nitrogen 6 mg/dL (9-16); Calcium 9.2 mg/dL (8.4-10.2); Carbon Dioxide 29 mmol/L (22-29); Chloride 92 mmol/L (96-108); Estimated Glomerular Filt Rate > 60; Glucose Random 131 mg/dL (60-115); Potassium 4.9 mmol/L (3.3-5.1); Sodium 129 mmol/L (135-145)
[2025-03-15 07:14] VITALS: BP 137/62; PULSE 81; RESP 18; TEMP 36.6; O2SAT 94
[2025-03-15] MEDS: Albuterol/Iprat 2.5/0.5MG 3 ML AMPUL.NEB INHALE ×2 (07:48→15:39)
[2025-03-15] MEDS: Metoprolol Tartrate 100 MG TABLET PO ×2 (08:25→19:53)
[2025-03-15] MEDS: Aspirin Enteric Coated 81 MG TABLET.DR PO (08:25)
[2025-03-15] MEDS: Losartan Potassium 50 MG TABLET 100 MG PO (08:25)
[2025-03-15] MEDS: 0.9 % Sodium Chloride Flush 3 ML SYRINGE IVFLUSH ×2 (08:26→18:22)
[2025-03-15] MEDS: amLODIPine Besylate 5 MG TABLET PO (08:26)
[2025-03-15] MEDS: amLODIPine Besylate 2.5 MG TABLET PO (08:26)
[2025-03-15] MEDS: cloNIDine HCL 0.2 MG TABLET PO ×2 (08:26→19:53)
[2025-03-15] MEDS: LORazepam 1 MG TABLET PO ×2 (08:34→19:57)
--- NOTE | 2025-03-15 08:36 | P.PNIM_ITS ---
Subjective Subjective Date of Service: 03/15/25 Interval History: f/u on copd with acute exacerbation, overall feels better, luns still very tigh Physical Exam 2 Vital Signs: Vital Signs: Last Vital Signs Temp 97.9 F 03/15/25 07:14 Pulse 81 03/15/25 07:14 Resp 18 03/15/25 07:14 BP 137/62 03/15/25 07:14 Pulse Ox 94 03/15/25 07:14 O2 Del Method Nasal Cannula 03/15/25 07:14 O2 Flow Rate 3 03/15/25 07:14 Oxygen Flow Rate 3 03/14/25 07:19 BMI result Body Mass Index 24.8 Const: Other: Constitutional - Awake and Alert, chronically ill appearing Cardiovascular - S1S2, RRR, No edema Respiratory - lungs are very tight still Gastrointestinal - NT / ND; +BS; No rebound or guarding - No CVA tenderness Extremities - no calf tenderness bilaterally, no swelling Musculoskeletal - Normal inspection, normal ROM Skin - Warm/Dry Neurological - Alert & oriented x3, No focal deficit Psychological - Appropriate affect Objective Data Active Medications Acetaminophen (Acetaminophen 325 Mg Tablet) 650 mg PO Q6H PRN PRN Reason: Pain, Mild 1-3,fever,headache Last Admin: 03/14/25 20:56 Dose: 650 mg Documented By: GAVIN Albuterol/Ipratropium (Albuterol/Iprat 2.5/0.5mg 3 Ml Ampul.Neb) 3 ml INHALE RQ4H WHILE AWAKE [facility] Last Admin: 03/15/25 07:48 Dose: 3 ml Documented By: EVANS Amlodipine Besylate (Amlodipine Besylate 2.5 Mg Tablet) 2.5 mg PO DAILY [facility]; Protocol Last Admin: 03/15/25 08:26 Dose: 2.5 mg Documented By: CHUY Amlodipine Besylate (Amlodipine Besylate 5 Mg Tablet) 5 mg PO DAILY [facility]; Protocol Last Admin: 03/15/25 08:26 Dose: 5 mg Documented By: CHUY Aspirin (Aspirin Enteric Coated 81 Mg Tablet.) 81 mg PO DAILY [facility] Last Admin: 03/15/25 08:25 Dose: 81 mg Documented By: CHUY Benzonatate (Benzonatate 100 Mg Capsule) 100 mg PO TID PRN PRN Reason: Cough Last Admin: 03/15/25 04:19 Dose: 100 mg Documented By: GAVIN Calcium Carbonate (Calcium Carbonate 750 Mg Tab.Chew) 750 mg PO Q4H PRN PRN Reason: Heartburn Ceftriaxone Sodium (Ceftriaxone Sodium 1 Gm Vial) 1 gm IVPUSH Q24H RUIZ Clonidine HCl (Clonidine Hcl 0.2 Mg Tablet) 0.2 mg PO BID RUIZ; Protocol Last Admin: 03/15/25 08:26 Dose: 0.2 mg Documented By: CHUY Enoxaparin Sodium (Enoxaparin Sodium 40 Mg/0.4 Ml Syringe) 40 mg SUBCUT Q24H RUIZ Last Admin: 03/14/25 11:29 Dose: 40 mg Documented By: MARCELO Guaifenesin (Guaifenesin 100 Mg/5 Ml 5 Ml Liquid) 5 ml PO Q4H PRN PRN Reason: Cough Last Admin: 03/15/25 04:19 Dose: 5 ml Documented By: GAVIN Sodium Chloride (Ns) 1,000 mls @ 50 mls/hr IVCONT .Q20H RUIZ Last Admin: 03/15/25 02:09 Dose: 50 mls/hr Documented By: GAVIN Lorazepam (Lorazepam 1 Mg Tablet) 1 mg PO BID PRN PRN Reason: Anxiety Last Admin: 03/15/25 08:34 Dose: 1 mg Documented By: CHUY Losartan Potassium (Losartan Potassium 50 Mg Tablet) 100 mg PO DAILY RUIZ; Protocol Last Admin: 03/15/25 08:25 Dose: 100 mg Documented By: CHUY Magnesium Hydroxide (Milk Of Magnesia 30 Ml Oral.Susp) 30 ml PO DAILY PRN PRN Reason: Constipation Melatonin (Melatonin 3 Mg Tablet) 6 mg PO BEDTIME PRN PRN Reason: Insomnia Methylprednisolone Sodium Succinate (Methylprednisolone Sod Succ 40 Mg Vial) 40 mg IVPUSH Q8H RUIZ Last Admin: 03/15/25 02:09 Dose: 40 mg Documented By: GAVIN Metoprolol Tartrate (Metoprolol Tartrate 100 Mg Tablet) 100 mg PO BID RUIZ; Protocol Last Admin: 03/15/25 08:25 Dose: 100 mg Documented By: CHUY Non-Formulary Medication (Theophylline [Demond-24]) 200 mg PO DAILY RUIZ Omeprazole (Omeprazole 20 Mg Capsule.) 20 mg PO DAILY@0630 [facility] Last Admin: 03/15/25 05:32 Dose: 20 mg Documented By: GAVIN Sodium Chloride (0.9 % Sodium Chloride Flush 3 Ml Syringe) 3 ml IVFLUSH QSHIFT [facility] Last Admin: 03/15/25 08:26 Dose: 3 ml Documented By: CHUY Labs 03/15/25 05:42 03/15/25 05:42 Labs: Laboratory Results - last 24 hr 03/14/25 03/14/25 03/14/25 07:53 08:04 14:07 MCV MCH MCHC RDW Plt Count MPV Absolute Nucleated RBC Nucleated RBC % (auto) Anion Gap 14 Estim Creat Clear Calc 85.9 Estimated GFR > 60 Random Glucose 173 H Calcium 8.9 Troponin I High Sens < 2.7 C-Reactive Protein 3.48 H Urine Osmolality Ur Random Sodium Influenza Type A (PCR) NEGATIVE Influenza Type B (PCR) NEGATIVE RSV RNA Qual (PCR) NEGATIVE SARS-CoV-2 RNA (RT-PCR) NEGATIVE 03/14/25 03/14/25 03/15/25 14:42 20:07 05:42 MCV 99.8 H MCH 33.8 H MCHC 33.9 RDW 12.5 Plt Count 268 MPV 8.1 L Absolute Nucleated RBC 0.000 Nucleated RBC % (auto) 0.0 Anion Gap 14 13 Estim Creat Clear Calc 90.7 98.0 Estimated GFR > 60 > 60 Random Glucose 156 H 131 H Calcium 8.7 9.2 Troponin I High Sens C-Reactive Protein Urine Osmolality 159 L Ur Random Sodium < 20.0 Influenza Type A (PCR) Influenza Type B (PCR) RSV RNA Qual (PCR) SARS-CoV-2 RNA (RT-PCR) Assessment and Plan (1) Acute exacerbation of chronic obstructive pulmonary disease: Status: Acute Plan 64 yo F with with COPD, chronic resp failure and steroid dependant who presents with a several day history of progressive SOB, fatigue and non-productive cough. She is also noted to have hypoNa. 1. Acute on chronic COPD exacerbation, chronic resp failure with hypoxia CXR neg for acute findings, but CRP elevated covering empirically with iv rocephin continue steroids and updrafts scheduled +PRN continue baseline meds 2. HypoNa, chronic likely hypovoluemic (pt endores decreased appetite) check urine studies gentle hydration, will raise slowly over the next 24-48 hours consider nephro consult 3. HTN BP wnl this AM continue clonidine, losartan and metoprolol 4.HLD statin Full Code DVT pptx - lovenox anticipated d/c in a day Quality Stroke Does the patient have a stroke diagnosis?: No VTE Prior VTE?: No VTE Risk Level:: Medical - moderate - high VTE Device Contraindication: N/A - Device Ordered VTE Drug Contraindication: N/A - Med Ordered
[2025-03-15] MEDS: cefTRIAXone sodium 1 GM VIAL IVPUSH (10:26)
[2025-03-15] MEDS: Enoxaparin Sodium 40 MG/0.4 ML SYRINGE SUBCUT (10:27)
--- NOTE | 2025-03-15 10:36 | MHC.CM.PN ---
CM MET WITH PT AT BEDSIDE. PT LIVES WITH SPOUSE AND IS FUNCTIONALLY INDEP. PT HAS HOME 02 RX AT [address] VIA [facility]. PT DECLINES COMPLETING A HCP AT THIS TIME. PCP DR. TRAN DP: HOME, NO SERVICES ANTICIPATED. PT HAS OWN [facility] HOME. CM WILL CONTINUE TO FOLLOW FOR ANY CHANGE TO DC PLAN/NEEDS.
--- NOTE | 2025-03-15 13:36 | HO.WOUND ---
Wound Consult: Initial 64yr old?female admitted to [facility] on 03/14/25- See progress notes and H&P for detailed history.? Wound consult placed for Right buttock.? Patient agreeable to assessment and photo documentation.? Patient reports she has had the wound for approximately one month and has been treating with topical triple antibiotic ointment and a cover dressing prior to arrival. Denies pain and reports the wound bed is improving. denies seeking treatment for the wound from outside provider. Right buttock Etiology: ?Resurfacing stage 2 Pressure injury ?Present on Admission Measurements: 2cm x 2cm x 0.1cm Wound Bed: resurfacing red pink tissue Drainage / Odor: None Edges: ? well defined Denice wound: MASD intergluteal and red pigmentation - blanchable ? No Induration, Fluctuance or Warmth noted Pain: denies Goals of Treatment: ? Off load and foam dressing to allow for continued moist wound healing Recommendations: 1. Turn and Reposition every 2 hours and as needed for patient comfort.? Use pillows or wedges to support off loading positions. 2. Off Load all bony prominences with use of pillows and heel boots if needed.? Apply Preventative foams where needed. ? 3. Monitor for incontinence and moisture control, use barrier creams when needed for prevention and treatment. 4. Provide adequate and supplemental nutrition.? 5. Order low air loss mattress. 6. When applicable maintain blood glucose levels per Providers order. Right Buttock - Off Load Pressure with Q2 hr turns and use of pillows - Routine cleansing.? Apply skin prep allow to dry.? Cover with foam dressing to aid in off loading and protection from friction. Change every 3 days and PRN. Re-consult wound care Nurse for wound deterioration or wound changes.
[2025-03-15 13:42] VITALS: BMI 24.8
--- NOTE | 2025-03-15 13:46 | MHC.CLN ---
PT WITH INCREASED NUTRITION RISK R/T PRESSURE INJURY PO 100% X1 MEAL REGULAR DIET IN PLACE RECOMMEND ADDING ENSURE BID TO PROMOTE WOUND HEALING SUPP TO PROVIDE 700KCALS, 40G PROTEIN MONITOR PO INTAKE AND ENCOURAGE SUPPLEMENT SEE ALSO FULL CLINICAL NUTRITION ASSESSMENT
[2025-03-15 15:08] VITALS: BP 100/58; PULSE 82; RESP 20; TEMP 36.6; O2SAT 96
[2025-03-15 15:40] VITALS: PULSE 77; RESP 18; O2SAT 99
[2025-03-15 19:19] VITALS: BP 125/60; PULSE 76; RESP 18; TEMP 36.9; O2SAT 96
[2025-03-16] VITALS (8 sets, daily range): BP systolic 116–151; BP diastolic 59–74; PULSE 67–84; RESP 14–24; TEMP 36.1–36.6; O2SAT 90–97
[2025-03-16] MEDS: guaiFENesin 100 MG/5 ML 5 ML LIQUID PO ×2 (02:08→21:29)
[2025-03-16] MEDS: methylPREDNISolone Sod Succ 40 MG VIAL IVPUSH ×3 (02:08→17:55)
[2025-03-16] MEDS: Melatonin 3 MG TABLET 6 MG PO (02:12)
[2025-03-16] MEDS: Albuterol/Iprat 2.5/0.5MG 3 ML AMPUL.NEB INHALE ×4 (03:22→19:36)
--- NOTE | 2025-03-16 03:48 | PC.NURSE ---
Pt c/o hard time breathing resp came up and gave a treatment with not much relief.Lungs have exp wheezes and crackles at the bases 02sat-94% on 3.5L. notified ordered to stop IV fluids.
[2025-03-16] MEDS: Omeprazole 20 MG CAPSULE.DR PO (05:48)
[2025-03-16] MEDS: Metoprolol Tartrate 100 MG TABLET PO ×2 (07:55→20:02)
[2025-03-16] MEDS: Aspirin Enteric Coated 81 MG TABLET.DR PO (07:55)
[2025-03-16] MEDS: cloNIDine HCL 0.2 MG TABLET PO ×2 (07:55→20:02)
[2025-03-16] MEDS: amLODIPine Besylate 5 MG TABLET PO (07:56)
[2025-03-16] MEDS: amLODIPine Besylate 2.5 MG TABLET PO (07:56)
[2025-03-16] MEDS: Losartan Potassium 50 MG TABLET 100 MG PO (07:56)
[2025-03-16] MEDS: 0.9 % Sodium Chloride Flush 3 ML SYRINGE IVFLUSH ×3 (07:59→21:30)
--- NOTE | 2025-03-16 08:00 | P.PNIM_ITS ---
Subjective Subjective Date of Service: 03/16/25 Interval History: f/u on copd with acute exacerbation, she report having hard time breathing in last lnight but seems better this morning, no hypoxia Physical Exam 2 Vital Signs: Vital Signs: Last Vital Signs Temp 97.9 F 03/16/25 06:45 Pulse 76 03/16/25 07:12 Resp 16 03/16/25 07:12 BP 136/61 03/16/25 06:45 Pulse Ox 97 03/16/25 06:45 O2 Del Method Nasal Cannula 03/16/25 06:45 O2 Flow Rate 3.5 03/16/25 06:45 Oxygen Flow Rate 3 03/14/25 07:19 BMI result Body Mass Index 24.8 Const: Other: Constitutional - Awake and Alert, chronically ill appearing Cardiovascular - S1S2, RRR, No edema Respiratory - good air movment, who very faint wheeze Gastrointestinal - NT / ND; +BS; No rebound or guarding - No CVA tenderness Extremities - no calf tenderness bilaterally, no swelling Musculoskeletal - Normal inspection, normal ROM Skin - Warm/Dry Neurological - Alert & oriented x3, No focal deficit Psychological - Appropriate affect Objective Data Active Medications Acetaminophen (Acetaminophen 325 Mg Tablet) 650 mg PO Q6H PRN PRN Reason: Pain, Mild 1-3,fever,headache Last Admin: 03/14/25 20:56 Dose: 650 mg Documented By: GAVIN Albuterol/Ipratropium (Albuterol/Iprat 2.5/0.5mg 3 Ml Ampul.Neb) 3 ml INHALE RQ4H WHILE AWAKE [facility] Last Admin: 03/16/25 07:11 Dose: 3 ml Documented By: YANET Amlodipine Besylate (Amlodipine Besylate 2.5 Mg Tablet) 2.5 mg PO DAILY [facility]; Protocol Last Admin: 03/16/25 07:56 Dose: 2.5 mg Documented By: TUSHAR Amlodipine Besylate (Amlodipine Besylate 5 Mg Tablet) 5 mg PO DAILY [facility]; Protocol Last Admin: 03/16/25 07:56 Dose: 5 mg Documented By: TUSHAR Aspirin (Aspirin Enteric Coated 81 Mg Tablet.) 81 mg PO DAILY [facility] Last Admin: 03/16/25 07:55 Dose: 81 mg Documented By: TUSHAR Benzonatate (Benzonatate 100 Mg Capsule) 100 mg PO TID PRN PRN Reason: Cough Last Admin: 03/15/25 22:42 Dose: 100 mg Documented By: ALANNAH Calcium Carbonate (Calcium Carbonate 750 Mg Tab.Chew) 750 mg PO Q4H PRN PRN Reason: Heartburn Ceftriaxone Sodium (Ceftriaxone Sodium 1 Gm Vial) 1 gm IVPUSH Q24H [facility] Last Admin: 03/15/25 10:26 Dose: 1 gm Documented By: CHUY Clonidine HCl (Clonidine Hcl 0.2 Mg Tablet) 0.2 mg PO BID [facility]; Protocol Last Admin: 03/16/25 07:55 Dose: 0.2 mg Documented By: TUSHAR Enoxaparin Sodium (Enoxaparin Sodium 40 Mg/0.4 Ml Syringe) 40 mg SUBCUT Q24H [facility] Last Admin: 03/15/25 10:27 Dose: 40 mg Documented By: CHUY Guaifenesin (Guaifenesin 100 Mg/5 Ml 5 Ml Liquid) 5 ml PO Q4H PRN PRN Reason: Cough Last Admin: 03/16/25 02:08 Dose: 5 ml Documented By: ALANNAH Lorazepam (Lorazepam 1 Mg Tablet) 1 mg PO BID PRN PRN Reason: Anxiety Last Admin: 03/15/25 19:57 Dose: 1 mg Documented By: ALANNAH Losartan Potassium (Losartan Potassium 50 Mg Tablet) 100 mg PO DAILY [facility]; Protocol Last Admin: 03/16/25 07:56 Dose: 100 mg Documented By: TUSHAR Magnesium Hydroxide (Milk Of Magnesia 30 Ml Oral.Susp) 30 ml PO DAILY PRN PRN Reason: Constipation Melatonin (Melatonin 3 Mg Tablet) 6 mg PO BEDTIME PRN PRN Reason: Insomnia Last Admin: 03/16/25 02:12 Dose: 6 mg Documented By: ALANNAH Methylprednisolone Sodium Succinate (Methylprednisolone Sod Succ 40 Mg Vial) 40 mg IVPUSH Q8H [facility] Last Admin: 03/16/25 02:08 Dose: 40 mg Documented By: ALANNAH Metoprolol Tartrate (Metoprolol Tartrate 100 Mg Tablet) 100 mg PO BID [facility]; Protocol Last Admin: 03/16/25 07:55 Dose: 100 mg Documented By: TUSHAR Pt Owned Med ( Theophylline 200mg Er Capsule) 1 each PO DAILY [facility] Last Admin: 03/16/25 07:59 Dose: 1 each Documented By: TUSHAR Omeprazole (Omeprazole 20 Mg Capsule.Dr) 20 mg PO DAILY@0630 [facility] Last Admin: 03/16/25 05:48 Dose: 20 mg Documented By: ALANNAH Sodium Chloride (0.9 % Sodium Chloride Flush 3 Ml Syringe) 3 ml IVFLUSH QSHIFT [facility] Last Admin: 03/16/25 07:59 Dose: 3 ml Documented By: TUSHAR Labs 03/15/25 05:42 03/15/25 05:42 Labs: Laboratory Results - last 24 hr 03/14/25 03/14/25 03/14/25 07:53 08:04 14:07 MCV MCH MCHC RDW Plt Count MPV Absolute Nucleated RBC Nucleated RBC % (auto) Anion Gap 14 Estim Creat Clear Calc 85.9 Estimated GFR > 60 Random Glucose 173 H Calcium 8.9 Troponin I High Sens < 2.7 C-Reactive Protein 3.48 H Urine Osmolality Ur Random Sodium Influenza Type A (PCR) NEGATIVE Influenza Type B (PCR) NEGATIVE RSV RNA Qual (PCR) NEGATIVE SARS-CoV-2 RNA (RT-PCR) NEGATIVE 03/14/25 03/14/25 03/15/25 14:42 20:07 05:42 MCV 99.8 H MCH 33.8 H MCHC 33.9 RDW 12.5 Plt Count 268 MPV 8.1 L Absolute Nucleated RBC 0.000 Nucleated RBC % (auto) 0.0 Anion Gap 14 13 Estim Creat Clear Calc 90.7 98.0 Estimated GFR > 60 > 60 Random Glucose 156 H 131 H Calcium 8.7 9.2 Troponin I High Sens C-Reactive Protein Urine Osmolality 159 L Ur Random Sodium < 20.0 Influenza Type A (PCR) Influenza Type B (PCR) RSV RNA Qual (PCR) SARS-CoV-2 RNA (RT-PCR) Microbiology Microbiology Results: Microbiology 03/14/25 07:59 Blood Culture - Preliminary Blood - Venous No growth after 24 hours. 03/14/25 07:53 Blood Culture - Preliminary Blood - Venous No growth after 24 hours. Assessment and Plan (1) Acute exacerbation of chronic obstructive pulmonary disease: Status: Acute Plan 64 yo F with with COPD, chronic resp failure and steroid dependant who presents with a several day history of progressive SOB, fatigue and non-productive cough. She is also noted to have hypoNa. 1. Acute on chronic COPD exacerbation, chronic resp failure with hypoxia CXR neg for acute findings, but CRP elevated covering empirically with iv rocephin continue steroids and updrafts scheduled +PRN continue baseline meds 2. HypoNa, appear acute on chronic, level has steadily increased likely hypovoluemic (pt endores decreased appetite) Urine osmo 150, urine sodium <20, suggesting volume depletion was on IVF briefly and stopped, continue monitoring consider nephro consult if worsening 3. HTN, BP wnl this AM continue clonidine, losartan and metoprolol 4.HLD statin Full Code DVT pptx - lovenox anticipated d/c in a day Quality Stroke Does the patient have a stroke diagnosis?: No VTE Prior VTE?: No VTE Risk Level:: Medical - moderate - high VTE Device Contraindication: N/A - Device Ordered VTE Drug Contraindication: N/A - Med Ordered
[2025-03-16 08:48] LABS: Anion Gap 13 (12-20); Blood Urea Nitrogen 9 mg/dL (9-16); Calcium 8.6 mg/dL (8.4-10.2); Carbon Dioxide 27 mmol/L (22-29); Chloride 92 mmol/L (96-108); Estimated Glomerular Filt Rate > 60; Glucose Random 164 mg/dL (60-115); Sodium 128 mmol/L (135-145)
[2025-03-16] MEDS: cefTRIAXone sodium 1 GM VIAL IVPUSH (10:26)
[2025-03-16] MEDS: Enoxaparin Sodium 40 MG/0.4 ML SYRINGE SUBCUT (10:26)
--- NOTE | 2025-03-16 11:08 | P.CDIM_ITS ---
PROVIDER RESPONSE TEXT: To clarify, the appropriate diagnosis supported by the clinical indicators: Pressure injury Stage 2 right buttock: suspexted QUERY TEXT: PHYSICIAN'S DOCUMENTATION REQUEST Date of Query: 03/16/2025 09:07 AM EDT Patient Name: Connie Le Admit Date: 03/14/2025 Dear Alex Abdalla MD, A review of the medical record indicates additional documentation may be needed. Please review below and update the documentation accordingly. Clinical Indicators: Wound care notes 03/15/25 - Resurfacing Stage 2 Pressure Injury Right buttock - Present on Admission. Off load and foam dressing to allow for continued moist wound healing. Based on the above, could you please provide further information regarding the ulcer/wound/injury: Pressure injury Stage 2 right buttock possible, probable, suspected, cannot rule out etc. Other specified Other (explain) Clinically unable to determine (explain) Thank you, Dorothy Dykes, CCS, CDIS Use of terms such as suspected, likely, concern for, or probable (associated with a specific diagnosis that is being evaluated, monitored, or treated as if it exists) are acceptable and can be coded in the inpatient setting, when documented at the time of discharge. Please use your independent medical judgment in providing your response. THIS QUERY IS PART OF THE PERMANENT MEDICAL RECORD
--- NOTE | 2025-03-16 12:35 | PM.CNNEP ---
History of Present Illness Reason for Consult Consult date: 03/16/25 Chief Complaint Chief complaint: Shortness of breath History of Present Illness Narrative: 64 y/o female with past medical history significant for COPD and chronic respiratory failure with hyoxia on supplemental O2. Review of Systems Constitutional: Reports no additional constitutional complaints Cardiovascular: Denies chest pain, Denies leg edema, Denies lightheadedness and Reports dyspnea Respiratory: Reports dyspnea Gastrointestinal: Denies abdominal pain, Denies diarrhea, Denies nausea and Denies vomiting Genitourinary: Denies hematuria, Denies difficulty voiding, Denies dysuria and Denies flank pain Musculoskeletal: Denies back pain and Denies arthralgias Skin/Breast: Denies rash PMFSH Past Medical History Medical History High cholesterol HTN (hypertension) Myocardial infarct COPD (chronic obstructive pulmonary disease) Surgical History Surgical History Hx of cataract extraction History of lung surgery Hx of heart artery stent Hx of excision of mass History of nasal surgery H/O colonoscopy History of esophagogastroduodenoscopy (EGD) H/O: hysterectomy Hx of section Social History Social History Household Members: Spouse Household Members Other:: Housing: House Are you a primary care attendant to a significant other at home: No Do you presently have visiting nurse or other home services: No Patient Tobacco Use Status: Current someday Tobacco user Tobacco use type: Cigarette Cigarettes Per Day: 7 Years Smoked: 35+ Smoked in Last 30 Days: Yes e-Cigarette/Vaping Use: Never Used Patient Interested in Nicotine Replacement: No Patient Given Instructions on How to Stop Smoking: No Second Hand Smoke Exposure: No Use of substances other than those prescribed or required for medical reasons: No Currently Displaying Signs/Symptoms of Drug Intoxication Withdrawal: No Have you been hit, kicked, punched, or otherwise hurt by someone within the past year? If so, by whom?: No Do you feel safe in your current relationship?: Yes Is there a partner from a previous relationship who is making you feel unsafe now?: No Are you made to feel afraid or neglected: No Advance Directives: No Advance Directives Information Provided: Yes Do you have a plan to hurt others: No Plan Recently lost weight without trying: No How much weight loss: Not applicable Eating poorly because of decreased appetite: No Nutrition screen score: 0 Nutrition Risks: No Nutritional Risk Patient : No : No Poor oral hygiene: No service: No Meds Allergies Allergy/AdvReac Type Severity Reaction Status Date / Time meperidine (From DEMEROL) Allergy Severe NAUSEA & Verified 03/14/25 07:21 VOMITING,SWELLING morphine (MORPHINE) Allergy Mild NAUSEA & Verified 03/14/25 07:21 VOMITING, SWELLING Active Medications: Current Medications Acetaminophen (Acetaminophen 325 Mg Tablet) 650 mg PO Q6H PRN PRN Reason: Pain, Mild 1-3,fever,headache Last Admin: 03/14/25 20:56 Dose: 650 mg Albuterol/Ipratropium (Albuterol/Iprat 2.5/0.5mg 3 Ml Ampul.Neb) 3 ml INHALE RQ4H WHILE AWAKE [facility] Last Admin: 03/16/25 11:45 Dose: 3 ml Amlodipine Besylate (Amlodipine Besylate 2.5 Mg Tablet) 2.5 mg PO DAILY [facility]; Protocol Last Admin: 03/16/25 07:56 Dose: 2.5 mg Amlodipine Besylate (Amlodipine Besylate 5 Mg Tablet) 5 mg PO DAILY [facility]; Protocol Last Admin: 03/16/25 07:56 Dose: 5 mg Aspirin (Aspirin Enteric Coated 81 Mg Tablet.Dr) 81 mg PO DAILY [facility] Last Admin: 03/16/25 07:55 Dose: 81 mg Benzonatate (Benzonatate 100 Mg Capsule) 100 mg PO TID PRN PRN Reason: Cough Last Admin: 03/15/25 22:42 Dose: 100 mg Calcium Carbonate (Calcium Carbonate 750 Mg Tab.Chew) 750 mg PO Q4H PRN PRN Reason: Heartburn Ceftriaxone Sodium (Ceftriaxone Sodium 1 Gm Vial) 1 gm IVPUSH Q24H [facility] Last Admin: 03/16/25 10:26 Dose: 1 gm Clonidine HCl (Clonidine Hcl 0.2 Mg Tablet) 0.2 mg PO BID [facility]; Protocol Last Admin: 03/16/25 07:55 Dose: 0.2 mg Enoxaparin Sodium (Enoxaparin Sodium 40 Mg/0.4 Ml Syringe) 40 mg SUBCUT Q24H [facility] Last Admin: 03/16/25 10:26 Dose: 40 mg Guaifenesin (Guaifenesin 100 Mg/5 Ml 5 Ml Liquid) 5 ml PO Q4H PRN PRN Reason: Cough Last Admin: 03/16/25 02:08 Dose: 5 ml Lorazepam (Lorazepam 1 Mg Tablet) 1 mg PO BID PRN PRN Reason: Anxiety Last Admin: 03/15/25 19:57 Dose: 1 mg Losartan Potassium (Losartan Potassium 50 Mg Tablet) 100 mg PO DAILY [facility]; Protocol Last Admin: 03/16/25 07:56 Dose: 100 mg Magnesium Hydroxide (Milk Of Magnesia 30 Ml Oral.Susp) 30 ml PO DAILY PRN PRN Reason: Constipation Melatonin (Melatonin 3 Mg Tablet) 6 mg PO BEDTIME PRN PRN Reason: Insomnia Last Admin: 03/16/25 02:12 Dose: 6 mg Methylprednisolone Sodium Succinate (Methylprednisolone Sod Succ 40 Mg Vial) 40 mg IVPUSH Q8H [facility] Last Admin: 03/16/25 10:26 Dose: 40 mg Metoprolol Tartrate (Metoprolol Tartrate 100 Mg Tablet) 100 mg PO BID [facility]; Protocol Last Admin: 03/16/25 07:55 Dose: 100 mg Pt Owned Med ( Theophylline 200mg Er Capsule) 1 each PO DAILY [facility] Last Admin: 03/16/25 07:59 Dose: 1 each Omeprazole (Omeprazole 20 Mg Capsule.Dr) 20 mg PO DAILY@0630 [facility] Last Admin: 03/16/25 05:48 Dose: 20 mg Sodium Chloride (0.9 % Sodium Chloride Flush 3 Ml Syringe) 3 ml IVFLUSH QSHIFT [facility] Last Admin: 03/16/25 07:59 Dose: 3 ml Home Medications ?Medication ?Instructions ?Recorded ?Confirmed ?Last Taken ?Type amlodipine 5 mg tablet 5 mg PO DAILY blood pressure 07/28/20 03/14/25 03/14/25 History levalbuterol HCl 1.25 mg/3 mL 1.25 mg inhalation Q4H PRN 07/28/20 03/14/25 Unknown History solution for nebulization Shortness Of Breath Or Wheezing losartan 100 mg tablet 100 mg PO DAILY 07/28/20 03/14/25 03/14/25 History metoprolol tartrate 100 mg tablet 100 mg PO BID 07/28/20 03/14/25 03/14/25 History clonidine HCl 0.2 mg tablet 0.2 mg PO BID 07/30/21 03/14/25 03/14/25 History omeprazole 20 mg capsule,delayed 20 mg PO DAILY@0630 07/30/21 03/14/25 03/14/25 History release amlodipine 2.5 mg tablet 2.5 mg PO DAILY 03/14/25 03/14/25 03/14/25 History aspirin 81 mg tablet,delayed 81 mg PO DAILY 03/14/25 03/14/25 03/14/25 History release budesonide 160 mcg-glycopyr 9 2 inh inhalation BID 03/14/25 03/14/25 03/14/25 History mcg-formot 4.8 mcg/actuation HFA inhaler (Breztri Aerosphere) budesonide-formoterol HFA 160 2 puff inhalation BID 03/14/25 03/14/25 03/14/25 History mcg-4.5 mcg/actuation aerosol inhaler (Symbicort) theophylline 200 mg 200 mg PO DAILY 03/14/25 03/14/25 03/14/25 History capsule,extended release 24 hr (Demond-24) Physical Exam Vital Signs: Last Vital Signs Temp 97.9 F 03/16/25 06:45 Pulse 70 03/16/25 11:50 Resp 14 03/16/25 11:50 BP 136/61 03/16/25 06:45 Pulse Ox 97 03/16/25 06:45 O2 Del Method Nasal Cannula 03/16/25 06:45 O2 Flow Rate 3.5 03/16/25 06:45 Oxygen Flow Rate 3 03/14/25 07:19 BMI result Body Mass Index 24.8 Const General: no acute distress, alert and awake Resp Effort & Inspection: normal respiratory effort and able to speak in complete sentences Auscultation: clear to auscultation bilaterally Cardio Rate: regular rate Rhythm: regular rhythm Heart sounds: S1 normal heart sound present and S2 normal heart sound present GI Palpation (GI): Soft to palpation and nontender General: Yes no CVA tenderness Back/Spine/Pelvis Back: no CVA tenderness Skin Rashes: no rashes Extrem General: No edema Results Lab Results 03/15/25 05:42 03/16/25 08:11 Lab results: Chemistry 03/14/25 03/14/25 03/14/25 08:04 14:07 20:07 Sodium 121 L 123 L 125 L Potassium 4.4 4.6 3.8 Carbon Dioxide 27 26 24 BUN 5 L 6 L 6 L Creatinine 0.55 0.57 0.54 Calcium 9.3 8.9 8.7 03/15/25 03/16/25 05:42 08:11 Sodium 129 L 128 L Potassium 4.9 D 4.0 Carbon Dioxide 29 27 BUN 6 L 9 Creatinine 0.50 0.49 L Calcium 9.2 8.6 D Hematology 03/14/25 03/15/25 08:04 05:42 WBC 15.5 H 11.9 H Hgb 15.0 13.8 Plt Count 272 268 Urine Studies 03/14/25 14:42 Urine Osmolality 159 L Assessment and Plan (1) Hyponatremia: Status: Acute Plan Hyponatremia likely multifactorial patient with poor PO intake prior to admission, hypovolemia likely contributing to low sodium given low urine sodium patient had plateau in urine sodium with slight drop today- likely now euvolemic, 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 Recommend fluid restriction of 1.2L/24 hours no indication for sodium tablets or urea powder at this time. Continue supportive care Discussed with Dr Miguelito Barboza Date of Service Date of Service: 03/16/25
[2025-03-16] MEDS: LORazepam 1 MG TABLET PO (13:30)
--- NOTE | 2025-03-16 15:13 | MHC.CLN ---
F/U PATIENT WITH STAGE II PRESSURE INJURY TO RIGHT BUTTOCK. PO INTAKE VARIABLE, 50-100%. DIET=REGULAR. ENSURE BID TO PROMOTE WOUND HEALING. SUPPLEMENT PROVIDES 700 KCALS, 40 G PROTEIN. MONITOR PO INTAKE AND ENCOURAGE SUPPLEMENT.
[2025-03-16] MEDS: Benzonatate 100 MG CAPSULE PO (21:29)
[2025-03-17] MEDS: LORazepam 1 MG TABLET PO (01:29)
[2025-03-17] MEDS: methylPREDNISolone Sod Succ 40 MG VIAL IVPUSH ×2 (01:29→09:47)
[2025-03-17 03:59] VITALS: BP 142/69; PULSE 61; RESP 18; TEMP 36.8; O2SAT 95
[2025-03-17] MEDS: Omeprazole 20 MG CAPSULE.DR PO (05:46)
[2025-03-17] MEDS: Benzonatate 100 MG CAPSULE PO (05:49)
[2025-03-17] MEDS: guaiFENesin 100 MG/5 ML 5 ML LIQUID PO (05:49)
[2025-03-17 06:27] LABS: Anion Gap 14 (12-20); Blood Urea Nitrogen 9 mg/dL (9-16); Calcium 9.4 mg/dL (8.4-10.2); Carbon Dioxide 29 mmol/L (22-29); Chloride 92 mmol/L (96-108); Creatinine Clr Calc Pharmacy 92.4; Estimated Glomerular Filt Rate > 60; Glucose Random 132 mg/dL (60-115); Potassium 4.5 mmol/L (3.3-5.1); Sodium 130 mmol/L (135-145)
[2025-03-17 07:19] VITALS: PULSE 77; RESP 18; O2SAT 92
[2025-03-17] MEDS: Albuterol/Iprat 2.5/0.5MG 3 ML AMPUL.NEB INHALE (07:19)
[2025-03-17 07:30] VITALS: BP 132/62; PULSE 74; RESP 14; TEMP 36.9; O2SAT 92
[2025-03-17] MEDS: cloNIDine HCL 0.2 MG TABLET PO (08:19)
[2025-03-17] MEDS: Losartan Potassium 50 MG TABLET 100 MG PO (08:19)
[2025-03-17] MEDS: Aspirin Enteric Coated 81 MG TABLET.DR PO (08:19)
[2025-03-17] MEDS: amLODIPine Besylate 5 MG TABLET PO (08:20)
[2025-03-17] MEDS: Metoprolol Tartrate 100 MG TABLET PO (08:20)
[2025-03-17] MEDS: amLODIPine Besylate 2.5 MG TABLET PO (08:20)
[2025-03-17] MEDS: 0.9 % Sodium Chloride Flush 3 ML SYRINGE IVFLUSH (08:24)
--- NOTE | 2025-03-17 08:24 | PM.DS ---
DS: Providers Provider Date of Service: 03/17/25 Date of admission: 03/14/25 10:25 Date of discharge: 03/17/25 Primary care physician: Socorro Hunt MD Consults: 03/14/25 13:35 Consult to Wound Care Routine Reason for consultation: healing stage 2 right inner buttocks 03/16/25 10:51 Consult to Nephrology Routine Consulting Provider: [facility] Reason for consultation: acute on chronic hyponatremia DS: Diagnosis Discharge Diagnosis (1) Hyponatremia: Status: Acute DS: Summary Hospital Course Hospital Course: Chief Complaint: shortnes of breath The patient is a 64-year-old female with a past medical history significant for COPD and chronic respiratory failure with hypoxia on 2-3 L supplemental oxygen, pulmonary nodules, hypertension, hypercholesterolemia, prior [place] who presents to the emergency room with a 3-4 day history of progressive shortness of breath and fatigue. The patient reports hypoxia at home on her baseline supplemental oxygen into the 70s. She reports increasing her supplemental oxygen to 5 L with minimal improvement in her oxygenation. She reports nonproductive cough. She denies any fevers or chills. She reports poor oral intake with decreased appetite. Due to ongoing symptoms she presented to the emergency room. She reports her last COPD hospitalization was more than 2 years ago. In the ED, the patient was treated with multiple rounds of nebulized bronchodilators, IV systemic steroids, IV antibiotics, IV magnesium, but remained symptomatic and hence will be admitted for further care. Further workup also revealed hyponatremia with a serum sodium of 121. Hospital course: 64 yo F with with COPD, chronic resp failure and steroid dependant who presents with a several day history of progressive SOB, fatigue and non-productive cough. She is also noted to have hypONatremia as well. She was admitted for [facility] acute copd exacerbation with underlying chronic tobacco use. And management of hyponatremia. 1. Acute on chronic COPD exacerbation, chronic resp failure with hypoxia on home O2. There was no evidence of underlying infection but was empirically treated with IV Rocephin and will transition to Cefuroxime for a toal of 5 days. She was treated with IV Solu-Medrol, bronchodilators by nebulizer, cough medications as needed. She has made good recovery over the course of hospitalization she feels much better, her breathing is more comfortable she is strongly encouraged to stop smoking. NRT is offered. 2. 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 She presented with sodium level of 121 and was given some IV with improvement. Sodium has steadily risen to 123 then 125 then 128 and to 130. She she was evaluated by Nephrology with recommendation for a fluid restriction of 1200 cc a day. She will follow up with Nephrology on outpatient basis. 3. HTN, BP wnl this AM continue clonidine, losartan and metoprolol 4.HLD statin Final diagnoses: Acute acute exacerbation of COPD with underlying chronic respiratory failure Acute on chronic hyponatremia SIADH Time Attestation Discharge Coordination Time (in mins): 40 Quality: Safe Use of Opioids Does Pt have an Active Cancer Diagnosis on the Problem List?: No Quality: Stroke Does the patient have a stroke diagnosis?: No Physical Exam Vital Signs: Vital Signs: Last Vital Signs Temp 98.5 F 03/17/25 07:30 Pulse 74 03/17/25 07:30 Resp 14 03/17/25 07:30 BP 132/62 03/17/25 07:30 Pulse Ox 92 03/17/25 07:30 O2 Del Method Nasal Cannula 03/17/25 07:30 O2 Flow Rate 1 03/17/25 07:30 Oxygen Flow Rate 3 03/14/25 07:19 BMI result Body Mass Index 24.8 Const: Other: General: AO X 3, no acute distress Resp: CTA bilateral CVS: S1,S2,RRR GI: +BS, NT, no distention Skin: No rash Neuro: motor grossly intact Psych: appropriate affect DS: Data Data Completed and Pending Labs on day of discharge: Laboratory Results - last 24 hr 03/16/25 03/17/25 08:11 05:42 Sodium 128 L 130 L Potassium 4.0 4.5 Chloride 92 L 92 L Carbon Dioxide 27 29 Anion Gap 13 14 BUN 9 9 Creatinine 0.49 L 0.53 Estim Creat Clear Calc 100.0 92.4 Estimated GFR > 60 > 60 Random Glucose 164 H 132 H Calcium 8.6 D 9.4 D Preliminary micro results at discharge 03/14/25 07:59 Blood Culture - Preliminary Blood - Venous No growth after 48 hours. 03/14/25 07:53 Blood Culture - Preliminary Blood - Venous No growth after 48 hours. Discharge Plan Discharge Anticipated Discharge Date/Time: 03/17/25 08:20 Patient Disposition: Home, Self-Care Discharge Diagnosis: Acute exacerbation of COPD, Hyponatremia Referrals: Socorro Hunt MD [Primary Care Provider, Internal Medicine] - 1 Week Discharge Medications: New prednisone 20 mg tablet 40 mg PO DAILY Qty: 4 0RF Continued albuterol sulfate 2.5 mg /3 mL (0.083 %) solution for nebulization 2.5 mg inhalation Q4H PRN (Reason: for wheezing) Qty: 150 0RF albuterol sulfate 90 mcg/actuation HFA aerosol inhaler 2 puff inhalation Q4-6H PRN (Reason: for wheezing) Qty: 20.1 1RF lorazepam [Ativan] 1 mg tablet 1 mg PO BID PRN (Reason: anxiety) 30 Days Qty: 60 3RF amlodipine 2.5 mg tablet 2.5 mg PO DAILY Breztri Aerosphere 160-9-4.8 mcg/actuation HFA aerosol inhaler 2 inh INHALATION BID aspirin 81 mg Tablet,Delayed Release (Dr/Ec) 81 mg PO DAILY clonidine HCl 0.2 mg tablet 0.2 mg PO BID omeprazole 20 mg capsule,delayed release(DR/EC) 20 mg PO DAILY@0630 amlodipine 5 mg tablet 5 mg PO DAILY metoprolol tartrate 100 mg tablet 100 mg PO BID losartan 100 mg tablet 100 mg PO DAILY levalbuterol HCl 1.25 mg/3 mL solution for nebulization 1.25 mg inhalation Q4H PRN (Reason: Shortness Of Breath Or Wheezing) prednisone 5 mg tablet 5 mg PO BID Qty: 60 6RF No Action Demond-24 200 mg capsule,extended release 24hr 200 mg PO DAILY Qty: 30 0RF budesonide-formoterol [Symbicort] 160-4.5 mcg/actuation HFA aerosol inhaler 2 puff inhalation BID Qty: 10.2 0RF Discharge Orders: Discharge Order (Routine); Ordered 03/17/25 Ordered By: Alex Abdalla Diet: Advance to usual diet Activity on Discharge: As tolerated Stand Alone Forms: Patient Portal Discharge page Print Language: Swedish Care Plan Goals: COPD exacerbation and hyponatremia. Health Concerns: Acute on chronic hyponatremia COPD with acute exacerbation Chronic tobacco use disorder Plan of Treatment: Take prednisone as directed for an S3 days. Continue using inhalers as before. Avoid excessive water drinking, drank about 1200 cc a day Follow-up with your primary care doctor within a week, call for appointment Smoking cessation is strongly encouraged Assessment: See above Discharge Date/Time: 03/17/25 11:14
--- NOTE | 2025-03-17 09:07 | MHC.CM.PN ---
PT TO DC HOME TODAY WITH NO SERVICES VIA PRIVATE TRANSPORT
[2025-03-17] MEDS: cefTRIAXone sodium 1 GM VIAL IVPUSH (09:25)
== END 2025-03-17 11:14 | disposition home or self-care (01) | DRG 140 ==
LOC: HO.ED 10:10 → HO.EDOVER 10:40 → HO.S3 12:15
PROVIDERS: Admitting Provider Family Medicine; Emergency Provider Emergency Medicine; PCP Internal Medicine; Visit Provider Internal Medicine
DX: J44.1 Chronic obstructive pulmonary disease with (acute) exacerbation (principal); L89.312 Pressure ulcer of right buttock, stage 2; J96.11 Chronic respiratory failure with hypoxia; E22.2 Syndrome of inappropriate secretion of antidiuretic hormone; Z99.81 Dependence on supplemental oxygen; F17.210 Nicotine dependence, cigarettes, uncomplicated; E78.5 Hyperlipidemia, unspecified; E86.1 Hypovolemia; Z90.2 Acquired absence of lung [part of]; Z71.6 Tobacco abuse counseling; Z20.822 Contact with and (suspected) exposure to COVID-19; Z79.82 Long term (current) use of aspirin; Z79.899 Other long term (current) drug therapy
CPT/HCPCS: 0241U; 36415; 71045; 80048; 80053; 82803; 83605; 83935; 84300; 84484; 85025; 85027; 86140; 87040; 93005; 94640; 99285; J0456; J0696; J1650; J2405; J2919; J3475

== ENCOUNTER → 2025-03-14 07:20 | Outpatient (BNV) | payer OTHER, SELFPAY ==
[2024-07-27 11:31] VITALS: BMI 22.6
== END ==
PROVIDERS: Admitting Provider Family Medicine; Emergency Provider Emergency Medicine; PCP Internal Medicine; Visit Provider Internal Medicine
DX: R06.00 Dyspnea, unspecified (principal)
CPT/HCPCS: 93010

== ENCOUNTER → 2025-03-14 07:23 | Outpatient (BNV) | payer OTHER, SELFPAY ==
[2024-07-27 11:31] VITALS: BMI 22.6
== END ==
PROVIDERS: Emergency Provider Emergency Medicine; PCP Internal Medicine; Visit Provider Radiology Diagnostic Radiology
DX: R91.8 Other nonspecific abnormal finding of lung field (principal)
CPT/HCPCS: 71045

== ENCOUNTER → 2025-03-14 10:25 | Outpatient (BNV) | payer OTHER, SELFPAY ==
[2024-07-27 11:31] VITALS: BMI 22.6
== END ==
PROVIDERS: Admitting Provider Family Medicine; Emergency Provider Emergency Medicine; PCP Internal Medicine; Visit Provider Nurse Practitioner Family
DX: E87.1 Hypo-osmolality and hyponatremia (principal)
CPT/HCPCS: 99221

== ENCOUNTER → 2025-03-14 10:25 | Outpatient (BNV) | payer OTHER, SELFPAY ==
[2024-07-27 11:31] VITALS: BMI 22.6
== END ==
PROVIDERS: Admitting Provider Family Medicine; Emergency Provider Emergency Medicine; PCP Internal Medicine; Visit Provider Family Medicine
DX: J44.1 Chronic obstructive pulmonary disease with (acute) exacerbation (principal)
CPT/HCPCS: 99232

== ENCOUNTER 2025-04-11 13:23 | Outpatient (REF) | payer MEDICARE, MEDICAID, SELFPAY ==
[2024-07-27 11:31] VITALS: BMI 22.6
[2025-04-11 14:45] LABS: MANUAL DIFF FLAG NO
[2025-04-11 15:12] LABS: Hematocrit 42.6 % (37.0-47.0); Hemoglobin 14.4 g/dl (12.0-16.0); Imm Gran Abs Auto 0.23 X10*3/uL (0.00-0.03); Imm Gran Pct Auto 1.8 % (0.0-0.4); Lymphocytes Absolute Auto 2.6 X10*3/uL (1.2-4.9); Mean Corpuscular HGB Conc 33.8 g/dl (31.0-35.0); Mean Corpuscular Hemoglobin 34.0 pg (27.0-33.0); Mean Corpuscular Volume 100.7 fL (80.0-98.0); NRBC Abs Auto 0.000 X10*3/uL (0.0-0.012); NRBC Pct Auto 0.0 /100WBC (0.0-0.2); Platelet Count 267 X10*3/uL (160-400); Red Blood Count 4.23 X10*6/uL (4.20-5.50); White Blood Count 13.0 X10*3/uL (4.8-10.8)
[2025-04-11 15:34] LABS: Alanine Aminotransferase 18 U/L (0-31); Albumin Level 4.1 g/dL (3.5-5.0); Alkaline Phosphatase 80 U/L (39-117); Anion Gap 17 (12-20); Aspartate Amino Transferase 22 U/L (5-31); Blood Urea Nitrogen 9 mg/dL (9-16); Calcium 9.5 mg/dL (8.4-10.2); Carbon Dioxide 27 mmol/L (22-29); Chloride 97 mmol/L (96-108); Cholesterol 254 mg/dL (<200); Estimated Glomerular Filt Rate > 60; HDL Cholesterol 85 mg/dL (>40); Potassium 4.8 mmol/L (3.3-5.1); Sodium 136 mmol/L (135-145); Total Protein 6.8 g/dL (6.5-8.0); Triglycerides 118 mg/dL (<150)
== END 2025-04-11 13:24 | disposition home or self-care (01) ==
LOC: HO.LAB 13:23
PROVIDERS: PCP Internal Medicine; Visit Provider Internal Medicine
DX: J44.1 Chronic obstructive pulmonary disease with (acute) exacerbation (principal); E87.1 Hypo-osmolality and hyponatremia; G62.9 Polyneuropathy, unspecified; R09.02 Hypoxemia; Z79.52 Long term (current) use of systemic steroids; Z87.891 Personal history of nicotine dependence; Z99.81 Dependence on supplemental oxygen
CPT/HCPCS: 36415; 80053; 80061; 85025; 99212

== ENCOUNTER 2025-04-11 13:23 | Outpatient (AMB) | payer MEDICARE, MEDICAID, SELFPAY ==
[2024-07-27 11:31] VITALS: BMI 22.6
[2025-04-11 13:58] VITALS: BP 104/62; PULSE 89; O2SAT 94
--- NOTE | 2025-04-11 13:58 | A.OFFVIS_ITS ---
Vital Signs 04/11/25 13:58 Weight 134 lb BP 104/62 Blood Pressure Location Rt brachial Position Sitting Pulse 89 Pulse Source Pulse Oximeter Pulse Oximetry (%) 94 Oxygen Delivery Method Nasal Cannula Oxygen Flow Rate 2.5 Intake Visit Reasons: COPD Allergies meperidine (From DEMEROL) Allergy (Severe, Verified 03/14/25 07:21) NAUSEA & VOMITING,SWELLING morphine (MORPHINE) Allergy (Mild, Verified 03/14/25 07:21) NAUSEA & VOMITING, SWELLING HPI HPI COPD: Details: 64-year-old lady, recent 35+ pack-year smoker, followed for severe to very severe supplemental oxygen 2-3L dependent COPD and pulmonary nodules.? She has been using BrezTri, Symbicort, theophylline, and albuterol MDI.? She can no longer afford theophylline. She also has been using lorazepam twice a day for anxiety to reduce hyperventilation and air trapping with good effect. Her follow-up lung cancer screening CT chest showed no worrisome pulmonary nodules. Her insurance is set to change again to the [employer] on 04/12/2025. Patient has recently been hospitalized for acute exacerbation and still has residual symptoms. [facility] Medical History (Updated 04/11/25 @ 14:25 by Mandeep Ivan MD) COPD (chronic obstructive pulmonary disease) High cholesterol HTN (hypertension) Myocardial infarct COPD (chronic obstructive pulmonary disease) Surgical History Hx of cataract extraction History of lung surgery Hx of heart artery stent Hx of excision of mass History of nasal surgery H/O colonoscopy History of esophagogastroduodenoscopy (EGD) H/O: hysterectomy Hx of section Social History Household Members: Spouse Household Members Other:: Housing: House Are you a primary hemodialysis patient care specialist to a significant other at home: No Do you presently have visiting nurse or other home services: No Patient Tobacco Use Status: Current someday Tobacco user Tobacco use type: Cigarette Cigarettes Per Day: 7 Years Smoked: 35+ e-Cigarette/Vaping Use: Never Used Second Hand Smoke Exposure: No service: No Review of Systems Const Denies daytime sleepiness, Denies excessive sweating, Denies fatigue, Denies fever(s), Denies lethargy, Denies malaise, Denies night sweats, Denies snoring and Denies weight loss Eyes Denies blurry vision and Denies itchy eyes ENT Denies nasal congestion, Denies post nasal drip, Denies sinus pain, Denies sinus pressure and Denies other ( Thrush) Card Denies chest pain, Denies pedal edema, Reports dyspnea, Reports dyspnea on exertion, Denies orthopnea and Denies paroxysmal nocturnal dyspnea Resp Reports cough, Denies hemoptysis, Reports excessive phlegm production, Reports dyspnea, Reports dyspnea on exertion, Denies snoring and Denies wheezing GI Denies abdominal pain and Denies heartburn Musc Denies myalgias, Denies arthralgias and Denies joint swelling Skin/Breast Denies rash Neuro Denies memory loss and Denies seizure-like activity Psych Denies abnormal sleep pattern, Denies anxiety and Denies memory loss Endo Denies excessive sweating, Denies fatigue and Denies heat intolerance Anders/Lymph Denies easy bruising Aller/Immun Denies itchy eyes, Denies seasonal rhinorrhea and Denies wheezing Physical Exam Vital Signs: Last Vital Signs Pulse 89 04/11/25 13:58 BP 104/62 04/11/25 13:58 Pulse Ox 94 04/11/25 13:58 Oxygen Delivery Method Nasal Cannula 04/11/25 13:58 Oxygen Flow Rate 2.5 04/11/25 13:58 Const General: no acute distress and alert Nutritional Appearance: not obese Orientation/consciousness: Other orientation findings ( oriented) HEENT Head: Yes atraumatic Eyes General: appearance normal, both eyes and all related structures Sclerae: sclerae normal EOM: EOMs intact bilaterally Neck Neck: Yes supple Lymphatic: no lymphadenopathy noted Resp Effort & Inspection: normal respiratory effort and no use of accessory muscles Auscultation: rales (Bilateral) Cardio Rate: regular rate Rhythm: regular rhythm Heart sounds: no gallops, no murmurs and no rubs Skin General skin exam: other ( warm) Extrem General: No clubbing, No cyanosis and No edema Assessment & Plan Assessment & Plan (1) COPD (chronic obstructive pulmonary disease): Code(s): J44.9 - Chronic obstructive pulmonary disease, unspecified Category: Medical Plan: All reasonable control on Breztri, Symbicort, albuterol MDI, nebs, though worsening as she no longer can afford theophylline. Still with residual post exacerbation symptoms. Will extend antibiotic course for the next 14 days. Continue prednisone 10 mg daily. (2) Supplemental oxygen dependent: Code(s): Z99.81 - Dependence on supplemental oxygen Category: Medical Plan: Continue supplemental oxygen to maintain O2 saturation of 89-93%. (3) Personal history of nicotine dependence: Code(s): Z87.891 - Personal history of nicotine dependence Category: Medical Plan: Continue lung cancer screening, next in July of 2025. Coding Level of Care Code Est Pt Level 4 (36629) Complex EM visit Add On G2211 Diagnoses COPD (chronic obstructive pulmonary disease) J44.9 Supplemental oxygen dependent Z99.81 Personal history of nicotine dependence Z87.891
--- OUTSIDE RECORDS SUMMARY | 2025-04-11 14:06 | XMS_ITS | Clinical Summary ---
Author Organization [facility] Address [address] [place] [address] Phone Care Team Providers Care Finding Fastener Name Role Phone Socorro Hunt MD Primary Care Provider [phone] Allergies Active Allergy Reactions Criticality Noted Date [...] Date Diagnosed Date Chronic obstructive lung disease ([facility] V24, [facility] V28) 12/23/2024 Osteoporosis 12/23/2024 Myocardial infarction ([facility] V24, [facility] V28) 12/23/2024 Overview (12/23/2024): 2014 Lung mass [...] Overview (12/23/2024): with stent HTN (hypertension) 08/08/2008 Immunizations Name Administration Dates Next Due H1N1 [...] Hypertension COPD (chronic obstructive pu lmonary disease) ([facility] V24, [facility] V28) Family History Medical History Relation Name [...] Years (1 of 2 - PCV) 1979 Cervical Cancer Screening: P ap Smear 1981 Zoster Vaccines (1 of 2) 2010 Cholesterol Screening (Lipid Panel) 10/23/2019 Colorectal Cancer Screening: Colonoscopy 10/23/2019 HIV Screening 10/23/2019 Hepatitis C Screening 10/23/2019 Osteoporosis Screening (Bone Density Screening) 10/23/2019 Social Influencers of Health Screening 10/23/2019 RSV Immunization Adult Patients (1 - Risk 60-74 years 1-dose series) 2020 Hypertension/CHF/CAD Annual BMP Blood Test 09/07/2022 COVID-19 Vaccine (4 - 2023-2 5 season) 2024 09/19/2021, 11/06/2020, 10/09/2020 Depression Screening 09/22/2024 Influenza Vaccine (#1) 2025 7, 09/07/2009, 09/07/2009 MMR Vaccines Aged Out 04/01/2006 [...] topic Insurance MEDICAID - [place] Care Teams Finding Fastener Relationship Specialty Start Date End Date Socorro Hunt MD [address] [place] [address] [place] [address] PCP - General Internal Medicine 12/20/24
--- OUTSIDE RECORDS SUMMARY | 2025-04-11 14:06 | XMS_ITS | Patient Health Record ---
Author Organization [facility] Address [address] [facility] [address] [place] [phone] Care Team Providers Care [employer] Senior Sergeant Name Role Phone Angelina BILLINGS, Alfred Primary Care Provider Dominic Omalley Unavailable [phone] Allergies Allergen (clinical drug ingredient) Drug/Non Drug Allergy documented on EMR Reaction Allergy Type Onset Date Status morphine Morphine Sulfate Unknown Drug Allergy Active meperidine Demerol Unknown Drug Allergy Active Blueberries blueberries (uncoded) Unknown Allergy Active Results Component Value Reference Range Notes Pathology Reviewed date:10/26/2024 06:38:13 PM Interpretation: Performing Lab:[facility], [address] [place] [id number] Notes/Report: Reason For Referral Referring Provider First Name Socorro Referring Provider Last Name Gilbert Referring Provider Speciality Internal M edicine Referred Organization [facility] Referred Provider Dominic Weems Referred Address [address] [facility],[place] [address] [place] [phone], Referred Provider Specialty Gastroentero logy General Notes [...] Problem Status W/U Status Risk Notes Problem 167020602 Colon cancer screening (Z12.11) Active confirmed Problem 82835020 Rectal bleeding (K62.5) Active confirmed Problem 125260749 History of adenomatous polyp of colon (Z86.010) Active confirmed Problem Diverticulosis o f large intestine without perforation or abscess without bleeding (K57.30) Active confirmed Problem Dysphagia (20990376) Dysphagia (R13.10) Active confirmed Problem 977465244 Family history o f colon cancer (Z80.0) Active confirmed Problem 01624805 Rectal bleed (K62.5) Active confirmed Problem Gastritis (0183180) Gastritis (K29.70) Active confirmed Problem 215965944 Irregular bowel habits (R19.8) Active confirmed Problem Esophageal reflux finding (594797456) Gastroesophageal reflux (K21.9) Active confirmed Problem 79117977 Diarrhea, unspecified type (R19.7) Active confirmed Problem 38110935 Irritable bowel syndrome with both constipation and diarrhea (K58.2) Active confirmed Problem 463338570 Gastroesophageal reflux disease, unspecified whether esophagitis present (K21.9) Active confirmed Problem 68285430 Esophageal dysph agia (R13.19) Active confirmed Vital Signs Blood pressure diastolic 00 mm Hg 06/17/2024 Height 64 in 06/17/2024 Blood pressure systolic 00 mm Hg 06/17/2024 Weight 135 lbs 06/17/2024 BMI 23.17 kg/m2 06/17/2024 Encounters Encounter Location Date Provider Diagnosis [facility] [place] [address] [place] [id number] 10/18/2024 Dominic Weems Colon cancer screeni ng Z12.11 ; Personal history of colonic polyps Z86.0100 ; Family history of colon cancer Z80.0 ; Diverticulosis of large intestine without perforation or abscess without bleeding K57.30 and Other hemorrhoids K64.8 [facility] [address] [place] [phone] 06/17/2024 Dominic Weems Irritable bowel syndrome with both constipation and diarrhea K58.2 ; History of adenomatous polyp of colon Z86.010 ; Family history of colon cancer Z80.0 and Colon cancer screening Z12.11 [facility] [address] [place] [phone] 2024 Dominic Weems [facility] [address] [place] [phone] 10/25/2024 Dominic Weems [facility] [address] [place] [address] 01/24/2025 Dominic Weems Irritable bowel syndrome with [...] after her 08/2024 appt with him Overall, Miono appears well considering her ongoing smoking and [...] Start Date Coverage End Date MEDICAID OF [facility] [address] [place] [address] [id number] MINOO GOMEZ Self - patient is the insured Medical (General) History Medical History History ICD Code COPD--wears oxygen for walking--[place] Ivan [place] [facility] [place] 12/2013--had 1 stent placed---fine since Colonoscopies [...]
== END 2025-04-11 14:24 | disposition home or self-care (01) ==
LOC: HO.HPS 13:23
PROVIDERS: PCP Internal Medicine; Visit Provider Internal Medicine Pulmonary Disease
DX: J44.9 Chronic obstructive pulmonary disease, unspecified (principal); Z99.81 Dependence on supplemental oxygen; Z87.891 Personal history of nicotine dependence
CPT/HCPCS: 99214; G2211